=== PATIENT | female | born 1930 | race Caucasian/White ===

== ENCOUNTER → 2016-11-24 | Outpatient (CLI) | payer MEDICARE ==
[~2016-11-24] MED LIST: /ADVA50050; /LANS30GR; /TIOT18INH; /TIOT18INH INH; /WARF25TA; /WARF25TA OR; /WARF5TA; ACET65TA; ACUVAIL OU; ASPI1TAB PO; ASPI81TA3; ASPI81TA45 OR; ATOR1TAB21 PO; BONIVA; CALCCHW12; CALCCHW12 OR; CEFT500T; CIPR250T3 PO; CODCAP PO; COLA100C PO; COLA100C2 OR; COUM1TAB; COUM1TAB OR; COUM2.5T11 PO; DARV100T; DIET; DIGO0.126 OR; DIGO0.127 PO; FERR324T5 OR; FERR325T; FERROUS SULFATE; FURO20TA2 PO; KETOROLAC 0.5% OU; KLOR-CON; KLOR10TA; KLOR10TA OR; KLOR1TAB69 PO; LANO0.1211; LANO0.1211 OR; LANO1TAB23 PO; LASI20TA; LASI20TA OR; LASI40TA; LASIX; LEVO50TA45 PO; LEVO50TA5 PO; METO-346 PO; METO25TA2 OR; METO25TAB PO; METOPROLOL; METOPROLOL TARTRATE; MIRALEX PO; NITR0.3S SL; NORCOTAB PO; NORV5TAB; PERC5TAB8; PLAV75TA2; PLAV75TA2 OR; POTA10CA PO; POTA20TA2; PRED FORTE OU; PRED10TA2; PRED5TAB; PREV30TA OR; PROA1AER INH; RAMI25CA OR; RANI150C OR; RANI15TA PO; SENN8.6C PO; SIMV20TA2 OR; SYNT50TA; SYNT50TA OR; SYNT75TA PO; TIOT18INH INH; TOPR25TA OR; TRAM50TA2 OR; TRIC145T19; TYLENOL ARTHRITIS PO; VIT D 2000 PO; VITA100T17; VITA100T17 OR; VITA100T56 PO; VITA200016 PO; VITAMIN D; VITAMINE D; WARF1TAB OR; ZITH500T; ZOCO20TA; ZOCO40TA OR; [UNRECOGNIZED DRUG - REMARK]; [UNRECOGNIZED DRUG - REMARK]
--- NOTE | 2016-11-24 15:38 | REP ---
Chest x-ray: Two views. History: Cough. Comparison chest x-ray October 14, 2016. Findings: Epicardial pacemaker is seen unchanged. Moderate to marked cardiomegaly is again observed. The lungs are hyperinflated consistent with COPD. There is biapical pleuroparenchymal fibrosis. There is a linear density in the right upper perihilar region compatible with atelectasis or fibrosis. No pleural effusion is seen. No localized infiltrate is seen. There is marked diffuse osteopenia and lateral radiograph demonstrates wedging in most of the thoracic vertebrae. This exaggerates the thoracic kyphosis. Impression: Evidence of COPD with hyperinflation. Moderate to marked cardiomegaly with epicardial pacemaker in place. Biapical pleuroparenchymal fibrosis. Right upper lobe discoid atelectasis or linear fibrosis. Multiple osteoporotic wedge compression deformities in the thoracic spine with exaggerated thoracic kyphosis. Signed by Chandana Vallejo MD 11/24/2016 04:24 P
== END ==
LOC: M WUC 14:36
PROVIDERS: ATTEND Nurse Practitioner Family
DX: R05 Cough (principal)

== ENCOUNTER 2016-11-27 16:51 | Inpatient (IN) | payer MEDICARE ==
[~2016-11-27] VITALS: Ht 147.3 cm; Wt 44.8 kg
[2016-11-27] MEDS ORDERED: WARFARIN SOD 2.5 MG TAB PO SCH (17:00)
[2016-11-27] MEDS ORDERED: methylPREDNISolone INJ 125 MG/2 ML VIAL (J2930) As Ordered ONE (18:03)
[2016-11-27] MEDS ORDERED: IPRATROPIUM 0.5MG/ALBUTEROL 2.5MG INH SOL UD 3ML (DUONEB)(J7620) As Ordered ONE (18:05)
[2016-11-27 18:29] LABS: EOS # 0.1 K/mm3 (0.0-0.50); EOS % 3.1 % (0.0-3.0); LARGE UNSTAINED CELL # 0.2 K/mm3 (0.0-0.4); LARGE UNSTAINED CELL % 5.3 % (0.0-4.0); LYMPH # 1.5 K/mm3 (1.5-4.5); LYMPH % 43.7 % (24.0-44.0); MEAN CORPUSCULAR HEMOGLOBIN 30.6 pg (27.0-33.0); MEAN CORPUSCULAR HGB CONC 32.8 g/dl (32.0-36.5); MEAN CORPUSCULAR VOLUME 93.4 fl (80.0-96.0); MONO # 0.4 K/mm3 (0.0-0.8); MONO % 12.2 % (0.0-5.0); NEUTROPHILS % 34.7 % (36.0-66.0); PLATELET COUNT, AUTOMATED 102 k/mm3 (150-450); RED CELL DISTRIBUTION WIDTH 12.4 % (11.5-14.5)
[2016-11-27 18:35] LABS: INR 1.41
[2016-11-27 18:54] LABS: ANION GAP 9 MEQ/L (8-16); BLOOD UREA NITROGEN 29 MG/DL (7-18); CALCIUM LEVEL 8.3 MG/DL (8.8-10.2); CARBON DIOXIDE LEVEL 30 MEQ/L (21-32); CHLORIDE LEVEL 100 MEQ/L (98-107); CREATININE FOR GFR 1.04 MG/DL (0.55-1.02); GLOMERULAR FILTRATION RATE 53.5 (>32); GLUCOSE, FASTING 99 MG/DL (83-110); POTASSIUM SERUM 4.2 MEQ/L (3.5-5.1); SODIUM LEVEL 139 MEQ/L (136-145)
[2016-11-27 19:04] LABS: DIGOXIN LEVEL 0.7 NG/ML (0.5-2.0)
[2016-11-27] MEDS ORDERED: dexameTHASONE 20 MG/5 ML VIAL (J1100) As Ordered ONE (19:08)
--- NOTE | 2016-11-27 19:24 | REP ---
Chest x-ray: Single view: History: Shortness of breath. Findings: Epicardial pacemaker leads are seen. Moderate cardiomegaly is observed. There is biapical pleuroparenchymal fibrosis again noted fairly extensively. The lungs overall are hyperinflated. No acute infiltrate is seen. Impression: Cardiomegaly with epicardial pacemaker. Biapical pleuroparenchymal fibrosis. No new infiltrate. Signed by Chandana Vallejo MD 11/27/2016 07:31 P
[2016-11-27] MEDS ORDERED: ACETAMINOPHEN TAB 650MG DOSE (2X325MG) As Ordered ONE (20:51)
[2016-11-27] MEDS: ADVAIR DISKUS 250/50 INH PWD INH SCH (21:00)
[2016-11-27] MEDS ORDERED: cefTRIAXone SOD 2 GM in D5W MINI-BAG PLUS 50 ML IV ONE (21:30)
[2016-11-27] MEDS ORDERED: ONDANSETRON 4MG/2ML VIAL (J2405) IV PRN (21:30)
[2016-11-27] MEDS ORDERED: IPRATROPIUM 0.5MG/ALBUTEROL 2.5MG INH SOL UD 3ML (DUONEB)(J7620) NEB PRN (21:30)
[2016-11-27] MEDS ORDERED: AZITHROMYCIN INJ 500 MG, VIAL MATE ADAPTER 1 EACH in D5W 250 ML IV ONE (21:30)
[2016-11-27 21:56] LABS: ABG BASE EXCESS 2.9 (-2.0-2.0); ABG DEVICE NASAL CANN; ABG HCO3 26.4 MEQ/L (22.0-26.0); ABG PARTIAL PRESSURE CO2 36.9 mmHg (35.0-45.0); ABG PARTIAL PRESSURE O2 78.5 mmHg (75.0-100.0); ABG TOTAL CO2 27.6 MEQ/L (23.0-31.0); ABG pH (ARTERIAL) 7.473 UNITS (7.350-7.450)
[2016-11-27] MEDS ORDERED: WARF-18 PO (22:08)
[2016-11-27] MEDS ORDERED: SYNT50TA PO (22:08)
[2016-11-27] MEDS ORDERED: SENN-23 PO (22:10)
[2016-11-27] MEDS ORDERED: AUGM875T27 PO (22:10)
[2016-11-27] MEDS ORDERED: BENZ100C5 PO (22:10)
[2016-11-27] MEDS ORDERED: BENZONATATE 100 MG CAP PO PRN (22:30)
[2016-11-27] MEDS ORDERED: ALBUTEROL 90 MCG/ACT 8GM HFA INHALER INH PRN (22:30)
--- NOTE | 2016-11-27 23:21 | EDDOCDS ---
Physician Documentation [facility], [place] Name: Anitra Falk Age: 85 yrs Sex: Female : 1930 Arrival Date: 11/27/2016 Time: 16:51 Bed 13 Private MD: Isidro Ryan Disposition: 11/27/16 21:07 Hospitalization ordered by Roya Morrow for Inpatient Admission. Preliminary diagnosis is Chronic obstructive pulmonary disease with (acute) exacerbation. - Bed requested for 4 [place]. - Status is Inpatient Admission. mgs - Condition is Stable. - Problem is chronic. - Symptoms have improved. HPI: 11/27 18:08 This 85 yrs old Female presents to ER via Wheelchair with complaints of Cough.pc 18:08 The history is obtained from the patient, the patient's family/friend. The patient pc presents with shortness of breath, with a prior history of COPD. The symptoms began gradually 8 days ago. The symptoms are continuous, and are unchanged since they started. There were circumstances that led to the current symptoms, including; a recent upper respiratory illness. The patient has shortness of breath at rest. At their worst, the symptoms were moderate. In the emergency department, the symptoms are mild. The patient's shortness of breath is aggravated by coughing, is alleviated by nothing. The patient's dyspnea was accompanied with chills, cough, productive, of yellow sputum. The patient's known risk factors for coronary artery disease include:. The patient has experienced similar episodes in the past, chronically. The patient has been recently seen at an urgent care, twice in the past week and was started on Augmentin and then given Tessalon Perles, without any effective change in symptoms or any relief. She did not have any testing or imaging at either visit. She has COPD, no longer uses her Oxygen, does use her MDIs. Historical: - Allergies: unknown eye drop (Dystonic reaction); - Home Meds: 1. aspirin 81 mg Oral tab 1 tab once daily 2. atorvastatin 20 mg oral tab 1 tab once daily 3. cod liver oil oral daily 4. digoxin 125 mcg oral tab 0.5 tab once daily 5. potassium chloride 10 mEq Oral TbER 2 tabs once daily 6. Metoprolol Tartrate Oral 12.5 mg once daily 7. vitamin K 100 mcg daily 8. Vitamin D Oral 2000 unit daily 9. furosemide 20 mg Oral tab 1 tab once daily 10. ranitidine HCl 150 mg Oral cap 1 cap 2 times per day 11. warfarin 2.5 mg Oral tab 1 tab once daily 12. ProAir HFA 90 mcg/actuation inhalation HFAA 2 puffs as needed 13. levothyroxine 75 mcg oral cap once daily 14. Colace 100 mg oral cap 1 cap once daily 15. Senna-S 8.6-50 mg oral tab once daily 16. amoxicillin-pot clavulanate 875-125 mg Oral tab 1 tab every 12 hours 17. benzonatate 100 mg oral cap 1 cap 3 times per day - PMHx: Atrial Fib; COPD; Hypertension; Hypothyroidism; Pancreatitis; - PSHx: Pacemaker Insertion; Appendectomy; wirst surgery, bilateral; Stents, Coronary; left knee replacement; - The history from nurses notes was reviewed: and I agree with what is documented. - Social history: Smoking status: Patient states was never smoker of tobacco. No barriers to communication noted, The patient speaks fluent Tongan. - : The pt / caregiver states he / she is on anticoagulants: coumadin. Home medication list is obtained from the patient. - Hospitalizations: : No recent hospitalization is reported. - Exposure Risk Screening:: None identified. - Immunization history:: All immunizations up-to-date. - Family history: Not pertinent. - Social history:: the patient is a former smoker, the patient does not drink alcohol. ROS: 18:08 All systems are negative except as listed. The gastrointestinal and genitourinary pc components are also addressed in the HPI. Exam: 18:08 General Appearance: alert, the patient is in mild distress. pc 18:08 EENT: normal eye inspection, ears, nose and throat normal, pharynx normal, mucous membranes moist 18:08 Neck: normal inspection. 18:08 Respiratory: no respiratory distress, no pleuritic chest pain, speaks in full sentences, auscultation reveals wheezes, diffusely, decreased air entry noted left posterior lower lobe and right posterior lower lobe. 18:08 Cardiovascular: no jugular venous distension appreciated, no murmurs, no gallop, no friction rub, the heart rate is tachycardic, at 104 bpm, the rhythm is irregularly irregular 18:08 Abdomen: non-tender, non-distended, no organomegaly. 18:08 Skin: normal color, warm, dry. 18:08 Extremities: non-tender, normal range of motion of all joints. 18:08 Neuro: alert, oriented to person, place and time, cranial nerves normal as tested, no motor deficits, no sensory deficits. 18:08 Psych: normal mood. Vital Signs: 16:54 BP 106 / 59 RA Sitting (auto/reg); Pulse 104; Resp 18; Temp 96.4(T); Pulse Ox 98% on rs6 R/A; Weight 42.64 kg / 94.01 lbs (R); Height 4 ft. 11 in. (149.86 cm) (R); 18:14 BP 124 / 72 (auto/); rs3 18:15 Pulse 86 MON; Pulse Ox 100% ; rs3 18:25 Pulse 84 MON; Pulse Ox 100% ; rs3 18:59 BP 134 / 64 (auto/); mgs 18:59 Pulse 114 MON; Pulse Ox 95% ; mgs 19:14 BP 130 / 62 (auto/); mgs 19:14 Pulse 118 MON; Pulse Ox 98% ; mgs 19:44 BP 134 / 69 (auto/); mgs 19:44 Pulse 124 MON; Pulse Ox 94% ; mgs 19:59 BP 114 / 57 (auto/); mgs 19:59 Pulse 116 MON; Pulse Ox 91% ; mgs 20:14 BP 130 / 71 (auto/); mgs 20:14 Pulse 110 MON; Pulse Ox 91% ; mgs 20:29 Pulse 110 MON; mgs 20:29 BP 124 / 71 (auto/); mgs 20:44 BP 117 / 63 (auto/); mgs 20:44 Pulse 102 MON; mgs 20:59 BP 118 / 65 (auto/); mgs 20:59 Pulse 100 MON; mgs 21:14 BP 124 / 71 (auto/); mgs 21:14 Pulse 98 MON; mgs 21:29 BP 122 / 73 (auto/); mgs 21:29 Pulse 102 MON; mgs 21:44 BP 122 / 71 (auto/); mgs 21:44 Pulse 106 MON; mgs 21:59 BP 119 / 70 (auto/); mgs 21:59 Pulse 100 MON; mgs 22:10 Pain 6/10; mgs 22:14 BP 122 / 65 (auto/); mgs 22:14 Pulse 108 MON; mgs 22:29 BP 119 / 62 (auto/); mgs 22:29 Pulse 102 MON; mgs 22:34 BP 114 / 63 (auto/); mgs 22:34 Pulse 100 MON; mgs 22:37 BP 114 / 63 LA Sitting (auto/reg); Pulse 100 MON; Resp 20 S; Temp 98.8(TE); Pulse Ox cln 94% on R/A; Pain 3/10; 22:44 BP 116 / 67 (auto/); mgs 22:44 Pulse 98 MON; Pulse Ox 91% ; mgs 22:59 BP 117 / 65 (auto/); mgs 22:59 Pulse 94 MON; Pulse Ox 90% ; mgs 23:14 BP 115 / 66 (auto/); mgs 23:14 Pulse 94 MON; Pulse Ox 90% ; mgs 16:54 Body Mass Index 18.99 (42.64 kg, 149.86 cm) rs6 MDM: 17:59 Obtain sample by nasopharyngeal swab ordered. pc 17:59 Solu-MEDROL 125 mg IVP once ordered. pc 17:59 -Blood Culture (Adults Only), peripheral from different site, or from device/port/PICC pc etc. if present ordered. 17:59 [employer] Tester/Pulse Ox/q 15 min VS ordered. pc 17:59 IV Saline Lock ordered. pc 17:59 Rhythm Strip to chart ordered. pc 17:59 Albuterol-Ipratropium 1 neb Nebulizer every 20 minutes x3 ordered. pc 18:00 B-Type Natiuretic Peptide Ordered. EDMS 18:00 Basic Metabolic Profile Ordered. EDMS 18:00 CBC with Diff Ordered. EDMS 18:00 Cardiac Injury Profile Ordered. EDMS 18:00 Troponin Ordered. EDMS 18:00 Digoxin Level Ordered. EDMS 18:00 INR Ordered. EDMS 18:00 -Influenza A&B Rapid Antigen - Nose Ordered. EDMS 18:00 -Blood Culture Ordered. EDMS 18:01 Chest, 1 View Ordered. EDMS 18:01 ECG WITH READING ER PHYS+CARDIAG ordered. EDMS 18:06 -Blood Culture (Adults Only), peripheral from different site, or from device/port/PICC lbd etc. if present complete. 18:08 Differential diagnosis: CHF, Chronic Obstructive Pulmonary Disease pneumonia, pc Influenza. Plan: labs, nebs, CXR, EKG. 18:10 BLOOD CULTURES Ordered. EDMS 19:04 Dexamethasone 10 mg IV at bolus once ordered. cs11 19:05 Sputum Culture & Gram Stain Ordered. EDMS 19:47 B-Type Natiuretic Peptide Reviewed. cs11 19:47 Basic Metabolic Profile Reviewed. cs11 19:47 CBC with Diff Reviewed. cs11 19:47 INR Reviewed. cs11 19:47 -Influenza A&B Rapid Antigen - Nose Reviewed. cs11 19:47 Cardiac Injury Profile Reviewed. cs11 19:47 Troponin Reviewed. cs11 19:47 Digoxin Level Reviewed. cs11 19:47 Chest, 1 View Reviewed. cs11 20:13 Acetaminophen Tablet 650 mg PO once ordered. cs11 20:38 [facility] Payment Agreement was scanned into [employer] and attached to record. jp5 20:39 Financial registration complete. jp5 20:55 BED REQUEST+ADM ordered. EDMS 20:59 Chest, 1 View Reviewed. cs11 21:03 Call Respiratory ordered. cs11 21:04 -Arterial Blood Gas Ordered. EDMS 21:12 Call Respiratory complete. mgs 21:28 CARDIAC MARKER PANEL Ordered. EDMS 21:28 PROTHROMBIN TIME PROFILE\E\INR Ordered. EDMS 21:28 C REACTIVE PROTEIN QUANTITATIV Ordered. EDMS 21:29 COMPLETE BLOOD COUNT Ordered. EDMS 21:29 BASIC METABOLIC PROFILE Ordered. EDMS 21:29 MAGNESIUM LEVEL Ordered. EDMS 21:29 RESPIRATORY PANEL Ordered. EDMS 21:31 PHYSICAL THERAPY EVAL & TREAT ordered. EDMS 21:32 Admission / Observation Status ordered. EDMS 21:32 ELECTROCARDIOGRAM ADULT ordered. EDMS 21:32 LOW FAT LOW CHOLESTEROL DIET ordered. EDMS Administered Medications: 18:05 Drug: Albuterol-Ipratropium 1 neb [ipratropium-albuterol 0.5 mg-3 mg(2.5 mg base)/3 mL cs15 nebulization soln (1 neb)] Route: Nebulizer; 18:24 Drug: Solu-MEDROL 125 mg [Solu-Medrol 500 mg intravenous solution (125 mg)] Route: IVP; rs3 Site: right antecubital; 18:27 Drug: Albuterol-Ipratropium 1 neb [ipratropium-albuterol 0.5 mg-3 mg(2.5 mg base)/3 mL cs15 nebulization soln (1 neb)] Route: Nebulizer; 18:31 Drug: Albuterol-Ipratropium 1 neb [ipratropium-albuterol 0.5 mg-3 mg(2.5 mg base)/3 mL cs15 nebulization soln (1 neb)] Route: Nebulizer; 19:15 Drug: Dexamethasone 10 mg [dexamethasone 4 mg/mL injection solution] Route: IV; Rate: mgs bolus; Site: right antecubital; 21:12 Drug: Acetaminophen 650 mg [acetaminophen 325 mg tablet (2 tabs)] Route: PO; mgs 22:10 Follow up: Pain 04/03 Adult; Response: Pain is decreased mgs Signatures: Dispatcher [employer] EDMS Michael Tejada MD MD pc Daly, Linda, [employer] lbd Tasha Govea RN Jareth Hodge, DO cs11 Berto Tavares RN RN mgs Yusuf Dumont jp5 Herbert Abdul RN RN sa Soosairaj, Rosemary RN rs3 Angel Brambila RT cs15 The chart was reviewed and I authenticate all verbal orders and agree with the evaluation and treatment provided.Corrections: (The following items were deleted from the chart) 21:37 21:28 C REACTIVE PROTEIN QUANTITATIV ordered. EDMS EDMS Attachments: 20:38 [facility] Payment Agreement jp5 MTDD
--- NOTE | 2016-11-27 23:21 | EDDOCDS ---
Nurse's Notes [facility] Name: Anitra Falk Age: 85 yrs Sex: Female : 1930 Arrival Date: 11/27/2016 Time: 16:51 Bed 13 Private MD: Isidro Ryan Diagnosis: Chronic obstructive pulmonary disease with (acute) exacerbation Presentation: 11/27 16:59 Presenting complaint: daughter states seen one week ago at urgent care and told URI jjr given antibiotic, seen again this past Wednesday and given cough suppressant pt presents with no improvement in cough now c/o RAVI chest ache and decreased appetite. Adult Sepsis Screening: The patient does not have new or worsening altered mentation. Patient's respiratory rate is less than 22. Systolic blood pressure is greater than 100. Patient has a qSOFA score of 0- Negative Sepsis Screen. Suicide/Homicide risk assessment- the patient denies having any suicidal and/or homicidal ideations and does not present with any other emotional, behavioral or mental health complaints. 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 Transition of care: patient was not received from another setting of care. 16:59 Acuity: TEJAL Level 3 jjr 16:59 Method Of Arrival: Wheelchair jjr Triage Assessment: 17:05 General: Appears in no apparent distress, Behavior is appropriate for age. Pain: jjr Location: chest and head. Respiratory: Airway is patent Respiratory effort is even, unlabored, Respiratory pattern is regular. Derm: No deficits noted. Historical: - Allergies: unknown eye drop (Dystonic reaction); - Home Meds: 1. aspirin 81 mg Oral tab 1 tab once daily 2. atorvastatin 20 mg oral tab 1 tab once daily 3. cod liver oil oral daily 4. digoxin 125 mcg oral tab 0.5 tab once daily 5. potassium chloride 10 mEq Oral TbER 2 tabs once daily 6. Metoprolol Tartrate Oral 12.5 mg once daily 7. vitamin K 100 mcg daily 8. Vitamin D Oral 2000 unit daily 9. furosemide 20 mg Oral tab 1 tab once daily 10. ranitidine HCl 150 mg Oral cap 1 cap 2 times per day 11. warfarin 2.5 mg Oral tab 1 tab once daily 12. ProAir HFA 90 mcg/actuation inhalation HFAA 2 puffs as needed 13. levothyroxine 75 mcg oral cap once daily 14. Colace 100 mg oral cap 1 cap once daily 15. Senna-S 8.6-50 mg oral tab once daily 16. amoxicillin-pot clavulanate 875-125 mg Oral tab 1 tab every 12 hours 17. benzonatate 100 mg oral cap 1 cap 3 times per day - PMHx: Atrial Fib; COPD; Hypertension; Hypothyroidism; Pancreatitis; - PSHx: Pacemaker Insertion; Appendectomy; wirst surgery, bilateral; Stents, Coronary; left knee replacement; - The history from nurses notes was reviewed: and I agree with what is documented. - Social history: Smoking status: Patient states was never smoker of tobacco. No barriers to communication noted, The patient speaks fluent Cypriot. - : The pt / caregiver states he / she is on anticoagulants: coumadin. Home medication list is obtained from the patient. - Hospitalizations: : No recent hospitalization is reported. - Exposure Risk Screening:: None identified. - Immunization history:: All immunizations up-to-date. - Family history: Not pertinent. - Social history:: the patient is a former smoker, the patient does not drink alcohol. Screenin:35 Screening information is obtained from the patient. Fall risk: At risk due to age, gait mgs disturbance. Assistance ADL's: requires no assistance with activities of daily living. Abuse/DV Screen: The patient / caregiver reports he/she is: not in a situation that causes fear, pain or injury. Nutritional screening: No deficits noted. Advance Directives: Currently, there is a health care proxy, ABUNDIO BAUTISTA, DAUGHTER. home support is adequate. Assessment: 17:42 General: Appears in no apparent distress, Behavior is appropriate for age, cooperative. rs3 Pain: Location: headache and chest pressure. Neurological: Level of Consciousness is awake, alert, Oriented to person, place, time, Garageman are equal bilaterally. Cardiovascular: Capillary refill < 3 seconds Heart tones S1 S2 present. Respiratory: Airway is patent Respiratory effort is even, unlabored, Breath sounds are coarse bilaterally. Derm: Skin is pink, warm & dry. 18:25 General: Appears in no apparent distress, Behavior is appropriate for age, cooperative, rs3 getting respiratory treatment. states has helped with relieving chest pressure/headache slightly. instructed to obtain sputum for culture. family at bedside. breathes easy. denies of acute distress. 19:16 Adult Sepsis Screening: The patient does not have new or worsening altered mentation. mgs Patient has a respiratory rate of greater than or equal to 22 (1 point). Systolic blood pressure is greater than 100. Patient has a qSOFA score of 1- Negative Sepsis Screen. General: Appears in no apparent distress, Behavior is appropriate for age, cooperative. Neurological: Level of Consciousness is awake, alert, Oriented to person, place, time. Cardiovascular: Capillary refill < 3 seconds. Respiratory: Airway is patent Respiratory effort is even, unlabored. Derm: Skin is pink, warm & dry. 20:08 General: Appears in no apparent distress, Behavior is appropriate for age, cooperative. mgs Pain: Location: HEAD Pain currently is 9 out of 10 on a pain scale. Quality of pain is described as aching. Neurological: Level of Consciousness is awake, alert, Oriented to person, place, time. Cardiovascular: Capillary refill < 3 seconds. Respiratory: Airway is patent Respiratory effort is even, unlabored, Respiratory pattern is regular, symmetrical. Derm: Skin is pink, warm & dry. 21:13 General: Appears in no apparent distress, Behavior is appropriate for age, cooperative. mgs Neurological: Level of Consciousness is awake, alert, Oriented to person, place, time. Cardiovascular: Capillary refill < 3 seconds. Respiratory: Airway is patent Respiratory effort is even, unlabored, Respiratory pattern is regular, symmetrical. Derm: Skin is pink, warm & dry. 22:11 General: Appears in no apparent distress, Behavior is appropriate for age, cooperative. mgs Neurological: Level of Consciousness is awake, alert, Oriented to person, place, time. Cardiovascular: Capillary refill < 3 seconds. Respiratory: Airway is patent Respiratory effort is even, unlabored, Respiratory pattern is regular, symmetrical. Derm: Skin is pink, warm & dry. 22:39 Adult Sepsis Screening: The patient does not have new or worsening altered mentation. mgs Patient's respiratory rate is less than 22. Systolic blood pressure is greater than 100. Patient has a qSOFA score of 0- Negative Sepsis Screen. General: Appears in no apparent distress, Behavior is appropriate for age, cooperative. Neurological: Level of Consciousness is awake, alert, Oriented to person, place, time. Cardiovascular: Capillary refill < 3 seconds. Respiratory: Airway is patent Respiratory effort is even, unlabored, Respiratory pattern is regular, symmetrical. Derm: Skin is pink, warm & dry. 23:17 General: Appears in no apparent distress, Behavior is appropriate for age, cooperative. mgs Neurological: Level of Consciousness is awake, alert, Oriented to person, place, time. Cardiovascular: Capillary refill < 3 seconds. Respiratory: Airway is patent Respiratory effort is even, unlabored, Respiratory pattern is regular, symmetrical. Derm: Skin is pink, warm & dry. Vital Signs: 16:54 BP 106 / 59 RA Sitting (auto/reg); Pulse 104; Resp 18; Temp 96.4(T); Pulse Ox 98% on rs6 R/A; Weight 42.64 kg (R); Height 4 ft. 11 in. (149.86 cm) (R); 18:14 BP 124 / 72 (auto/); rs3 18:15 Pulse 86 MON; Pulse Ox 100% ; rs3 18:25 Pulse 84 MON; Pulse Ox 100% ; rs3 18:59 BP 134 / 64 (auto/); mgs 18:59 Pulse 114 MON; Pulse Ox 95% ; mgs 19:14 BP 130 / 62 (auto/); mgs 19:14 Pulse 118 MON; Pulse Ox 98% ; mgs 19:44 BP 134 / 69 (auto/); mgs 19:44 Pulse 124 MON; Pulse Ox 94% ; mgs 19:59 BP 114 / 57 (auto/); mgs 19:59 Pulse 116 MON; Pulse Ox 91% ; mgs 20:14 BP 130 / 71 (auto/); mgs 20:14 Pulse 110 MON; Pulse Ox 91% ; mgs 20:29 Pulse 110 MON; mgs 20:29 BP 124 / 71 (auto/); mgs 20:44 BP 117 / 63 (auto/); mgs 20:44 Pulse 102 MON; mgs 20:59 BP 118 / 65 (auto/); mgs 20:59 Pulse 100 MON; mgs 21:14 BP 124 / 71 (auto/); mgs 21:14 Pulse 98 MON; mgs 21:29 BP 122 / 73 (auto/); mgs 21:29 Pulse 102 MON; mgs 21:44 BP 122 / 71 (auto/); mgs 21:44 Pulse 106 MON; mgs 21:59 BP 119 / 70 (auto/); mgs 21:59 Pulse 100 MON; mgs 22:10 Pain 6/10; mgs 22:14 BP 122 / 65 (auto/); mgs 22:14 Pulse 108 MON; mgs 22:29 BP 119 / 62 (auto/); mgs 22:29 Pulse 102 MON; mgs 22:34 BP 114 / 63 (auto/); mgs 22:34 Pulse 100 MON; mgs 22:37 BP 114 / 63 LA Sitting (auto/reg); Pulse 100 MON; Resp 20 S; Temp 98.8(TE); Pulse Ox cln 94% on R/A; Pain 3/10; 22:44 BP 116 / 67 (auto/); mgs 22:44 Pulse 98 MON; Pulse Ox 91% ; mgs 22:59 BP 117 / 65 (auto/); mgs 22:59 Pulse 94 MON; Pulse Ox 90% ; mgs 23:14 BP 115 / 66 (auto/); mgs 23:14 Pulse 94 MON; Pulse Ox 90% ; mgs 16:54 Body Mass Index 18.99 (42.64 kg, 149.86 cm) [facility] Vitals: 16:54 Log In Time: November 27, 2016 at 16:54. 6 ED Course: 16:54 Patient visited by Randi Lacy PCA. rs6 16:54 Isidro Ryan MD is Private Physician. rs6 16:54 Patient moved to Waiting rs6 16:56 Patient visited by Randi Lacy PCA. rs6 16:56 Patient moved to Pre RCE rs6 17:00 Triage Initiated jjr 17:05 Analy Koenig,RN is Primary Nurse. jjr 17:05 Patient moved to 13 jjr 17:35 Michael Tejada MD is Attending Physician. pc 17:42 Patient visited by Analy Koenig,JORGITO. rs3 17:59 Patient visited by Michael Tejada MD. pc 18:24 BLOOD CULTURES Sent. rs3 18:24 -Blood Culture Sent. rs3 18:24 INR Sent. rs3 18:24 Digoxin Level Sent. rs3 18:24 B-Type Natiuretic Peptide Sent. rs3 18:24 Basic Metabolic Profile Sent. rs3 18:24 CBC with Diff Sent. rs3 18:24 Cardiac Injury Profile Sent. rs3 18:24 Troponin Sent. rs3 18:24 -Influenza A&B Rapid Antigen - Nose Sent. rs3 18:47 Patient visited by Radha Mcdonald. sew 18:47 EKG done. (by ED staff). Reviewed by Michael Tejada MD. sew 19:01 Attending Physician role handed off by Michael Tejada MD cs11 19:01 Jareth Zamora DO is Attending Physician. cs11 19:16 Sputum Culture & Gram Stain Sent. mgs 19:22 Patient visited by Berto Tavares RN. mgs 19:41 Chest, 1 View Returned. EDMS 20:08 Patient visited by Berto Tavares RN. mgs 20:33 Chest, 1 View Returned. EDMS 20:38 [facility] Payment Agreement was scanned into shopp and attached to record. jp5 21:07 Roya Morrow is Hospitalizing Provider. cs11 21:15 Patient visited by Berto Tavares RN. mgs 21:51 -Arterial Blood Gas Sent. nk1 22:12 Patient visited by Berto Tavares RN. mgs 22:36 The patient / caregiver is instructed regarding the plan of care and ED course. mgs 22:36 Inserted saline lock: 20 gauge in right antecubital area. mgs 22:36 No procedures done that require assistance. mgs 22:38 Patient visited by Sakina Omer PCA. cln Administered Medications: 18:05 Drug: Albuterol-Ipratropium 1 neb [ipratropium-albuterol 0.5 mg-3 mg(2.5 mg base)/3 mL cs15 nebulization soln (1 neb)] Route: Nebulizer; 18:24 Drug: Solu-MEDROL 125 mg [Solu-Medrol 500 mg intravenous solution (125 mg)] Route: IVP; rs3 Site: right antecubital; 18:27 Drug: Albuterol-Ipratropium 1 neb [ipratropium-albuterol 0.5 mg-3 mg(2.5 mg base)/3 mL cs15 nebulization soln (1 neb)] Route: Nebulizer; 18:31 Drug: Albuterol-Ipratropium 1 neb [ipratropium-albuterol 0.5 mg-3 mg(2.5 mg base)/3 mL cs15 nebulization soln (1 neb)] Route: Nebulizer; 19:15 Drug: Dexamethasone 10 mg [dexamethasone 4 mg/mL injection solution] Route: IV; Rate: mgs bolus; Site: right antecubital; 21:12 Drug: Acetaminophen 650 mg [acetaminophen 325 mg tablet (2 tabs)] Route: PO; mgs 22:10 Follow up: Pain 04/03 Adult; Response: Pain is decreased mgs RT: 18:12 Initial Med Neb Given as ordered. Respiratory: Respiratory effort is unlabored, cs15 Respiratory pattern is Pt has extended expiration time suggesting emphysema. Breath sounds with crackles in left posterior lower lobe and right posterior lower lobe Reports that she does not take anything for breathing at home but wears o2 as needed. 18:31 Respiratory: Breath sounds with crackles bilaterally. in left posterior upper lobe, cs15 right posterior upper lobe, left posterior lower lobe, right posterior middle lobe and right posterior lower lobe. 21:51 ABG's drawn from right radial artery pressure held for 5 minutes no bleeding noted nk1 pressure bandage applied specimen sent pt. tolerated well. Order Results: Lab Order: -Influenza A&B Rapid Antigen - Nose; SPEC'M 11/27/16 18:10 Test: INFLUENZA A RAPID SCR by ICA; Value: INFLUENZA A RESULTS NEGATIVE; Status: F Test: INFLUENZA A RAPID SCR by ICA; Value: Comments:; Status: F Test: INFLUENZA B RAPID SCR by ICA; Value: INFLUENZA B RESULTS NEGATIVE; Status: F Test Note: ; The Influenza test is a direct rapid immunoassay for the qualitative detection of Influenza viral antigen. Cell culture (Viral Culture) testing should be considered to confirm NEGATIVE results and to assist in detecting other viruses that can provide similar clinical symptoms. Please contact the lab within 24 hours ([phone]) if confirmatory testing is desired. Lab Order: B-Type Natiuretic Peptide; SPEC'M 11/27/16 18:10 Test: BRAIN NATRIURETIC PEPTIDE; Value: 222; Range: <100; Abnormal: Above high normal; Units: PG/ML; Status: F Lab Order: Basic Metabolic Profile; SPEC'M 11/27/16 18:10 Test: GLUCOSE, FASTING; Value: 99; Range: 83-110; Units: MG/DL; Status: F Test: BLOOD UREA NITROGEN; Value: 29; Range: 7-18; Abnormal: Above high normal; Units: MG/DL; Status: F Test: CREATININE FOR GFR; Value: 1.04; Range: 0.55-1.02; Abnormal: Above high normal; Units: MG/DL; Status: F Test: GLOMERULAR FILTRATION RATE; Value: 53.5; Range: >32; Status: F Test: SODIUM LEVEL; Value: 139; Range: 136-145; Units: MEQ/L; Status: F Test: POTASSIUM SERUM; Value: 4.2; Range: 3.5-5.1; Units: MEQ/L; Status: F Test: CHLORIDE LEVEL; Value: 100; Range: 98-107; Units: MEQ/L; Status: F Test: CARBON DIOXIDE LEVEL; Value: 30; Range: 21-32; Units: MEQ/L; Status: F Test: ANION GAP; Value: 9; Range: 8-16; Units: MEQ/L; Status: F Test: CALCIUM LEVEL; Value: 8.3; Range: 8.8-10.2; Abnormal: Below low normal; Units: MG/DL; Status: F Test Note: ; Units are mL/min/1.73 m2 Chronic Kidney Disease Staging per NKF: Stage I & II GFR >=60 Normal to Mildly Decreased Stage III GFR 30-59 Moderately Decreased Stage IV GFR 15-29 Severely Decreased Stage V GFR <15 Very Little GFR Left ESRD GFR <15 on LEATH[employer] Lab Order: CBC with Diff; SPEC'M 11/27/16 18:10 Test: WHITE BLOOD COUNT; Value: 3.0; Range: 4.0-10.0; Abnormal: Below low normal; Units: K/mm3; Status: F Test: RED BLOOD COUNT; Value: 3.91; Range: 4.00-5.40; Abnormal: Below low normal; Units: M/mm3; Status: F Test: HEMOGLOBIN; Value: 12.0; Range: 12.0-16.0; Units: g/dl; Status: F Test: HEMATOCRIT; Value: 36.5; Range: 36.0-47.0; Units: %; Status: F Test: MEAN CORPUSCULAR VOLUME; Value: 93.4; Range: 80.0-96.0; Units: fl; Status: F Test: MEAN CORPUSCULAR HEMOGLOBIN; Value: 30.6; Range: 27.0-33.0; Units: pg; Status: F Test: MEAN CORPUSCULAR HGB CONC; Value: 32.8; Range: 32.0-36.5; Units: g/dl; Status: F Test: RED CELL DISTRIBUTION WIDTH; Value: 12.4; Range: 11.5-14.5; Units: %; Status: F Test: PLATELET COUNT, AUTOMATED; Value: 102; Range: 150-450; Abnormal: Below low normal; Units: k/mm3; Status: F Test: NEUTROPHILS %; Value: 34.7; Range: 36.0-66.0; Abnormal: Below low normal; Units: %; Status: F Test: LYMPH %; Value: 43.7; Range: 24.0-44.0; Units: %; Status: F Test: MONO %; Value: 12.2; Range: 0.0-5.0; Abnormal: Above high normal; Units: %; Status: F Test: EOS %; Value: 3.1; Range: 0.0-3.0; Abnormal: Above high normal; Units: %; Status: F Test: BASO %; Value: 1.0; Range: 0.0-1.0; Units: %; Status: F Test: LARGE UNSTAINED CELL %; Value: 5.3; Range: 0.0-4.0; Abnormal: Above high normal; Units: %; Status: F Test: NEUTROPHILS #; Value: 1.0; Range: 1.8-7.7; Abnormal: Below low normal; Units: K/mm3; Status: F Test: LYMPH #; Value: 1.5; Range: 1.5-4.5; Units: K/mm3; Status: F Test: MONO #; Value: 0.4; Range: 0.0-0.8; Units: K/mm3; Status: F Test: EOS #; Value: 0.1; Range: 0.0-0.50; Units: K/mm3; Status: F Test: BASO #; Value: 0.0; Range: 0.0-0.2; Units: K/mm3; Status: F Test: LARGE UNSTAINED CELL #; Value: 0.2; Range: 0.0-0.4; Units: K/mm3; Status: F Lab Order: Cardiac Injury Profile; SPEC'M 11/27/16 18:10 Test: CPK CREATINE PHOSPHOKINASE; Value: 131; Range: 26-192; Units: U/L; Status: F Test: CK-MB VALUE MASS; Value: 1.7; Range: 0.0-3.6; Units: NG/ML; Status: F Test: MB/CK RELATIVE INDEX; Value: 1.29; Range: < OR =4; Status: F Test Note: ; DIAGNOSIS CRITERIA MMB ng/ml Relative Index (RI) NON-AMI < or = 5 N/A CRUZ ZONE > 5 < or = 4 AMI > 5 > 4 Lab Order: Troponin; [facility] 11/27/16 18:10 Test: TROPONIN I; Value: < 0.02; Range: < 0.10; Units: NG/ML; Status: F Test Note: ; Troponin I Reference Interval for [employer] LOCI: 99th Percentile= 0.00-0.045 ng/ml Risk Stratification: <= 0.10 ng/ml Decreased Risk for Adverse Clinical Events. 0.10-1.50 ng/ml Increased Risk for Adverse Clinical Events. Evaluation of additional criterion and/or repeat testing in 2-6 hours is suggested to rule out myocardial damage. >= 1.50 ng/ml Indicative of Myocardial Injury. Lab Order: Digoxin Level; [facility] 11/27/16 18:10 Test: DIGOXIN LEVEL; Value: 0.7; Range: 0.5-2.0; Units: NG/ML; Status: F Lab Order: INR; [facility] 11/27/16 18:10 Test: PROTHROMBIN TIME; Value: 17.4; Range: 12.3-14.5; Abnormal: Above high normal; Units: SECONDS; Status: F Test: INR; Value: 1.41; Status: F Test Note: ; THERAPUTIC HUMAN INR VALUES INDICATIONS NORMAL RANGES PROPHYLAXIS/TREATMENT OF: VENOUS THROMBOSIS 2.0-3.0 PULMONARY EMBOLISM 2.0-3.0 PREVENTION OF SYSTEMIC EMBOLISM FROM: TISSUE HEART VALVES 2.0-3.0 ACUTE MYOCARDIAL INFARCTION 2.0-3.0 VALVULAR HEART DISEASE 2.0-3.0 ATRIAL FIBRILLATION 2.0-3.0 MECHANICAL VALVES(HIGH RISK) 2.5-3.5 RECURRENT MYOCARDIAL INFARCTION 2.5-3.5 Lab Order: -Arterial Blood Gas; SPEC'M 11/27/16 21:33 Test: ABG pH (ARTERIAL); Value: 7.473; Range: 7.350-7.450; Abnormal: Above high normal; Units: UNITS; Status: F Test: ABG PARTIAL PRESSURE CO2; Value: 36.9; Range: 35.0-45.0; Units: mmHg; Status: F Test: ABG PARTIAL PRESSURE O2; Value: 78.5; Range: 75.0-100.0; Units: mmHg; Status: F Test: ABG TOTAL CO2; Value: 27.6; Range: 23.0-31.0; Units: MEQ/L; Status: F Test: ABG HCO3; Value: 26.4; Range: 22.0-26.0; Abnormal: Above high normal; Units: MEQ/L; Status: F Test: ABG BASE EXCESS; Value: 2.9; Range: -2.0-2.0; Abnormal: Above high normal; Status: F Test: ABG STANDARD HCO3; Value: 27.0; Range: 22.0-26.0; Abnormal: Above high normal; Units: MEQ/L; Status: F Test: ABG O2 SATURATION; Value: 96.0; Range: 95.0-99.0; Units: %; Status: F Test: ABG DEVICE; Value: NASAL FORREST; Status: F Lab Order: RESPIRATORY PANEL; SPEC'M 11/27/16 18:06 Test: RESPIRATORY PANEL; Value: RP PANEL RESULT POSITIVE by PCR; Abnormal: Abnormal; Status: F Test: RESPIRATORY PANEL; Value: Comments:; Status: F Test: RESPIRATORY PANEL; Value: ORGANISM 1: RESPIRATORY SYNCYTIAL VIRUS; Status: F Test: RESPIRATORY PANEL; Value: RESPIRATORY SYNCYTIAL VIRUS; Status: F Test: RESPIRATORY PANEL; Value: RSV 1 RSV is the most common cause of severe respiratory; Status: F Test: RESPIRATORY PANEL; Value: RSV 2 disease in infants, with acute bronchiolitis as the; Status: F Test: RESPIRATORY PANEL; Value: RSV 3 major cause of hospitalization. Treatment or; Status: F Test: RESPIRATORY PANEL; Value: RSV 4 prophlaxis with a humanized monoclonal antibody; Status: F Test: RESPIRATORY PANEL; Value: RSV 5 has shown a reduction in disease for high risk infants.; Status: F Test Note: ; This respiratory PCR panel detects Influenza A H1, H3 and 2009 H1 viruses, Influenza B virus, Respiratory syncytial virus, Human metapneumovirus, Parainfluenza virus 1, 2, 3 and 4, Adenovirus, Rhinovirus/Enterovirus, Coronavirus HKU1, NL63, OC43 and 229E, Bordetella pertussis, Mycoplasma pneumoniae and Chlamydia pneumoniae. Lab Order: C REACTIVE PROTEIN QUANTITATIV; SPEC'M 11/27/16 18:10 Test: C REACTIVE PROTEIN QUANTITATIV; Value: 1.09; Range: 0.00-0.30; Abnormal: Above high normal; Units: MG/DL; Status: F Radiology Order: Chest, 1 View Test: Chest, 1 View REASON FOR EXAMINATION: Shortness of Breath; Chest x-ray: Single view:; ; History: Shortness of breath.; ; Findings: Epicardial pacemaker leads are seen. Moderate cardiomegaly is; observed. There is biapical pleuroparenchymal fibrosis again noted fairly; extensively. The lungs overall are hyperinflated. No acute infiltrate is seen.; ; Impression:; ; Cardiomegaly with epicardial pacemaker. Biapical pleuroparenchymal fibrosis. No; new infiltrate.; ; ; Signed by; Chandana Vallejo MD 11/27/2016 07:31 P; Outcome: 21:07 Decision to Hospitalize by Provider. cs11 23:18 Discharge Assessment: Patient awake, alert and oriented x 3. No cognitive and/or mgs functional deficits noted. Patient verbalized understanding of disposition instructions. patient administered narcotics - no. The following High Risk Discharge criteria are identified: None. Admitted to Med/Surg accompanied by nurse, family with patient, via stretcher, with chart. Condition: stable. Property sent home with patient. 23:19 No special radiology studies were completed. mgs 23:20 Patient left the ED. mgs Signatures: Dispatcher [employer] EDMS Michael Tejada MD MD pc Kruger, Nora,RT RT nk1 Tasha Govea RN RN jjr Soosairaj, Rosemary, RN RN rs3 Radha Mcdonald Craig, DO cs11 Berto Tavares RN RN mgs Randi Lacy, ADMINISTRATION ASSISTANT ADMINISTRATION ASSISTANT rs6 Yusuf Dumont jp5 Brambila,Angel,RT RT cs15 Omer, Crystal, ADMINISTRATION ASSISTANT ADMINISTRATION ASSISTANT cln MTDD
--- NOTE | 2016-11-27 23:23 | HPE ---
DATE OF ADMISSION: 11/27/2016 PRIMARY CARE PROVIDER: Dr. Ryan CHIEF COMPLAINT: Coughing. HISTORY OF PRESENT ILLNESS: This is an 85-year-old female patient with underlying medical history of coronary artery disease, chronic obstructive pulmonary disease (COPD) with abdominal wall pacemaker, remote history of pulmonary embolism, atrial fibrillation not on anticoagulation, chronic anemia, hypothyroidism, osteoporosis, hypertensive heart disease with congestive heart failure (CHF) and diastolic and systolic dysfunction, pulmonary hypertension, chronic kidney disease. Baseline at home high functioning. Walks with a cane and lives with family, presented with significant cough since Wednesday last week. Was treated with outpatient regimen of Augmentin with no improvement. Symptoms have been progressively worsening with chills. On intermittent oxygen at home, productive mucus but unknown color, coughing with yellow sputum, sick contact at home with grandson who had upper respiratory infection symptoms but not as severe. Denies any chest pain, pressure or discomfort. Reported chest congestion. Denies any abdominal pain, diarrhea or constipation. Denies any vision change, hearing change. ALLERGIES: CYCLOPENTOLATE, SUN, MOLDS, SMUTS. PAST MEDICAL HISTORY: 1. Atrial fibrillation. 2. Chronic obstructive pulmonary disease (COPD). 3. Coronary artery disease. 4. Abdominal wall pacemaker. 5. Remote history of pulmonary embolism. 6. Atrial fibrillation. 7. Chronic anemia. 8. Hypothyroidism. 9. Osteoporosis. 10. Hypertensive heart disease with CHF, diastolic and systolic dysfunction. 11. Pulmonary hypertension. 12. Chronic kidney disease. PAST SURGICAL HISTORY: 1. Pacemaker. 2. Cardiac stents. 3. Left knee arthroplasty. 4. Bilateral cataracts. 5. Appendectomy. 6. Wrist surgery. SOCIAL HISTORY: Lives at home. Denies smoking or alcohol use or illicit drug use. FAMILY HISTORY: Noncontributory. REVIEW OF SYSTEMS: 11 point review of systems negative except for those mentioned in the history of present illness. HOME MEDICATIONS: - ProAir two puff inhalation four times a day as needed - Augmentin 875 mg by mouth twice a day - aspirin 81 mg by mouth daily - Lipitor 20 mg by mouth at night - Benzonatate 100 mg by mouth every 8 hours as needed - cod liver oil, one capsule by mouth daily - digoxin 0.0625 mg by mouth daily - Senna S one tablet by mouth daily - Lasix 20 mg by mouth daily - Synthroid 40 mcg by mouth in the morning - metoprolol 12.5 mg by mouth daily - vitamin KK 100 mcg by mouth daily - potassium chloride 20 mEq by mouth daily - Zantac 150 mg by mouth twice a day - vitamin D 2000 units by mouth daily - Coumadin 2.5 mg by mouth at night PHYSICAL EXAMINATION: GENERAL: The patient is comfortable, in no acute distress. Mild cough. HEENT: Normocephalic, atraumatic. PULMONARY: Mild rhonchi bilaterally. No wheeze. CARDIAC: Irregular. No tachycardia. S1, S2. ABDOMEN: Soft, nontender. Positive bowel sounds. EXTREMITIES: No edema in bilateral lower extremities. VITAL SIGNS: Temperature 96.4, respirations 18, pulse 86, blood pressure 124/72, pulse oximetry 100% on room air. LABORATORY DATA: WBC 3, hemoglobin and hematocrit 12/36.5, platelets 102. Chemistry: Sodium 139, potassium 4.2, chloride 100, bicarbonate 30, BUN 29, creatinine 1.04, cardiac enzymes times one. C-reactive protein 1.09. BNP 222. ASSESSMENT AND PLAN: This is an 85-year-old female patient with underlying medical history of chronic obstructive pulmonary disease (COPD), coronary artery disease, atrial fibrillation, hypertension, hypothyroidism, pulmonary hypertension, chronic kidney disease, history of congestive heart failure (CHF), admitted for community-acquired bacterial pneumonia. 1. Coughing, likely secondary to community acquired bacterial pneumonia versus bronchitis. Influenza negative. Followup blood cultures, sputum culture, respiratory panel. Empirically started on Rocephin and Zithromax. X-ray appreciated. Followup cultures. Nebulizer treatments. Tessalon Perles, Mucinex, Acapella. 2. Acute COPD exacerbation, likely secondary to respiratory infection. Continue antibiotic as above. Followup cultures and respiratory panel. Possible viral infection given neutrophil is not elevated on complete blood count (CBC), prednisone, nebulizer treatments. Advair added. 3. History of atrial fibrillation. We will obtain an EKG. Cardiac enzymes negative. The patient denies any chest pain. The patient's INR is subtherapeutic. Coumadin dosage has been adjusted. Continue digoxin and beta cristopher. We will monitor. 4. Coronary artery disease. Continue aspirin and statin. Continue beta blockers. Monitor blood pressure. 5. Congestive heart failure (CHF) with systolic and diastolic dysfunction. Continue Lasix, strict input and output. Continue beta blockers and aspirin. The patient is also on Coumadin. 6. Hypertension. Continue home medications. Monitor blood pressure. 7. Hypothyroidism. Continue Synthroid. 8. Deep vein thrombosis (DVT) prophylaxis. Heparin subcutaneously until INR is therapeutic. Physical therapy (PT) ordered. DISPOSITION PLANNING: Pending clinical improvement. The patient is admitted under observation, likely discharge over the next 24 to 48 hours.
[2016-11-27 23:26] VITALS: BP 110/80
[2016-11-28] MEDS: ATORVASTATIN 20 MG TAB PO SCH ×2 (00:38→21:49)
[2016-11-28] MEDS: FAMOTIDINE 20 MG TAB PO SCH ×3 (00:38→21:49)
[2016-11-28] MEDS: guaiFENesin ER 600 MG TAB PO SCH ×3 (00:38→21:49)
[2016-11-28] MEDS: WARFARIN SOD 3 MG TAB PO SCH ×2 (00:38→18:25)
[2016-11-28] MEDS: HEPARIN SOD (PORCINE) 5000 UNITS/ML VIAL SC SCH ×3 (00:38→21:49)
[2016-11-28] MEDS: AZITHROMYCIN INJ 500 MG, VIAL MATE ADAPTER 1 EACH in D5W 250 ML IV SCH ×2 (00:39→23:17)
[2016-11-28] MEDS: SENOKOT S TAB PO SCH ×3 (00:39→21:49)
[2016-11-28] MEDS: cefTRIAXone SOD 2 GM in D5W MINI-BAG PLUS 50 ML IV SCH ×2 (00:40→23:17)
[2016-11-28] MEDS: IPRATROPIUM 0.5MG/ALBUTEROL 2.5MG INH SOL UD 3ML (DUONEB)(J7620) NEB SCH ×4 (01:50→20:00)
[2016-11-28] MEDS: LEVOTHYROXINE 0.05 MG TAB (50 MCG) PO SCH (05:49)
[2016-11-28 06:00] VITALS: BP 105/78
[2016-11-28 06:25] LABS: MEAN CORPUSCULAR HEMOGLOBIN 30.6 pg (27.0-33.0); MEAN CORPUSCULAR HGB CONC 32.3 g/dl (32.0-36.5); MEAN CORPUSCULAR VOLUME 94.7 fl (80.0-96.0); RED CELL DISTRIBUTION WIDTH 12.2 % (11.5-14.5); WHITE BLOOD COUNT 1.6 K/mm3 (4.0-10.0)
[2016-11-28 06:30] LABS: INR 1.56
[2016-11-28 06:39] LABS: CALCIUM LEVEL 8.5 MG/DL (8.8-10.2); CREATININE FOR GFR 1.12 MG/DL (0.55-1.02); GLOMERULAR FILTRATION RATE 49.1 (>32); MAGNESIUM LEVEL 2.1 MG/DL (1.8-2.4); POTASSIUM SERUM 3.8 MEQ/L (3.5-5.1)
[2016-11-28] MEDS: ADVAIR DISKUS 250/50 INH PWD INH SCH ×2 (08:44→20:22)
[2016-11-28] MEDS ORDERED: PANTOPRAZOLE 40MG TAB (PROTONIX) PO SCH (09:00)
--- NOTE | 2016-11-28 09:00 | ECGEPIP ---
Stationary ECG Study [facility] - ED Test Date: 2016-11-27 Pat Name: MAGED LATIF Department: Room: [place] [address] Gender: F Assistant Engineer: johnny : 1930 Requested By: Michael Crouch Order Number: [id number] Reading MD: Radha Torres Measurements Intervals [place] Rate: 109 P: NH: 0 QRS: 64 QRSD: 76 T: -38 QT: 329 QTc: 445 Interpretive Statements ATRIAL FIBRILLATION WITH RAPID VENTRICULAR RESPONSE LOW QRS VOLTAGE IN EXTREMITY LEADS NONSPECIFIC ST & T-WAVE ABNORMALITY INCREASED RATE 01/08/16 Electronically Signed On 11-28-2016 9:00:20 EST by Radha Torres
[2016-11-28] MEDS: ASPIRIN 81 MG ENTERIC TAB PO SCH (10:46)
[2016-11-28] MEDS: VITAMIN D 1,000 INTERNATIONAL UNITS TABLET PO SCH (10:47)
[2016-11-28] MEDS: POTASSIUM CHLORIDE 10 MEQ SR TABLET PO SCH (10:48)
[2016-11-28] MEDS: predniSONE 20 MG TAB PO SCH (10:48)
[2016-11-28] MEDS: METOPROLOL TART 25 MG TABLET PO SCH (10:50)
[2016-11-28] MEDS: DIGOXIN 0.125 MG TAB PO SCH (10:51)
[2016-11-28] MEDS: FUROSEMIDE 20 MG TAB PO SCH (10:52)
--- NOTE | 2016-11-28 13:34 | IPN ---
DATE: 11/28/2016 Ms. Falk is feeling well today. She has been up and walking around. She is still somewhat short of breath and is complaining of cough. Temperature 97.4, pulse 89, respiratory rate 18, blood pressure 105/78 and she is 100% on room air. Ins and outs notable for a positive fluid balance of 240. No bowel movements noted today. Weight is 42.5 kg. She is awake, appropriately interactive, pleasantly conversant. Breathing is symmetrica. I:E ratio is 1:3. Diminished throughout. No wheezes, rales or rhonchi. Heart is Distant sounding normal s1 s2. Abdomen soft, doughy and nontender. White cell count 1.6, hemoglobin 11.3 and platelets of 94. INR 1.56. BUN 24 and creatinine 1.12. CK and troponins negative times two. Sputum is pending. Influenza swab is negative. Respiratory panel shows respiratory syncytial virus (RSV). ASSESSMENT: This is an 85-year-old with COPD and likely COPD exacerbation with early pneumonia or acute bronchitis caused by RSV. PLAN: 1. Infectious disease. The patient is started on antibiotics and showing improvement. Continuing with steroids. Acapella device. 2. Patient has history of atrial fibrillation and is on Coumadin. Dose has been adjusted. This will need to be monitored in the setting of the use of antibiotics. 3. Patient has coronary artery disease and is on aspirin and statin. 4. Patient has congestive heart failure, systolic and diastolic dysfunction. 5. Patient has hypothyroidism. 6. Anticipate discharge most likely tomorrow. She is being seen by physical therapy today at the time of my evaluation. ZORAIDA
[2016-11-28 14:00] VITALS: BP 121/80
[2016-11-28 22:00] VITALS: BP 125/65
[2016-11-29] MEDS: IPRATROPIUM 0.5MG/ALBUTEROL 2.5MG INH SOL UD 3ML (DUONEB)(J7620) NEB SCH ×4 (02:51→19:58)
[2016-11-29 06:00] VITALS: BP 108/59
[2016-11-29] MEDS: LEVOTHYROXINE 0.05 MG TAB (50 MCG) PO SCH (06:02)
[2016-11-29 06:06] LABS: MEAN CORPUSCULAR HEMOGLOBIN 31.1 pg (27.0-33.0); MEAN CORPUSCULAR HGB CONC 32.9 g/dl (32.0-36.5); MEAN CORPUSCULAR VOLUME 94.5 fl (80.0-96.0); RED CELL DISTRIBUTION WIDTH 12.6 % (11.5-14.5); WHITE BLOOD COUNT 6.6 K/mm3 (4.0-10.0)
[2016-11-29 06:14] LABS: INR 2.35
[2016-11-29 06:17] LABS: CALCIUM LEVEL 8.7 MG/DL (8.8-10.2); CREATININE FOR GFR 1.11 MG/DL (0.55-1.02); GLOMERULAR FILTRATION RATE 49.6 (>32); POTASSIUM SERUM 3.6 MEQ/L (3.5-5.1)
[2016-11-29] MEDS: ADVAIR DISKUS 250/50 INH PWD INH SCH ×2 (08:36→19:58)
[2016-11-29] MEDS: SENOKOT S TAB PO SCH ×2 (09:00→21:14)
[2016-11-29] MEDS: POTASSIUM CHLORIDE 10 MEQ SR TABLET PO SCH (09:48)
[2016-11-29] MEDS: guaiFENesin ER 600 MG TAB PO SCH ×2 (09:49→21:14)
[2016-11-29] MEDS: ASPIRIN 81 MG ENTERIC TAB PO SCH (09:49)
[2016-11-29] MEDS: FAMOTIDINE 20 MG TAB PO SCH ×2 (09:49→21:14)
[2016-11-29] MEDS: VITAMIN D 1,000 INTERNATIONAL UNITS TABLET PO SCH (09:49)
[2016-11-29] MEDS: predniSONE 20 MG TAB PO SCH (09:49)
[2016-11-29] MEDS: FUROSEMIDE 20 MG TAB PO SCH (09:49)
[2016-11-29] MEDS: DIGOXIN 0.125 MG TAB PO SCH (09:51)
[2016-11-29] MEDS: METOPROLOL TART 25 MG TABLET PO SCH (09:51)
[2016-11-29] MEDS: HEPARIN SOD (PORCINE) 5000 UNITS/ML VIAL SC SCH ×2 (09:52→21:14)
[2016-11-29] MEDS: ACETAMINOPHEN TAB 650MG DOSE (2X325MG) PO PRN ×2 (10:54→18:01)
[2016-11-29] MEDS ORDERED: BENZONATATE 100 MG CAP PO PRN (11:30)
--- NOTE | 2016-11-29 12:23 | IPN ---
DATE: 11/29/2016 Ms. Falk is feeling well today. She is having intermittent fits of cough, but has been up and moving around. She is tolerating a diet. Temperature is 97.7, pulse 95, respiratory rate 18, blood pressure is 108/59, 93% on room air. Intake and output notable for a positive fluid balance of 180. One bowel movement noted yesterday. She is awake, appropriately interactive, and pleasantly conversant. Breathing is symmetrical, diminished throughout. She does have a fit of coughing while I am in the room and this appears to be nonproductive. Heart is distant sounding. Normal S1 and S2. Abdomen is soft, doughy, nontender. White cell count 6.6, hemoglobin 10.1, hemoglobin 10.1, platelets of 105. INR is 2.35, BUN 27, creatinine 1.1. My assessment is as follows: This is an 85-year-old with chronic obstructive pulmonary disease (COPD) and COPD exacerbation with early pneumonia and/or acute bronchitis caused by respiratory syncytial virus (RSV). Plan is as follows: 1. Infectious disease. The patient is on antibiotics. Continues to show improvement. Continuing with antibiotics for possibly secondary bacterial infection. Will continue to wean steroids, use Acapella device. 2. The patient has a history of atrial fibrillation and is on Coumadin. INR is therapeutic. Will continue to monitor in the setting of antibiotic use. 3. The patient has coronary artery disease. On aspirin and statin. 4. The patient has congestive heart failure (CHF) with systolic and diastolic dysfunction, which appear to be compensated. 5. The patient has hypothyroidism. 6. The patient has been picked up by physical therapy and will be seen tomorrow. I anticipate a 75% chance of discharge tomorrow.
[2016-11-29 14:00] VITALS: BP 132/64
[2016-11-29] MEDS: WARFARIN SOD 3 MG TAB PO SCH (18:00)
[2016-11-29] MEDS: ATORVASTATIN 20 MG TAB PO SCH (21:14)
[2016-11-29 22:00] VITALS: BP 143/69
[2016-11-29] MEDS: AZITHROMYCIN INJ 500 MG, VIAL MATE ADAPTER 1 EACH in D5W 250 ML IV SCH (23:26)
[2016-11-30] MEDS: cefTRIAXone SOD 2 GM in D5W MINI-BAG PLUS 50 ML IV SCH (00:04)
--- NOTE | 2016-11-30 00:21 | EDDOCDS ---
Physician Documentation [facility] Name: Anitra Falk Age: 85 yrs Sex: Female : 1930 Arrival Date: 11/27/2016 Time: 16:51 Bed 13 Private MD: Isidro Ryan Disposition: 11/27/16 21:07 Hospitalization ordered by Roya Morrow for Inpatient Admission. Preliminary diagnosis is Chronic obstructive pulmonary disease with (acute) exacerbation. - Bed requested for 4 [place]. - Status is Inpatient Admission. mgs - Condition is Stable. - Problem is chronic. - Symptoms have improved. HPI: 11/27 18:08 This 85 yrs old Female presents to ER via Wheelchair with complaints of Cough.pc 18:08 The history is obtained from the patient, the patient's family/friend. The patient pc presents with shortness of breath, with a prior history of COPD. The symptoms began gradually 8 days ago. The symptoms are continuous, and are unchanged since they started. There were circumstances that led to the current symptoms, including; a recent upper respiratory illness. The patient has shortness of breath at rest. At their worst, the symptoms were moderate. In the emergency department, the symptoms are mild. The patient's shortness of breath is aggravated by coughing, is alleviated by nothing. The patient's dyspnea was accompanied with chills, cough, productive, of yellow sputum. The patient's known risk factors for coronary artery disease include:. The patient has experienced similar episodes in the past, chronically. The patient has been recently seen at an urgent care, twice in the past week and was started on Augmentin and then given Tessalon Perles, without any effective change in symptoms or any relief. She did not have any testing or imaging at either visit. She has COPD, no longer uses her Oxygen, does use her MDIs. Historical: - Allergies: unknown eye drop (Dystonic reaction); - Home Meds: 1. aspirin 81 mg Oral tab 1 tab once daily 2. atorvastatin 20 mg oral tab 1 tab once daily 3. cod liver oil oral daily 4. digoxin 125 mcg oral tab 0.5 tab once daily 5. potassium chloride 10 mEq Oral TbER 2 tabs once daily 6. Metoprolol Tartrate Oral 12.5 mg once daily 7. vitamin K 100 mcg daily 8. Vitamin D Oral 2000 unit daily 9. furosemide 20 mg Oral tab 1 tab once daily 10. ranitidine HCl 150 mg Oral cap 1 cap 2 times per day 11. warfarin 2.5 mg Oral tab 1 tab once daily 12. ProAir HFA 90 mcg/actuation inhalation HFAA 2 puffs as needed 13. levothyroxine 75 mcg oral cap once daily 14. Colace 100 mg oral cap 1 cap once daily 15. Senna-S 8.6-50 mg oral tab once daily 16. amoxicillin-pot clavulanate 875-125 mg Oral tab 1 tab every 12 hours 17. benzonatate 100 mg oral cap 1 cap 3 times per day - PMHx: Atrial Fib; COPD; Hypertension; Hypothyroidism; Pancreatitis; - PSHx: Pacemaker Insertion; Appendectomy; wirst surgery, bilateral; Stents, Coronary; left knee replacement; - The history from nurses notes was reviewed: and I agree with what is documented. - Social history: Smoking status: Patient states was never smoker of tobacco. No barriers to communication noted, The patient speaks fluent British. - : The pt / caregiver states he / she is on anticoagulants: coumadin. Home medication list is obtained from the patient. - Hospitalizations: : No recent hospitalization is reported. - Exposure Risk Screening:: None identified. - Immunization history:: All immunizations up-to-date. - Family history: Not pertinent. - Social history:: the patient is a former smoker, the patient does not drink alcohol. ROS: 18:08 All systems are negative except as listed. The gastrointestinal and genitourinary pc components are also addressed in the HPI. Exam: 18:08 General Appearance: alert, the patient is in mild distress. pc 18:08 EENT: normal eye inspection, ears, nose and throat normal, pharynx normal, mucous membranes moist 18:08 Neck: normal inspection. 18:08 Respiratory: no respiratory distress, no pleuritic chest pain, speaks in full sentences, auscultation reveals wheezes, diffusely, decreased air entry noted left posterior lower lobe and right posterior lower lobe. 18:08 Cardiovascular: no jugular venous distension appreciated, no murmurs, no gallop, no friction rub, the heart rate is tachycardic, at 104 bpm, the rhythm is irregularly irregular 18:08 Abdomen: non-tender, non-distended, no organomegaly. 18:08 Skin: normal color, warm, dry. 18:08 Extremities: non-tender, normal range of motion of all joints. 18:08 Neuro: alert, oriented to person, place and time, cranial nerves normal as tested, no motor deficits, no sensory deficits. 18:08 Psych: normal mood. Vital Signs: 16:54 BP 106 / 59 RA Sitting (auto/reg); Pulse 104; Resp 18; Temp 96.4(T); Pulse Ox 98% on rs6 R/A; Weight 42.64 kg / 94.01 lbs (R); Height 4 ft. 11 in. (149.86 cm) (R); 18:14 BP 124 / 72 (auto/); rs3 18:15 Pulse 86 MON; Pulse Ox 100% ; rs3 18:25 Pulse 84 MON; Pulse Ox 100% ; rs3 18:59 BP 134 / 64 (auto/); mgs 18:59 Pulse 114 MON; Pulse Ox 95% ; mgs 19:14 BP 130 / 62 (auto/); mgs 19:14 Pulse 118 MON; Pulse Ox 98% ; mgs 19:44 BP 134 / 69 (auto/); mgs 19:44 Pulse 124 MON; Pulse Ox 94% ; mgs 19:59 BP 114 / 57 (auto/); mgs 19:59 Pulse 116 MON; Pulse Ox 91% ; mgs 20:14 BP 130 / 71 (auto/); mgs 20:14 Pulse 110 MON; Pulse Ox 91% ; mgs 20:29 Pulse 110 MON; mgs 20:29 BP 124 / 71 (auto/); mgs 20:44 BP 117 / 63 (auto/); mgs 20:44 Pulse 102 MON; mgs 20:59 BP 118 / 65 (auto/); mgs 20:59 Pulse 100 MON; mgs 21:14 BP 124 / 71 (auto/); mgs 21:14 Pulse 98 MON; mgs 21:29 BP 122 / 73 (auto/); mgs 21:29 Pulse 102 MON; mgs 21:44 BP 122 / 71 (auto/); mgs 21:44 Pulse 106 MON; mgs 21:59 BP 119 / 70 (auto/); mgs 21:59 Pulse 100 MON; mgs 22:10 Pain 6/10; mgs 22:14 BP 122 / 65 (auto/); mgs 22:14 Pulse 108 MON; mgs 22:29 BP 119 / 62 (auto/); mgs 22:29 Pulse 102 MON; mgs 22:34 BP 114 / 63 (auto/); mgs 22:34 Pulse 100 MON; mgs 22:37 BP 114 / 63 LA Sitting (auto/reg); Pulse 100 MON; Resp 20 S; Temp 98.8(TE); Pulse Ox cln 94% on R/A; Pain 3/10; 22:44 BP 116 / 67 (auto/); mgs 22:44 Pulse 98 MON; Pulse Ox 91% ; mgs 22:59 BP 117 / 65 (auto/); mgs 22:59 Pulse 94 MON; Pulse Ox 90% ; mgs 23:14 BP 115 / 66 (auto/); mgs 23:14 Pulse 94 MON; Pulse Ox 90% ; mgs 16:54 Body Mass Index 18.99 (42.64 kg, 149.86 cm) rs6 MDM: 17:59 Obtain sample by nasopharyngeal swab ordered. pc 17:59 Solu-MEDROL 125 mg IVP once ordered. pc 17:59 -Blood Culture (Adults Only), peripheral from different site, or from device/port/PICC pc etc. if present ordered. 17:59 Grade Setter/Pulse Ox/q 15 min VS ordered. pc 17:59 IV Saline Lock ordered. pc 17:59 Rhythm Strip to chart ordered. pc 17:59 Albuterol-Ipratropium 1 neb Nebulizer every 20 minutes x3 ordered. pc 18:00 B-Type Natiuretic Peptide Ordered. EDMS 18:00 Basic Metabolic Profile Ordered. EDMS 18:00 CBC with Diff Ordered. EDMS 18:00 Cardiac Injury Profile Ordered. EDMS 18:00 Troponin Ordered. EDMS 18:00 Digoxin Level Ordered. EDMS 18:00 INR Ordered. EDMS 18:00 -Influenza A&B Rapid Antigen - Nose Ordered. EDMS 18:00 -Blood Culture Ordered. EDMS 18:01 Chest, 1 View Ordered. EDMS 18:01 ECG WITH READING ER PHYS+CARDIAG ordered. EDMS 18:06 -Blood Culture (Adults Only), peripheral from different site, or from device/port/PICC lbd etc. if present complete. 18:08 Differential diagnosis: CHF, Chronic Obstructive Pulmonary Disease pneumonia, pc Influenza. Plan: labs, nebs, CXR, EKG. 18:10 BLOOD CULTURES Ordered. EDMS 19:04 Dexamethasone 10 mg IV at bolus once ordered. cs11 19:05 Sputum Culture & Gram Stain Ordered. EDMS 19:47 B-Type Natiuretic Peptide Reviewed. cs11 19:47 Basic Metabolic Profile Reviewed. cs11 19:47 CBC with Diff Reviewed. cs11 19:47 INR Reviewed. cs11 19:47 -Influenza A&B Rapid Antigen - Nose Reviewed. cs11 19:47 Cardiac Injury Profile Reviewed. cs11 19:47 Troponin Reviewed. cs11 19:47 Digoxin Level Reviewed. cs11 19:47 Chest, 1 View Reviewed. cs11 20:13 Acetaminophen Tablet 650 mg PO once ordered. cs11 20:38 [facility] Payment Agreement was scanned into [employer]. and attached to record. jp5 20:39 Financial registration complete. jp5 20:55 BED REQUEST+ADM ordered. EDMS 20:59 Chest, 1 View Reviewed. cs11 21:03 Call Respiratory ordered. cs11 21:04 -Arterial Blood Gas Ordered. EDMS 21:12 Call Respiratory complete. mgs 21:28 CARDIAC MARKER PANEL Ordered. EDMS 21:28 PROTHROMBIN TIME PROFILE\E\INR Ordered. EDMS 21:28 C REACTIVE PROTEIN QUANTITATIV Ordered. EDMS 21:29 COMPLETE BLOOD COUNT Ordered. EDMS 21:29 BASIC METABOLIC PROFILE Ordered. EDMS 21:29 MAGNESIUM LEVEL Ordered. EDMS 21:29 RESPIRATORY PANEL Ordered. EDMS 21:31 PHYSICAL THERAPY EVAL & TREAT ordered. EDMS 21:32 Admission / Observation Status ordered. EDMS 21:32 ELECTROCARDIOGRAM ADULT ordered. EDMS 21:32 LOW FAT LOW CHOLESTEROL DIET ordered. EDMS 02/04 16:18 ECG/EKG was scanned into [employer]. and attached to record. kf3 Administered Medications: 03 18:05 Drug: Albuterol-Ipratropium 1 neb [ipratropium-albuterol 0.5 mg-3 mg(2.5 mg base)/3 mL cs15 nebulization soln (1 neb)] Route: Nebulizer; 18:24 Drug: Solu-MEDROL 125 mg [Solu-Medrol 500 mg intravenous solution (125 mg)] Route: IVP; rs3 Site: right antecubital; 18:27 Drug: Albuterol-Ipratropium 1 neb [ipratropium-albuterol 0.5 mg-3 mg(2.5 mg base)/3 mL cs15 nebulization soln (1 neb)] Route: Nebulizer; 18:31 Drug: Albuterol-Ipratropium 1 neb [ipratropium-albuterol 0.5 mg-3 mg(2.5 mg base)/3 mL cs15 nebulization soln (1 neb)] Route: Nebulizer; 19:15 Drug: Dexamethasone 10 mg [dexamethasone 4 mg/mL injection solution] Route: IV; Rate: mgs bolus; Site: right antecubital; 21:12 Drug: Acetaminophen 650 mg [acetaminophen 325 mg tablet (2 tabs)] Route: PO; mgs 22:10 Follow up: Pain 04/03 Adult; Response: Pain is decreased mgs Signatures: Dispatcher [employer] EDMS Michael Tejada MD MD pc Daly, Linda, [employer] lbd [place], Reg Reg kf3 Tasha Goeva RN RN Jareth Heck, DO cs11 Berto Tavares,RN RN mgs Yusuf Dumont jp5 Herbert Abdul RN RN sa Soosairaj, Rosemary RN rs3 Angel Brambila RT cs15 The chart was reviewed and I authenticate all verbal orders and agree with the evaluation and treatment provided.Corrections: (The following items were deleted from the chart) 21:37 21:28 C REACTIVE PROTEIN QUANTITATIV ordered. EDMS EDMS Attachments: 20:38 [facility] [place] Agreement jp5 11/28 16:18 ECG/EKG kf3 [facility]
--- NOTE | 2016-11-30 00:22 | EDDOCDS ---
Nurse's Notes [facility] Name: Anitra Falk Age: 85 yrs Sex: Female : 1930 Arrival Date: 11/27/2016 Time: 16:51 Bed 13 Private MD: Isidro Ryan Diagnosis: Chronic obstructive pulmonary disease with (acute) exacerbation Presentation: 11/27 16:59 Presenting complaint: daughter states seen one week ago at urgent care and told URI jjr given antibiotic, seen again this past Wednesday and given cough suppressant pt presents with no improvement in cough now c/o RAVI chest ache and decreased appetite. Adult Sepsis Screening: The patient does not have new or worsening altered mentation. Patient's respiratory rate is less than 22. Systolic blood pressure is greater than 100. Patient has a qSOFA score of 0- Negative Sepsis Screen. Suicide/Homicide risk assessment- the patient denies having any suicidal and/or homicidal ideations and does not present with any other emotional, behavioral or mental health complaints. 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 Transition of care: patient was not received from another setting of care. 16:59 Acuity: TEJAL Level 3 jjr 16:59 Method Of Arrival: Wheelchair jjr Triage Assessment: 17:05 General: Appears in no apparent distress, Behavior is appropriate for age. Pain: jjr Location: chest and head. Respiratory: Airway is patent Respiratory effort is even, unlabored, Respiratory pattern is regular. Derm: No deficits noted. Historical: - Allergies: unknown eye drop (Dystonic reaction); - Home Meds: 1. aspirin 81 mg Oral tab 1 tab once daily 2. atorvastatin 20 mg oral tab 1 tab once daily 3. cod liver oil oral daily 4. digoxin 125 mcg oral tab 0.5 tab once daily 5. potassium chloride 10 mEq Oral TbER 2 tabs once daily 6. Metoprolol Tartrate Oral 12.5 mg once daily 7. vitamin K 100 mcg daily 8. Vitamin D Oral 2000 unit daily 9. furosemide 20 mg Oral tab 1 tab once daily 10. ranitidine HCl 150 mg Oral cap 1 cap 2 times per day 11. warfarin 2.5 mg Oral tab 1 tab once daily 12. ProAir HFA 90 mcg/actuation inhalation HFAA 2 puffs as needed 13. levothyroxine 75 mcg oral cap once daily 14. Colace 100 mg oral cap 1 cap once daily 15. Senna-S 8.6-50 mg oral tab once daily 16. amoxicillin-pot clavulanate 875-125 mg Oral tab 1 tab every 12 hours 17. benzonatate 100 mg oral cap 1 cap 3 times per day - PMHx: Atrial Fib; COPD; Hypertension; Hypothyroidism; Pancreatitis; - PSHx: Pacemaker Insertion; Appendectomy; wirst surgery, bilateral; Stents, Coronary; left knee replacement; - The history from nurses notes was reviewed: and I agree with what is documented. - Social history: Smoking status: Patient states was never smoker of tobacco. No barriers to communication noted, The patient speaks fluent Armenian. - : The pt / caregiver states he / she is on anticoagulants: coumadin. Home medication list is obtained from the patient. - Hospitalizations: : No recent hospitalization is reported. - Exposure Risk Screening:: None identified. - Immunization history:: All immunizations up-to-date. - Family history: Not pertinent. - Social history:: the patient is a former smoker, the patient does not drink alcohol. Screenin:35 Screening information is obtained from the patient. Fall risk: At risk due to age, gait mgs disturbance. Assistance ADL's: requires no assistance with activities of daily living. Abuse/DV Screen: The patient / caregiver reports he/she is: not in a situation that causes fear, pain or injury. Nutritional screening: No deficits noted. Advance Directives: Currently, there is a health care proxy, ABUNDIO BAUTISTA, DAUGHTER. home support is adequate. Assessment: 17:42 General: Appears in no apparent distress, Behavior is appropriate for age, cooperative. rs3 Pain: Location: headache and chest pressure. Neurological: Level of Consciousness is awake, alert, Oriented to person, place, time, Decorating Equipment Setter are equal bilaterally. Cardiovascular: Capillary refill < 3 seconds Heart tones S1 S2 present. Respiratory: Airway is patent Respiratory effort is even, unlabored, Breath sounds are coarse bilaterally. Derm: Skin is pink, warm & dry. 18:25 General: Appears in no apparent distress, Behavior is appropriate for age, cooperative, rs3 getting respiratory treatment. states has helped with relieving chest pressure/headache slightly. instructed to obtain sputum for culture. family at bedside. breathes easy. denies of acute distress. 19:16 Adult Sepsis Screening: The patient does not have new or worsening altered mentation. mgs Patient has a respiratory rate of greater than or equal to 22 (1 point). Systolic blood pressure is greater than 100. Patient has a qSOFA score of 1- Negative Sepsis Screen. General: Appears in no apparent distress, Behavior is appropriate for age, cooperative. Neurological: Level of Consciousness is awake, alert, Oriented to person, place, time. Cardiovascular: Capillary refill < 3 seconds. Respiratory: Airway is patent Respiratory effort is even, unlabored. Derm: Skin is pink, warm & dry. 20:08 General: Appears in no apparent distress, Behavior is appropriate for age, cooperative. mgs Pain: Location: HEAD Pain currently is 9 out of 10 on a pain scale. Quality of pain is described as aching. Neurological: Level of Consciousness is awake, alert, Oriented to person, place, time. Cardiovascular: Capillary refill < 3 seconds. Respiratory: Airway is patent Respiratory effort is even, unlabored, Respiratory pattern is regular, symmetrical. Derm: Skin is pink, warm & dry. 21:13 General: Appears in no apparent distress, Behavior is appropriate for age, cooperative. mgs Neurological: Level of Consciousness is awake, alert, Oriented to person, place, time. Cardiovascular: Capillary refill < 3 seconds. Respiratory: Airway is patent Respiratory effort is even, unlabored, Respiratory pattern is regular, symmetrical. Derm: Skin is pink, warm & dry. 22:11 General: Appears in no apparent distress, Behavior is appropriate for age, cooperative. mgs Neurological: Level of Consciousness is awake, alert, Oriented to person, place, time. Cardiovascular: Capillary refill < 3 seconds. Respiratory: Airway is patent Respiratory effort is even, unlabored, Respiratory pattern is regular, symmetrical. Derm: Skin is pink, warm & dry. 22:39 Adult Sepsis Screening: The patient does not have new or worsening altered mentation. mgs Patient's respiratory rate is less than 22. Systolic blood pressure is greater than 100. Patient has a qSOFA score of 0- Negative Sepsis Screen. General: Appears in no apparent distress, Behavior is appropriate for age, cooperative. Neurological: Level of Consciousness is awake, alert, Oriented to person, place, time. Cardiovascular: Capillary refill < 3 seconds. Respiratory: Airway is patent Respiratory effort is even, unlabored, Respiratory pattern is regular, symmetrical. Derm: Skin is pink, warm & dry. 23:17 General: Appears in no apparent distress, Behavior is appropriate for age, cooperative. mgs Neurological: Level of Consciousness is awake, alert, Oriented to person, place, time. Cardiovascular: Capillary refill < 3 seconds. Respiratory: Airway is patent Respiratory effort is even, unlabored, Respiratory pattern is regular, symmetrical. Derm: Skin is pink, warm & dry. Vital Signs: 16:54 BP 106 / 59 RA Sitting (auto/reg); Pulse 104; Resp 18; Temp 96.4(T); Pulse Ox 98% on rs6 R/A; Weight 42.64 kg (R); Height 4 ft. 11 in. (149.86 cm) (R); 18:14 BP 124 / 72 (auto/); rs3 18:15 Pulse 86 MON; Pulse Ox 100% ; rs3 18:25 Pulse 84 MON; Pulse Ox 100% ; rs3 18:59 BP 134 / 64 (auto/); mgs 18:59 Pulse 114 MON; Pulse Ox 95% ; mgs 19:14 BP 130 / 62 (auto/); mgs 19:14 Pulse 118 MON; Pulse Ox 98% ; mgs 19:44 BP 134 / 69 (auto/); mgs 19:44 Pulse 124 MON; Pulse Ox 94% ; mgs 19:59 BP 114 / 57 (auto/); mgs 19:59 Pulse 116 MON; Pulse Ox 91% ; mgs 20:14 BP 130 / 71 (auto/); mgs 20:14 Pulse 110 MON; Pulse Ox 91% ; mgs 20:29 Pulse 110 MON; mgs 20:29 BP 124 / 71 (auto/); mgs 20:44 BP 117 / 63 (auto/); mgs 20:44 Pulse 102 MON; mgs 20:59 BP 118 / 65 (auto/); mgs 20:59 Pulse 100 MON; mgs 21:14 BP 124 / 71 (auto/); mgs 21:14 Pulse 98 MON; mgs 21:29 BP 122 / 73 (auto/); mgs 21:29 Pulse 102 MON; mgs 21:44 BP 122 / 71 (auto/); mgs 21:44 Pulse 106 MON; mgs 21:59 BP 119 / 70 (auto/); mgs 21:59 Pulse 100 MON; mgs 22:10 Pain 6/10; mgs 22:14 BP 122 / 65 (auto/); mgs 22:14 Pulse 108 MON; mgs 22:29 BP 119 / 62 (auto/); mgs 22:29 Pulse 102 MON; mgs 22:34 BP 114 / 63 (auto/); mgs 22:34 Pulse 100 MON; mgs 22:37 BP 114 / 63 LA Sitting (auto/reg); Pulse 100 MON; Resp 20 S; Temp 98.8(TE); Pulse Ox cln 94% on R/A; Pain 3/10; 22:44 BP 116 / 67 (auto/); mgs 22:44 Pulse 98 MON; Pulse Ox 91% ; mgs 22:59 BP 117 / 65 (auto/); mgs 22:59 Pulse 94 MON; Pulse Ox 90% ; mgs 23:14 BP 115 / 66 (auto/); mgs 23:14 Pulse 94 MON; Pulse Ox 90% ; mgs 16:54 Body Mass Index 18.99 (42.64 kg, 149.86 cm) [facility] Vitals: 16:54 Log In Time: November 27, 2016 at 16:54. 6 ED Course: 16:54 Patient visited by Randi Lacy PCA. rs6 16:54 Isidro Ryan MD is Private Physician. rs6 16:54 Patient moved to Waiting rs6 16:56 Patient visited by Randi Lacy PCA. rs6 16:56 Patient moved to Pre RCE rs6 17:00 Triage Initiated jjr 17:05 Analy Koenig,RN is Primary Nurse. jjr 17:05 Patient moved to 13 jjr 17:35 Michael Tejada MD is Attending Physician. pc 17:42 Patient visited by Analy Koenig,JORGITO. rs3 17:59 Patient visited by Michael Tejada MD. pc 18:24 BLOOD CULTURES Sent. rs3 18:24 -Blood Culture Sent. rs3 18:24 INR Sent. rs3 18:24 Digoxin Level Sent. rs3 18:24 B-Type Natiuretic Peptide Sent. rs3 18:24 Basic Metabolic Profile Sent. rs3 18:24 CBC with Diff Sent. rs3 18:24 Cardiac Injury Profile Sent. rs3 18:24 Troponin Sent. rs3 18:24 -Influenza A&B Rapid Antigen - Nose Sent. rs3 18:47 Patient visited by Radha cMdonald. sew 18:47 EKG done. (by ED staff). Reviewed by Michael Tejada MD. sew 19:01 Attending Physician role handed off by Michael Tejada MD cs11 19:01 Jareth Zamora DO is Attending Physician. cs11 19:16 Sputum Culture & Gram Stain Sent. mgs 19:22 Patient visited by Berto Tavares,JORGITO. mgs 19:41 Chest, 1 View Returned. EDMS 20:08 Patient visited by Berto Tavares RN. mgs 20:33 Chest, 1 View Returned. EDMS 20:38 [facility] Payment Agreement was scanned into [employer] and attached to record. jp5 21:07 Roya Morrow is Hospitalizing Provider. cs11 21:15 Patient visited by Berto Tavares RN. mgs 21:51 -Arterial Blood Gas Sent. nk1 22:12 Patient visited by Berto Tavares RN. mgs 22:36 The patient / caregiver is instructed regarding the plan of care and ED course. mgs 22:36 Inserted saline lock: 20 gauge in right antecubital area. mgs 22:36 No procedures done that require assistance. mgs 22:38 Patient visited by Sakina Omer PCA. cln [id number] 16:18 ECG/EKG was scanned into [employer] and attached to record. kf3 Administered Medications: 11/27 18:05 Drug: Albuterol-Ipratropium 1 neb [ipratropium-albuterol 0.5 mg-3 mg(2.5 mg base)/3 mL cs15 nebulization soln (1 neb)] Route: Nebulizer; 18:24 Drug: Solu-MEDROL 125 mg [Solu-Medrol 500 mg intravenous solution (125 mg)] Route: IVP; rs3 Site: right antecubital; 18:27 Drug: Albuterol-Ipratropium 1 neb [ipratropium-albuterol 0.5 mg-3 mg(2.5 mg base)/3 mL cs15 nebulization soln (1 neb)] Route: Nebulizer; 18:31 Drug: Albuterol-Ipratropium 1 neb [ipratropium-albuterol 0.5 mg-3 mg(2.5 mg base)/3 mL cs15 nebulization soln (1 neb)] Route: Nebulizer; 19:15 Drug: Dexamethasone 10 mg [dexamethasone 4 mg/mL injection solution] Route: IV; Rate: mgs bolus; Site: right antecubital; 21:12 Drug: Acetaminophen 650 mg [acetaminophen 325 mg tablet (2 tabs)] Route: PO; mgs 22:10 Follow up: Pain 04/03 Adult; Response: Pain is decreased mgs RT: 18:12 Initial Med Neb Given as ordered. Respiratory: Respiratory effort is unlabored, cs15 Respiratory pattern is Pt has extended expiration time suggesting emphysema. Breath sounds with crackles in left posterior lower lobe and right posterior lower lobe Reports that she does not take anything for breathing at home but wears o2 as needed. 18:31 Respiratory: Breath sounds with crackles bilaterally. in left posterior upper lobe, cs15 right posterior upper lobe, left posterior lower lobe, right posterior middle lobe and right posterior lower lobe. 21:51 ABG's drawn from right radial artery pressure held for 5 minutes no bleeding noted nk1 pressure bandage applied specimen sent pt. tolerated well. Order Results: Lab Order: -Influenza A&B Rapid Antigen - Nose; SPEC'M 11/27/16 18:10 Test: INFLUENZA A RAPID SCR by ICA; Value: INFLUENZA A RESULTS NEGATIVE; Status: F Test: INFLUENZA A RAPID SCR by ICA; Value: Comments:; Status: F Test: INFLUENZA B RAPID SCR by ICA; Value: INFLUENZA B RESULTS NEGATIVE; Status: F Test Note: ; The Influenza test is a direct rapid immunoassay for the qualitative detection of Influenza viral antigen. Cell culture (Viral Culture) testing should be considered to confirm NEGATIVE results and to assist in detecting other viruses that can provide similar clinical symptoms. Please contact the lab within 24 hours ([phone]) if confirmatory testing is desired. Lab Order: B-Type Natiuretic Peptide; SPEC'M 11/27/16 18:10 Test: BRAIN NATRIURETIC PEPTIDE; Value: 222; Range: <100; Abnormal: Above high normal; Units: PG/ML; Status: F Lab Order: Basic Metabolic Profile; SPEC'M 11/27/16 18:10 Test: GLUCOSE, FASTING; Value: 99; Range: 83-110; Units: MG/DL; Status: F Test: BLOOD UREA NITROGEN; Value: 29; Range: 7-18; Abnormal: Above high normal; Units: MG/DL; Status: F Test: CREATININE FOR GFR; Value: 1.04; Range: 0.55-1.02; Abnormal: Above high normal; Units: MG/DL; Status: F Test: GLOMERULAR FILTRATION RATE; Value: 53.5; Range: >32; Status: F Test: SODIUM LEVEL; Value: 139; Range: 136-145; Units: MEQ/L; Status: F Test: POTASSIUM SERUM; Value: 4.2; Range: 3.5-5.1; Units: MEQ/L; Status: F Test: CHLORIDE LEVEL; Value: 100; Range: 98-107; Units: MEQ/L; Status: F Test: CARBON DIOXIDE LEVEL; Value: 30; Range: 21-32; Units: MEQ/L; Status: F Test: ANION GAP; Value: 9; Range: 8-16; Units: MEQ/L; Status: F Test: CALCIUM LEVEL; Value: 8.3; Range: 8.8-10.2; Abnormal: Below low normal; Units: MG/DL; Status: F Test Note: ; Units are mL/min/1.73 m2 Chronic Kidney Disease Staging per NKF: Stage I & II GFR >=60 Normal to Mildly Decreased Stage III GFR 30-59 Moderately Decreased Stage IV GFR 15-29 Severely Decreased Stage V GFR <15 Very Little GFR Left ESRD GFR <15 on [employer] Lab Order: CBC with Diff; SPEC'M 11/27/16 18:10 Test: WHITE BLOOD COUNT; Value: 3.0; Range: 4.0-10.0; Abnormal: Below low normal; Units: K/mm3; Status: F Test: RED BLOOD COUNT; Value: 3.91; Range: 4.00-5.40; Abnormal: Below low normal; Units: M/mm3; Status: F Test: HEMOGLOBIN; Value: 12.0; Range: 12.0-16.0; Units: g/dl; Status: F Test: HEMATOCRIT; Value: 36.5; Range: 36.0-47.0; Units: %; Status: F Test: MEAN CORPUSCULAR VOLUME; Value: 93.4; Range: 80.0-96.0; Units: fl; Status: F Test: MEAN CORPUSCULAR HEMOGLOBIN; Value: 30.6; Range: 27.0-33.0; Units: pg; Status: F Test: MEAN CORPUSCULAR HGB CONC; Value: 32.8; Range: 32.0-36.5; Units: g/dl; Status: F Test: RED CELL DISTRIBUTION WIDTH; Value: 12.4; Range: 11.5-14.5; Units: %; Status: F Test: PLATELET COUNT, AUTOMATED; Value: 102; Range: 150-450; Abnormal: Below low normal; Units: k/mm3; Status: F Test: NEUTROPHILS %; Value: 34.7; Range: 36.0-66.0; Abnormal: Below low normal; Units: %; Status: F Test: LYMPH %; Value: 43.7; Range: 24.0-44.0; Units: %; Status: F Test: MONO %; Value: 12.2; Range: 0.0-5.0; Abnormal: Above high normal; Units: %; Status: F Test: EOS %; Value: 3.1; Range: 0.0-3.0; Abnormal: Above high normal; Units: %; Status: F Test: BASO %; Value: 1.0; Range: 0.0-1.0; Units: %; Status: F Test: LARGE UNSTAINED CELL %; Value: 5.3; Range: 0.0-4.0; Abnormal: Above high normal; Units: %; Status: F Test: NEUTROPHILS #; Value: 1.0; Range: 1.8-7.7; Abnormal: Below low normal; Units: K/mm3; Status: F Test: LYMPH #; Value: 1.5; Range: 1.5-4.5; Units: K/mm3; Status: F Test: MONO #; Value: 0.4; Range: 0.0-0.8; Units: K/mm3; Status: F Test: EOS #; Value: 0.1; Range: 0.0-0.50; Units: K/mm3; Status: F Test: BASO #; Value: 0.0; Range: 0.0-0.2; Units: K/mm3; Status: F Test: LARGE UNSTAINED CELL #; Value: 0.2; Range: 0.0-0.4; Units: K/mm3; Status: F Lab Order: Cardiac Injury Profile; [facility] 11/27/16 18:10 Test: CPK CREATINE PHOSPHOKINASE; Value: 131; Range: 26-192; Units: U/L; Status: F Test: CK-MB VALUE MASS; Value: 1.7; Range: 0.0-3.6; Units: NG/ML; Status: F Test: MB/CK RELATIVE INDEX; Value: 1.29; Range: < OR =4; Status: F Test Note: ; DIAGNOSIS CRITERIA MMB ng/ml Relative Index (RI) NON-AMI < or = 5 N/A CRUZ ZONE > 5 < or = 4 AMI > 5 > 4 Lab Order: Troponin; [facility] 11/27/16 18:10 Test: TROPONIN I; Value: < 0.02; Range: < 0.10; Units: NG/ML; Status: F Test Note: ; Troponin I Reference Interval for Za[place] LOCI: 99th Percentile= 0.00-0.045 ng/ml Risk Stratification: <= 0.10 ng/ml Decreased Risk for Adverse Clinical Events. 0.10-1.50 ng/ml Increased Risk for Adverse Clinical Events. Evaluation of additional criterion and/or repeat testing in 2-6 hours is suggested to rule out myocardial damage. >= 1.50 ng/ml Indicative of Myocardial Injury. Lab Order: Digoxin Level; [facility] 11/27/16 18:10 Test: DIGOXIN LEVEL; Value: 0.7; Range: 0.5-2.0; Units: NG/ML; Status: F Lab Order: INR; [facility] 11/27/16 18:10 Test: PROTHROMBIN TIME; Value: 17.4; Range: 12.3-14.5; Abnormal: Above high normal; Units: SECONDS; Status: F Test: INR; Value: 1.41; Status: F Test Note: ; THERAPUTIC HUMAN INR VALUES INDICATIONS NORMAL RANGES PROPHYLAXIS/TREATMENT OF: VENOUS THROMBOSIS 2.0-3.0 PULMONARY EMBOLISM 2.0-3.0 PREVENTION OF SYSTEMIC EMBOLISM FROM: TISSUE HEART VALVES 2.0-3.0 ACUTE MYOCARDIAL INFARCTION 2.0-3.0 VALVULAR HEART DISEASE 2.0-3.0 ATRIAL FIBRILLATION 2.0-3.0 MECHANICAL VALVES(HIGH RISK) 2.5-3.5 RECURRENT MYOCARDIAL INFARCTION 2.5-3.5 Lab Order: -Arterial Blood Gas; [facility]' 11/27/16 21:33 Test: ABG pH (ARTERIAL); Value: 7.473; Range: 7.350-7.450; Abnormal: Above high normal; Units: UNITS; Status: F Test: ABG PARTIAL PRESSURE CO2; Value: 36.9; Range: 35.0-45.0; Units: mmHg; Status: F Test: ABG PARTIAL PRESSURE O2; Value: 78.5; Range: 75.0-100.0; Units: mmHg; Status: F Test: ABG TOTAL CO2; Value: 27.6; Range: 23.0-31.0; Units: MEQ/L; Status: F Test: ABG HCO3; Value: 26.4; Range: 22.0-26.0; Abnormal: Above high normal; Units: MEQ/L; Status: F Test: ABG BASE EXCESS; Value: 2.9; Range: -2.0-2.0; Abnormal: Above high normal; Status: F Test: ABG STANDARD HCO3; Value: 27.0; Range: 22.0-26.0; Abnormal: Above high normal; Units: MEQ/L; Status: F Test: ABG O2 SATURATION; Value: 96.0; Range: 95.0-99.0; Units: %; Status: F Test: ABG DEVICE; Value: NASAL FORREST; Status: F Lab Order: RESPIRATORY PANEL; [facility]' 11/27/16 18:06 Test: RESPIRATORY PANEL; Value: RP PANEL RESULT POSITIVE by PCR; Abnormal: Abnormal; Status: F Test: RESPIRATORY PANEL; Value: Comments:; Status: F Test: RESPIRATORY PANEL; Value: ORGANISM 1: RESPIRATORY SYNCYTIAL VIRUS; Status: F Test: RESPIRATORY PANEL; Value: RESPIRATORY SYNCYTIAL VIRUS; Status: F Test: RESPIRATORY PANEL; Value: RSV 1 RSV is the most common cause of severe respiratory; Status: F Test: RESPIRATORY PANEL; Value: RSV 2 disease in infants, with acute bronchiolitis as the; Status: F Test: RESPIRATORY PANEL; Value: RSV 3 major cause of hospitalization. Treatment or; Status: F Test: RESPIRATORY PANEL; Value: RSV 4 prophlaxis with a humanized monoclonal antibody; Status: F Test: RESPIRATORY PANEL; Value: RSV 5 has shown a reduction in disease for high risk infants.; Status: F Test Note: ; This respiratory PCR panel detects Influenza A H1, H3 and 2009 H1 viruses, Influenza B virus, Respiratory syncytial virus, Human metapneumovirus, Parainfluenza virus 1, 2, 3 and 4, Adenovirus, Rhinovirus/Enterovirus, Coronavirus HKU1, NL63, OC43 and 229E, Bordetella pertussis, Mycoplasma pneumoniae and Chlamydia pneumoniae. Lab Order: C REACTIVE PROTEIN QUANTITATIV; SPEC'M 11/27/16 18:10 Test: C REACTIVE PROTEIN QUANTITATIV; Value: 1.09; Range: 0.00-0.30; Abnormal: Above high normal; Units: MG/DL; Status: F Radiology Order: Chest, 1 View Test: Chest, 1 View REASON FOR EXAMINATION: Shortness of Breath; Chest x-ray: Single view:; ; History: Shortness of breath.; ; Findings: Epicardial pacemaker leads are seen. Moderate cardiomegaly is; observed. There is biapical pleuroparenchymal fibrosis again noted fairly; extensively. The lungs overall are hyperinflated. No acute infiltrate is seen.; ; Impression:; ; Cardiomegaly with epicardial pacemaker. Biapical pleuroparenchymal fibrosis. No; new infiltrate.; ; ; Signed by; Chandana Vallejo MD 11/27/2016 07:31 P; Outcome: 21:07 Decision to Hospitalize by Provider. cs11 23:18 Discharge Assessment: Patient awake, alert and oriented x 3. No cognitive and/or mgs functional deficits noted. Patient verbalized understanding of disposition instructions. patient administered narcotics - no. The following High Risk Discharge criteria are identified: None. Admitted to Med/Surg accompanied by nurse, family with patient, via stretcher, with chart. Condition: stable. Property sent home with patient. 23:19 No special radiology studies were completed. mgs 23:20 Patient left the ED. mgs Signatures: Dispatcher [employer] EDMS Michael Tejada MD MD pc Kruger, Nora,RT RT nk1 Costa Barrientos, Reg Reg kf3 Tasha Govea RN RN Analy Bojorquez RN RN rs3 Radha Mcdonald Craig, DO DO cs11 Berto Tavares,RN RN mgs Regino, Randi, NOVELTIES SALES REPRESENTATIVE NOVELTIES SALES REPRESENTATIVE rs6 Yusuf Dumont jp5 Angel Brambila,RT RT cs15 Negra, Sakina, NOVELTIES SALES REPRESENTATIVE NOVELTIES SALES REPRESENTATIVE cln Chart Complete MTDD
[2016-11-30] MEDS: IPRATROPIUM 0.5MG/ALBUTEROL 2.5MG INH SOL UD 3ML (DUONEB)(J7620) NEB SCH ×3 (02:00→14:00)
[2016-11-30] MEDS: LEVOTHYROXINE 0.05 MG TAB (50 MCG) PO SCH (05:42)
[2016-11-30 06:00] VITALS: BP 128/66
[2016-11-30 06:21] LABS: MEAN CORPUSCULAR HEMOGLOBIN 31.2 pg (27.0-33.0); MEAN CORPUSCULAR HGB CONC 33.2 g/dl (32.0-36.5); MEAN CORPUSCULAR VOLUME 93.8 fl (80.0-96.0); RED CELL DISTRIBUTION WIDTH 12.9 % (11.5-14.5); WHITE BLOOD COUNT 5.4 K/mm3 (4.0-10.0)
[2016-11-30 06:28] LABS: INR 4.19
[2016-11-30 06:37] LABS: CALCIUM LEVEL 8.7 MG/DL (8.8-10.2); CREATININE FOR GFR 1.05 MG/DL (0.55-1.02); GLOMERULAR FILTRATION RATE 52.9 (>32); MAGNESIUM LEVEL 2.2 MG/DL (1.8-2.4); POTASSIUM SERUM 4.2 MEQ/L (3.5-5.1)
[2016-11-30] MEDS: ADVAIR DISKUS 250/50 INH PWD INH SCH (08:39)
[2016-11-30] MEDS ORDERED: CEFD1CAP8 PO (09:05)
[2016-11-30] MEDS ORDERED: AZIT500T2 PO (09:05)
[2016-11-30] MEDS ORDERED: PRED10PA PO (09:05)
[2016-11-30] MEDS: HEPARIN SOD (PORCINE) 5000 UNITS/ML VIAL SC SCH (09:57)
[2016-11-30] MEDS: ASPIRIN 81 MG ENTERIC TAB PO SCH (09:58)
[2016-11-30] MEDS: FAMOTIDINE 20 MG TAB PO SCH (09:58)
[2016-11-30] MEDS: guaiFENesin ER 600 MG TAB PO SCH (09:58)
[2016-11-30] MEDS: POTASSIUM CHLORIDE 10 MEQ SR TABLET PO SCH (09:58)
[2016-11-30] MEDS: VITAMIN D 1,000 INTERNATIONAL UNITS TABLET PO SCH (09:58)
[2016-11-30] MEDS: SENOKOT S TAB PO SCH (09:59)
[2016-11-30] MEDS: FUROSEMIDE 20 MG TAB PO SCH (09:59)
[2016-11-30 10:02] VITALS: BP 118/63
[2016-11-30] MEDS: DIGOXIN 0.125 MG TAB PO SCH (10:02)
[2016-11-30] MEDS: METOPROLOL TART 25 MG TABLET PO SCH (10:02)
[2016-11-30 10:54] LABS: DIGOXIN LEVEL 0.6 NG/ML (0.5-2.0)
[2016-11-30] MEDS ORDERED: VITA100T56 PO (13:40)
[2016-11-30 14:00] VITALS: BP 119/75
--- NOTE | 2016-11-30 21:20 | DSES ---
DATE OF ADMISSION: 11/27/2016 DATE OF DISCHARGE: 11/30/2016 No specialists involved in her care. No complications during her stay. No procedure were performed during her stay. DISCHARGE DIAGNOSES: 1. Chronic obstructive pulmonary disorder (COPD). 2. COPD exacerbation. 3. Early community acquired pneumonia. 4. Acute bronchitis. 5. Respiratory syncytial virus (RSV). 6. Atrial fibrillation, on Coumadin. 7. Coronary artery disease. 8. Congestive heart failure, systolic and diastolic dysfunction. 9. Hypothyroidism. The following is a summary of her hospitalization: This is an 85-year-old with the presentation for cough, was found to have RSV, thought to have early pneumonia and was treated empirically with antibiotics and steroids. Improved relatively rapidly during her stay. Was seen by physical therapy. On the day of discharge she is ambulating without difficulty independently. No complaints of pain, chest pain, shortness of breath, tolerating a diet. Temperature 96.7, pulse 81, respiratory rate 19, blood pressure 119/75. Oxygen saturation 96% on room air. Intake and output (I and O) notable for positive fluid balance of 590. She is awake, appropriately interactive, pleasantly conversant. Mucous membranes moist. Breathing symmetrical. Speaking in complete sentences. No accessory muscle use. I:E ratio is 1:4. Heart is in a regular rate and rhythm. White cell count 5.4, hemoglobin 10.5, platelets of 122, BUN 24, creatinine 1.05, digoxin level on the day of discharge is 0.6. Discharge instructions include the following: Followup with Topher Meléndez on 12/07/2016 at 11 a.m. Diet and activity as tolerated. Continue azithromycin 500 mg by mouth daily, #300. Cefdinir 300 mg by mouth twice a day #10. Prednisone 10 mg by mouth daily for 3 days. Albuterol 2 puffs inhaled 4 times daily for shortness of breath. Aspirin 81 mg by mouth daily. Atorvastatin 20 mg by mouth every evening. Tessalon Perles as needed for cough. Cod liver oil as deemed clinically necessary. Digoxin 1/4 tablet or 0.0625 mg by mouth daily. Senokot S 1 tablet by mouth daily. Lasix 20 by mouth daily. Synthroid 50 mcg by mouth every morning. Metoprolol tartrate 12.5 mg by mouth daily. Potassium (KCL) 20 mEq by mouth daily. Zantac 150 mg by mouth twice daily. Vitamin D supplement. She is to take vitamin K as directed. Discontinue Augmentin and discontinue Coumadin for now. Do not take Coumadin until instructed by Dr. Ryan. She was given a script for PT/INR to be done Wednesday, , Wednesday.
== END 2016-11-30 16:30 | disposition home or self-care (01) | DRG 190 ==
LOC: M ED 16:51 → M ED INP 21:22 → M MSPAV 23:23
PROVIDERS: ADMIT Hospitalist; ATTEND Internal Medicine
DX: J44.1 Chronic obstructive pulmonary disease with (acute) exacerbation (principal); J18.9 Pneumonia, unspecified organism; I50.40 Unspecified combined systolic (congestive) and diastolic (congestive) heart failure; J21.0 Acute bronchiolitis due to respiratory syncytial virus; E03.9 Hypothyroidism, unspecified; I25.10 Atherosclerotic heart disease of native coronary artery without angina pectoris; I48.91 Unspecified atrial fibrillation; B97.4 Respiratory syncytial virus as the cause of diseases classified elsewhere; I11.0 Hypertensive heart disease with heart failure; D64.9 Anemia, unspecified; Z95.0 Presence of cardiac pacemaker; Z86.711 Personal history of pulmonary embolism; Z99.81 Dependence on supplemental oxygen; Z88.8 Allergy status to other drugs, medicaments and biological substances; Z91.09 Other allergy status, other than to drugs and biological substances; Z79.82 Long term (current) use of aspirin; Z79.01 Long term (current) use of anticoagulants

== ENCOUNTER → 2016-12-10 | Outpatient (REF) | payer MEDICARE ==
[~2016-12-10] MED LIST changes: +AUGM875T27 PO; +AZIT500T2 PO; +BENZ100C5 PO; +CEFD1CAP8 PO; +PRED10PA PO; +SENN-23 PO; +SYNT50TA PO; +WARF-18 PO
[2016-12-10 19:52] LABS: PERCENT SATURATION 33.7 % (13.2-37.4)
== END ==
LOC: M LAB REF 17:19
PROVIDERS: ATTEND Internal Medicine
DX: N18.3 Chronic kidney disease, stage 3 (moderate) (principal); D61.818 Other pancytopenia

== ENCOUNTER → 2017-04-19 | Outpatient (REF) | payer MEDICARE ==
[~2017-04-19] MED LIST changes: -COLA100C PO; +COLA100C3 PO
== END ==
LOC: M LAB REF 11:59
PROVIDERS: ATTEND Internal Medicine
DX: I48.2 Chronic atrial fibrillation (principal)

== ENCOUNTER → 2017-06-07 | Outpatient (REF) | payer MEDICARE ==
[~2017-06-07] MED LIST changes: -AUGM875T27 PO; +AUGM875T28 PO; +BREO1INH INH; +CEFD300CAP PO; -COLA100C3 PO; +COLA100C5 PO; -COUM2.5T11 PO; +COUM2.5T17 PO; +METO25TA4 PO; -METO25TAB PO; +OXYC1TAB23 PO; +PERC5TAB12 PO; -PROA1AER INH; +PROAAER10 INH; +SENN8.6T17 PO; +TYLE325T5 PO; +VITA-112 PO
[2017-06-07 16:39] LABS: MEAN CORPUSCULAR HEMOGLOBIN 31.7 pg (27.0-33.0); MEAN CORPUSCULAR HGB CONC 32.7 g/dl (32.0-36.5); MEAN CORPUSCULAR VOLUME 96.9 fl (80.0-96.0); RED CELL DISTRIBUTION WIDTH 13.2 % (11.5-14.5); WHITE BLOOD COUNT 4.8 K/mm3 (4.0-10.0)
== END ==
LOC: M LABDRAW1 16:14
PROVIDERS: ATTEND Orthopaedic Surgery
DX: Z96.652 Presence of left artificial knee joint (principal)

== ENCOUNTER 2017-06-14 14:27 | Emergency (ER) | payer MEDICARE ==
[~2017-06-14] VITALS: Ht 147.3 cm; Wt 43.6 kg
[2017-06-14 14:27] VITALS: BP 120/71
[~2017-06-14 14:27] MED LIST changes: -BREO1INH INH; -CEFD300CAP PO; -OXYC1TAB23 PO; -PERC5TAB12 PO; -SENN8.6T17 PO; -TYLE325T5 PO; -VITA-112 PO
[2017-06-14] MEDS ORDERED: TYLE325T5 PO (15:08)
[2017-06-14] MEDS ORDERED: COUM2.5T17 PO (15:08)
--- NOTE | 2017-06-14 16:31 | REP ---
Left knee series: Five views: History: Pain. Comparison study 05/26/2007. Findings: The patient is status post left knee arthroplasty. Arthroplasty components remain normally aligned. No fracture or subsidence is seen. There is diffuse osteopenia. Impression: Status post left knee arthroplasty. Diffuse osteopenia. No acute abnormality. Signed by Chandana Vallejo MD 06/14/2017 05:12 P
--- NOTE | 2017-06-14 16:43 | REP ---
Left hip: Two views: History: Pain. Comparison study: 01/15/2013. Findings: There is diffuse osteopenia. Mild to moderate left hip osteoarthritis is seen with femoral and acetabular spurring and some joint space narrowing. A pacemaker device is visualized over the left iliac crest. A dystrophic calcification is seen adjacent to the superior acetabulum. Impression: Osteoarthritis of the left hip. No acute bony abnormality. Signed by Chandana Vallejo MD 06/14/2017 05:12 P
[2017-06-14] MEDS ORDERED: ACETAMINOPHEN TAB 650MG DOSE (2X325MG) PO ONE (17:00)
== END 2017-06-14 17:18 | disposition home or self-care (01) ==
LOC: M ED 14:27
DX: M17.12 Unilateral primary osteoarthritis, left knee (principal); M16.12 Unilateral primary osteoarthritis, left hip

== ENCOUNTER → 2017-06-15 | Outpatient (CLI) | payer MEDICARE ==
[~2017-06-15] MED LIST changes: +BREO1INH INH; +CEFD300CAP PO; +OXYC1TAB23 PO; +PERC5TAB12 PO; +SENN8.6T17 PO; +TYLE325T5 PO; +VITA-112 PO
--- NOTE | 2017-06-15 14:04 | REP ---
TRIPLE PHASE BONE SCAN OF THE KNEES: Following the administration of 22 mCi technetium 99m MDP, patient's knees are imaged in the flow phase in the anterior and posterior projections showing fairly symmetrical blood flow bilaterally. Immediate blood pool and 4-hour delayed images are performed of the knees in the anterior, posterior, and both lateral projections. Photopenic area in the left knee joint is consistent with a knee prosthesis. There is minimal increased blood pooling in the region of the medial aspect of the right knee joint. Delayed images show periarticular uptake in the right knee joint medially, consistent with arthritic changes. I do not see significant increased uptake along the left knee prosthesis with no scintigraphic evidence for loosening or infection. IMPRESSION: Left knee prosthesis without compelling scintigraphic evidence of loosening or infection. Arthritic changes medial right knee joint. Signed by Viral Marin MD 06/15/2017 04:44 P
== END ==
LOC: M RAD 08:26
PROVIDERS: ATTEND Orthopaedic Surgery
DX: Z96.652 Presence of left artificial knee joint (principal)
CPT/HCPCS: 78315; A9503

== ENCOUNTER 2017-08-13 17:38 | Emergency (ER) | payer MEDICARE ==
[~2017-08-13] VITALS: Ht 157.5 cm; Wt 45.0 kg
[~2017-08-13 17:38] MED LIST changes: -BREO1INH INH; -CEFD300CAP PO; -OXYC1TAB23 PO; -PERC5TAB12 PO; -SENN8.6T17 PO; -VITA-112 PO
[2017-08-13] MEDS ORDERED: MORPHINE 4 MG/ML 1ML SYRINGE IV ONE (19:00)
[2017-08-13] MEDS ORDERED: MORPHINE 2 MG/ML 1ML SYRINGE As Ordered ONE (19:38)
[2017-08-13] MEDS ORDERED: MORPHINE 2 MG/ML 1ML SYRINGE IV ONE (19:45)
[2017-08-13 19:50] LABS: BASO % 0.3 % (0.0-1.0); EOS # 0.1 10^3/uL (0.0-0.50); EOS % 1.6 % (0.0-3.0); IMMATURE GRANULOCYTE % 0.6 % (0-0); LYMPH # 1.3 10^3/uL (1.5-4.5); LYMPH % 20.2 % (24.0-44.0); MEAN CORPUSCULAR HEMOGLOBIN 31.9 pg (27.0-33.0); MEAN CORPUSCULAR VOLUME 96.7 fl (80.0-96.0); MONO # 0.7 10^3/uL (0.0-0.8); MONO % 11.3 % (0.0-5.0); NEUTROPHILS # 4.2 10^3/uL (1.8-7.7); PLATELET COUNT, AUTOMATED 125 10^3/uL (150-450); RED CELL DISTRIBUTION WIDTH 12.6 % (11.5-14.5); WHITE BLOOD COUNT 6.3 10^3/uL (4.0-10.0)
[2017-08-13 20:03] LABS: INR 1.54
--- NOTE | 2017-08-13 20:10 | REPUSA ---
HISTORY: BENT OVER NOW SEVERE LOW BACK PAIN. TECHNIQUE: Axial CT imaging of lumbar spine with coronal and sagittal reformatted imaging, without co ntrast. DLP= 278.3 mGy-cm. FINDINGS: There is an estimated 67% compression fracture of the L1 lumbar vertebral body and an estim ated 33% compression fracture of the L3 lumbar vertebral body. There is multilevel degenerative disc disease with posterior disc bulging/spurring greatest at T12/L1 , L2/L3, and L5/S1. There is a prominent 6 mm spur at the L5/S1 impinging upon the right anterolater al thecal sac, best seen on the axial sequence, image 46. There is 0.8 cm canal stenosis at L4/L5. There is 0.5 cm canal stenosis at L2/L3. IMPRESSION: 1. Compression fractures at L1 and L3 lumbar vertebral bodies, as discussed above. 2. Multilevel degenerative disc disease and facet joint osteoarthritis, greatest at L5/S1 with canal stenosis identified at L5/S1, L2/L3, and L4/L5. Clinical correlation is suggested in order to localize and determine neurological significance of pos sible nerve root impingement in the multiple areas of foraminal stenoses. Consider follow-up imaging with MRI examination.
[2017-08-13 20:29] LABS: ANION GAP 5 MEQ/L (8-16); BLOOD UREA NITROGEN 20 MG/DL (7-18); CARBON DIOXIDE LEVEL 31 MEQ/L (21-32); CHLORIDE LEVEL 104 MEQ/L (98-107); CREATININE FOR GFR 0.88 MG/DL (0.55-1.02); DIGOXIN LEVEL 0.7 NG/ML (0.5-2.0); GLOMERULAR FILTRATION RATE > 60.0 (>32); GLUCOSE, FASTING 100 MG/DL (83-110); POTASSIUM SERUM 4.6 MEQ/L (3.5-5.1); SODIUM LEVEL 140 MEQ/L (136-145)
[2017-08-13] MEDS ORDERED: OXYCODONE/APAP 5MG/325MG(BULK FOR ED) 1 TABLET PO ONE (20:45)
[2017-08-13] MEDS ORDERED: PERC5TAB12 PO (20:46)
[2017-08-13 22:00] VITALS: BP 135/74
--- NOTE | 2017-08-15 07:09 | ED PDOC ---
Post-Departure Follow-Up radiology report faxed to Radha Bledsoe MD Aug 15, 2017 07:09
== END 2017-08-13 22:09 | disposition home or self-care (01) ==
LOC: EDBD 17:38 → M ED 17:38
DX: M54.5 Low back pain (principal)

== ENCOUNTER 2017-08-15 11:27 | Inpatient (IN) | payer MEDICARE ==
[~2017-08-15] VITALS: Ht 147.3 cm; Wt 44.6 kg
[~2017-08-15 11:27] MED LIST changes: +PERC5TAB12 PO
[2017-08-15] MEDS ORDERED: ACETAMINOPHEN TAB 650MG DOSE (2X325MG) PO ONE (13:00)
[2017-08-15 13:03] LABS: VENOUS BASE EXCESS 1.8 (-2.0-2.0); VENOUS O2 SATURATION 96.7 % (60.0-80.0); VENOUS PARTIAL PRESSURE CO2 39.2 mmHg (38.0-50.0); VENOUS PARTIAL PRESSURE O2 85.7 mmHg (30.0-50.0); VENOUS TOTAL CO2 27.2 MEQ/L (24.0-28.0)
[2017-08-15 13:04] LABS: BASO % 0.3 % (0.0-1.0); EOS # 0.1 10^3/uL (0.0-0.50); IMMATURE GRANULOCYTE % 0.3 % (0-0); LYMPH # 0.8 10^3/uL (1.5-4.5); LYMPH % 11.9 % (24.0-44.0); MEAN CORPUSCULAR HEMOGLOBIN 30.9 pg (27.0-33.0); MEAN CORPUSCULAR HGB CONC 32.2 g/dl (32.0-36.5); MEAN CORPUSCULAR VOLUME 96.1 fl (80.0-96.0); MONO % 15.1 % (0.0-5.0); NEUTROPHILS # 4.9 10^3/uL (1.8-7.7); NEUTROPHILS % 71.4 % (36.0-66.0); PLATELET COUNT, AUTOMATED 102 10^3/uL (150-450); RED CELL DISTRIBUTION WIDTH 12.5 % (11.5-14.5); WHITE BLOOD COUNT 6.8 10^3/uL (4.0-10.0)
[2017-08-15 13:32] LABS: OSMOLALITY SERUM 290 MOSM/KG (280-301)
[2017-08-15 13:36] LABS: CALCIUM OXALATE CRYSTALS SMALL
[2017-08-15 13:52] LABS: ALBUMIN 3.4 GM/DL (3.2-5.2); ALBUMIN/GLOBULIN RATIO 1.03 (1.00-1.93); ALKALINE PHOSPHATASE 68 U/L (45-117); ALT/SGPT 18 U/L (12-78); ANION GAP 6 MEQ/L (8-16); AST/SGOT 22 U/L (15-37); BILIRUBIN,DIRECT 0.3 MG/DL (0.0-0.2); BILIRUBIN,TOTAL 0.8 MG/DL (0.2-1.0); BLOOD UREA NITROGEN 22 MG/DL (7-18); CALCIUM LEVEL 8.2 MG/DL (8.8-10.2); CARBON DIOXIDE LEVEL 27 MEQ/L (21-32); CHLORIDE LEVEL 105 MEQ/L (98-107); CREATININE FOR GFR 1.01 MG/DL (0.55-1.02); GLOMERULAR FILTRATION RATE 55.2 (>32); GLUCOSE, FASTING 91 MG/DL (83-110); POTASSIUM SERUM 4.3 MEQ/L (3.5-5.1); SODIUM LEVEL 138 MEQ/L (136-145); TOTAL PROTEIN 6.7 GM/DL (6.4-8.2)
--- NOTE | 2017-08-15 14:47 | REP ---
CT of the brain without IV contrast: Comparison is 09/14/2015. There is no hemorrhage. There is no edema, mass effect or midline shift. The cortical stripe is unremarkable. There is mild dilatation of the ventricles and sulci compatible with diffuse volume loss. This is unchanged. Visualized paranasal sinuses and mastoid air cells are clear. Impression: There is no hemorrhage, acute infarct or mass. There is mild diffuse volume loss, unchanged. Signed by Viral Villavicencio MD 08/15/2017 12:44 P
--- NOTE | 2017-08-15 14:47 | REP ---
Portable chest, 11:49 a.m., single AP view, patient sitting: There is a left pleural effusion as a change from the comparison study of 11/27/2016. Cardiomegaly is again noted, unchanged. Bilateral upper lobe fibrosis is again noted, unchanged. There is bilateral shoulder osteoarthritis, unchanged. Epicardial pacer leads are again noted, unchanged. Impression: New left pleural effusion. Other chronic stable changes as identified. Epicardial pacer leads are again identified on the right, unchanged. Signed by Viral Villavicencio MD 08/15/2017 12:08 P
--- NOTE | 2017-08-15 14:48 | REP ---
AP pelvis and right hip: AP pelvis single view: There is bilateral hip osteoarthritis. There is diffuse demineralization. There is no pelvic fracture. No right or left hip fracture. There is a electronic pack superimposed over the left sacral ala. There are coiled spurring or tears adjacent to the electronic pack. Impression: No pelvic fracture. Bilateral hip osteoarthritis. Right hip two views: There is osteoarthritis and demineralization. There is no fracture or dislocation. There are no calcifications or foreign bodies. Signed by Viral Villavicencio MD 08/15/2017 12:50 P
--- NOTE | 2017-08-15 14:48 | REP ---
Right femur two views : There is no fracture or dislocation. Mineralization and joint spaces are normal. There are no calcifications or foreign bodies. Impression: Negative right femur . Signed by Viral Villavicencio MD 08/15/2017 12:48 P
--- NOTE | 2017-08-15 14:48 | REP ---
Right tibia-fibula four views: There is diffuse demineralization. There is tricompartment osteoarthritis at the knee. There is no fracture or dislocation. No calcifications or foreign bodies. Signed by Viral Villavicencio MD 08/15/2017 12:51 P
[2017-08-15] MEDS ORDERED: BREO1INH INH (14:52)
[2017-08-15] MEDS ORDERED: VITA-112 PO (14:52)
[2017-08-15] MEDS ORDERED: VITA100T56 PO (14:52)
[2017-08-15] MEDS ORDERED: SENN8.6T17 PO (14:52)
[2017-08-15] MEDS ORDERED: OXYC1TAB23 PO (14:52)
[2017-08-15 15:00] LABS: INR 1.47
[2017-08-15] MEDS ORDERED: cefTRIAXone SOD 1 GM in D5W 50 ML IV ONE (15:00)
--- NOTE | 2017-08-15 16:59 | REP ---
CT of the cervical spine without IV contrast: Comparison is 01/14/2013. Axial images are acquired without IV contrast and reformatted sagittal and coronal projections. The skull base, C1-C2 are unremarkable except for osteoarthritis. There is advanced osteoarthritis throughout the facet articulations. Vertebral body heights are normal. There is diffuse demineralization. There are filling millimeters anterior listhesis of the vertebral body of C4-5 and see C7 on T1. This is unchanged. There is advanced degenerative disc disease at C 05/06 and C6-7. This is unchanged. The prevertebral soft tissues are normal. The facets are normally aligned. There is no anterior posterior element fracture. There is irregular pleural thickening and calcified pleural plaque in the lung apices posteriorly. This is unchanged from a chest CT of 08/13/2009. Impression: Multilevel degenerative disc disease and facet osteoarthritis. If there is concern for radiculopathy I would recommend follow-up MRI. Signed by Viral Villavicencio MD 08/15/2017 04:50 P
--- NOTE | 2017-08-15 17:44 | HPEPDOC ---
[facility] Medical History & Physical Date of Admission Aug 15, 2017 History and Physical PRIMARY CARE PROVIDER: Dr. Ryan ATTENDING: Dr. Brennon Pool CHIEF COMPLAINT: Right upper extremity weakness HISTORY OF PRESENT ILLNESS: This is a 86-year-old female past medical history of atrial fibrillation on Coumadin, COPD, CAD status post PCI, PPM, history of PE, hyper , osteoporosis, hypertension, systolic/diastolic heart failure, CK D stage III presents complaining of right upper extremity weakness. Patient states her right upper extremity weakness had started last nights on to the point where she is having difficulty eating her dinner. Patient states this had progressed up until she arrived to the ED when this completely resolved. She does note that she has her INRs checked at home however does not remember her last INR result. Patient was recently seen in the emergency departments for acute back pain on Wednesday and was noted to have L1/L3 compression fracture, and discharged home with pain medications. Patient was taking oxycodone and her daughter notes that every time she takes it, she developed altered mental status. Patient denies any chest pain/shortness breath/palpitations. No nausea/vomiting/ abdominal pain. She states that her right upper extremity weakness has completely resolved. She does have lumbar pain with radiculopathy down her right lower extremity however her pain is controlled at this point. PAST MEDICAL HISTORY: As per HPI PAST SURGICAL HISTORY: PPM, CAD status post PCI, left knee arthroplasty, bilateral cataracts, appendectomy, wrist surgery SOCIAL HISTORY: Denies tobacco, alcohol, illicit drug use. FAMILY HISTORY: Noncontributory ALLERGIES: Please see below. REVIEW OF SYSTEMS: HEENT: Denies sore throat/headache CARDIOVASCULAR: Denies chest pain/palpitations RESPIRATORY: Denies shortness of breath/cough GASTROINTESTINAL: denies nausea/vomiting GENITOURINARY: Denies dysuria/urinary urgency. MUSCULOSKELETAL: Denies myalgias/arthralgias NEUROLOGICAL: Right upper extremity weakness that has resolved HOME MEDICATIONS: Please see below. PHYSICAL EXAMINATION: Vitals: (see below) General: No acute distress, laying comfortably in bed. HEENT: Moist mucous membranes. Neck: No JVD or lymphadenopathy Cardiac: Irregularly irregular, No murmurs Pulm: Diminished breath sounds at the bases b/l. No wheezing, rhonchi Abd: NT/ND + BS Ext: No edema or cyanosis Neuro: Strength 5/5 BUE and BLE. CN 2-12 intact. 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 Negative pronator drift. Negative Babinki. NIH 0 LABORATORY DATA: See below. IMAGING: CT lumbar spine 08/13/17 IMPRESSION: 1. Compression fractures at L1 and L3 lumbar vertebral bodies, as discussed above. 2. Multilevel degenerative disc disease and facet joint osteoarthritis, greatest at L5/S1 with canal stenosis identified at L5/S1, L2/L3, and L4/L5. Clinical correlation is suggested in order to localize and determine neurological significance of possible nerve root impingement in the multiple areas of foraminal stenoses. Consider follow-up imaging with MRI examination. CT head on 08/15/17 Impression: There is no hemorrhage, acute infarct or mass. There is mild diffuse volume loss, unchanged. MICROBIOLOGY: Please see below. ASSESSMENT/PLAN: 1. TIA- patient did have right upper extremity weakness that has resolved. She does have a history of atrial fibrillation and her INR was subtherapeutic. We' ll increase dose the Coumadin. Unable to obtain MRI of the brain given PPM. We will repeat CT the head tomorrow morning. Continue statin. Also on aspirin. 2. L1/L3 compression fracture- patient does have a history of osteoporosis and has not been on treatment recently. Will need outpatient follow-up for her osteoporosis. In the meantime, patient will be placed in an abdominal binder. Consider TLSO brace physical therapy has been ordered. Avoid strong opiates. Tylenol as needed. Tramadol as needed.. 3. Atrial fibrillation- rate controlled and on Coumadin. We will increase dose of Coumadin, as it is subtherapeutic. 4. History of CAD status post PCI- continue home meds 5. History of COPD- continue home inhalers 6. History of PE 7. History of hypothyroidism on Synthroid 8. History of systolic and diastolic heart failure 10. Hypertension controlled- continue home meds DVT prophylaxis- Coumadin Patient will follow Dr. Brennon Pool starting 08/16/17 7 AM. Vital Signs Vital Signs Date Time Temp Pulse Resp B/P (MAP) Pulse Ox O2 Delivery O2 Flow Rate FiO2 08/15/17 17:10 98.1 69 18 98/54 (69) 93 Room Air Laboratory Data Labs 24H Laboratory Tests 2 08/15/17 12:17: Prothrombin Time 18.2H, Prothromb Time International Ratio 1.47 08/15/17 12:53: Immature Granulocyte % (Auto) 0.3H, White Blood Count 6.8, Red Blood Count 3.56L , Hemoglobin 11.0L, Hematocrit 34.2L, Mean Corpuscular Volume 96.1H, Mean Corpuscular Hemoglobin 30.9, Mean Corpuscular Hemoglobin Concent 32.2, Red Cell Distribution Width 12.5, Platelet Count 102L, Neutrophils (%) (Auto) 71.4H, Lymphocytes (%) (Auto) 11.9L, Monocytes (%) (Auto) 15.1H, Eosinophils (%) (Auto ) 1.0, Basophils (%) (Auto) 0.3, Neutrophils # (Auto) 4.9, Lymphocytes # (Auto) 0.8L, Monocytes # (Auto) 1.0H, Eosinophils # (Auto) 0.1, Basophils # (Auto) 0.0 , Immature Granulocyte # (Auto) 0.0, Nucleated Red Blood Cells % (auto) 0.0, Blood Gas Bicarbonate Standard 26.0, Venous Blood pH 7.439H, Venous Blood Partial Pressure CO2 39.2, Venous Blood Partial Pressure O2 85.7H, Venous Blood Total Carbon Dioxide 27.2, Venous Blood HCO3 26.0, Venous Blood Oxygen Saturation 96.7H, Venous Blood Base Excess 1.8, Anion Gap 6L, Glomerular Filtration Rate 55.2, Osmolality 290, Lactic Acid Level 0.8, Calcium Level 8.2L , Aspartate Amino Transf (AST/SGOT) 22, Alanine Aminotransferase (ALT/SGPT) 18, Alkaline Phosphatase 68, Total Bilirubin 0.8, Direct Bilirubin 0.3H, Ammonia 19 , Total Protein 6.7, Albumin 3.4, Albumin/Globulin Ratio 1.03, Thyroid Stimulating Hormone (TSH) 1.190, Digoxin Level 0.7 08/15/17 13:17: Urine Appearance TURBIDH, Urine Color MARILY, Urine pH 5.0, Urine Specific [place] 1.021, Urine Protein 1+H, Urine Glucose (UA) NEGATIVE, Urine Ketones NEGATIVE, Urine Urobilinogen 0.2, Urine Bilirubin NEGATIVE, Urine Leukocyte Esterase 3+H, Urine Blood 3+H, Urine Nitrite POSITIVE, Urine WBC (Auto) TNTCH, Urine RBC (Auto) 106H, Urine Hyaline Casts (Auto) 0, Urine Bacteria (Auto) 3+H, Urine Squamous Epithelial Cells 4, Urine Calcium Oxalate Cryst (Auto) SMALL, Urine Sperm (Auto) CBC/BMP Laboratory Tests 08/15/17 12:53 Red Blood Count 3.56 L, Mean Corpuscular Volume 96.1 H, Mean Corpuscular Hemoglobin 30.9, Mean Corpuscular Hemoglobin Concent 32.2, Red Cell Distribution Width 12.5, Neutrophils (%) (Auto) 71.4 H, Lymphocytes (%) (Auto) 11.9 L, Monocytes (%) (Auto) 15.1 H, Eosinophils (%) (Auto) 1.0, Basophils (%) ( Auto) 0.3, Neutrophils # (Auto) 4.9, Lymphocytes # (Auto) 0.8 L, Monocytes # ( Auto) 1.0 H, Eosinophils # (Auto) 0.1, Basophils # (Auto) 0.0 Microbiology Microbiology 08/15/17 Blood Culture, Received Pending 08/15/17 Blood Culture, Received Pending 08/15/17 Urine Culture, Received Pending Home Medications Scheduled Aspirin (Aspirin 81) 81 Mg Tab, 81 MG PO DAILY Atorvastatin Calcium (Atorvastatin Calcium) 20 Mg Tab, 20 MG PO QPM Cholecalciferol (Vitamin D-1000) 1,000 Unit Tab, 1,000 UNIT PO DAILY Cod Liver Oil (Cod Liver Oil) 1 Cap Cap, 1 CAP PO DAILY Digoxin (Digox) 0.125 Mg Tab, 0.125 MG PO DAILY Fluticasone/Vilanterol (Breo Ellipta 100-25 Mcg/INH) 1 Inh Inh, 1 PUFF INH DAILY Furosemide (Furosemide) 20 Mg Tab, 20 MG PO DAILY Levothyroxine Sodium (Synthroid) 50 Mcg Tab, 50 MCG PO QAM Metoprolol Tartrate (Metoprolol Tartrate) 25 Mg Tab, 12.5 MG PO DAILY Phytonadione (Vitamin K) 100 Mcg Tab, 100 MCG PO DAILY Potassium Chloride (Klor-Con M10) 10 Meq Tabcr, 20 MEQ PO DAILY Ranitidine Hcl (Zantac) 150 Mg Tab, 150 MG PO BID Senna (Senna Laxative) 8.6 Mg Tab, 1 TAB PO DAILY Warfarin Sod (Coumadin) 2.5 Mg Tab, 2.5 MG PO QPM Scheduled PRN Acetaminophen (Tylenol) 325 Mg Tab, 500 MG PO PRN PRN for pain Albuterol Sulfate (Proair Hfa) 108 Mcg/Act Aer, 2 PUFFS INH QID PRN for SHORTNESS OF BREATH Oxycodone/Acetaminophen (Oxycodone/Acetaminophen 5-325 mg) 1 Tab Tab, 1 TAB PO Q6H PRN for PAIN Allergies Coded Allergies: METALS (Verified Allergy, Intermediate, ITCHY,BREAKS OUT, 06/14/17) Molds & Smuts (Verified Allergy, Unknown, 06/14/17) Cyclopentolate (Verified Adverse Reaction, Intermediate, PASSED OUT, ) BLAIR TALAVERA MD Aug 15, 2017 17:44
[2017-08-15] MEDS ORDERED: ACETAMINOPHEN 325 MG TAB PO PRN (17:45)
[2017-08-15 17:50] VITALS: BP 127/70
[2017-08-15] MEDS: DIGOXIN 0.125 MG TAB PO SCH (18:30)
[2017-08-15] MEDS: POTASSIUM CHLORIDE 10 MEQ SR TABLET PO SCH (18:30)
[2017-08-15] MEDS: SENNA 8.6 MG TAB (SENOKOT) PO SCH (18:30)
[2017-08-15] MEDS: VITAMIN D 1,000 INTERNATIONAL UNITS TABLET PO SCH (18:31)
[2017-08-15] MEDS: FUROSEMIDE 20 MG TAB PO SCH (18:31)
[2017-08-15] MEDS: ASPIRIN 81 MG ENTERIC TAB PO SCH (18:31)
[2017-08-15] MEDS: WARFARIN SOD 5 MG TAB PO SCH (18:31)
[2017-08-15] MEDS: METOPROLOL TART 12.5 MG PER 1/2 TAB PO SCH (18:33)
[2017-08-15 19:56] VITALS: BP 102/58
[2017-08-15] MEDS: FAMOTIDINE 20 MG TAB PO SCH (20:02)
[2017-08-15] MEDS: ATORVASTATIN 20 MG TAB PO SCH (20:02)
[2017-08-15] MEDS: traMADol 50 MG TAB PO PRN (20:02)
[2017-08-15] MEDS ORDERED: SLF 3 ML SYR IV PRN (21:00)
[2017-08-15] MEDS: SLF 3 ML SYR IV SCH (21:06)
[2017-08-15 23:33] VITALS: BP 149/71
[2017-08-16 04:14] VITALS: BP 120/60
[2017-08-16] MEDS: ACETAMINOPHEN TAB 650MG DOSE (2X325MG) PO PRN ×2 (04:42→16:42)
[2017-08-16] MEDS: SLF 3 ML SYR IV SCH ×3 (05:05→19:55)
[2017-08-16] MEDS: LEVOTHYROXINE 50MCG TABLET (0.05MG) PO SCH (05:05)
--- NOTE | 2017-08-16 06:40 | REPUSA ---
CLINICAL HISTORY: Transient ischemic attack. TECHNIQUE: Multiple axial CT images were obtained through the brain without IV contrast material. COMMENTS: There is normal configuration of sella turcica. There are no intra or extra-axial collections. There is no mass effect or midline shift. There is no evidence of hematoma formation. No hydrocephalus is p resent. The ventricles are symmetrical. No abnormal calcifications are present. There is diffuse age-appropriate cerebellar and cerebral atrophy with proportionally dilated ventricl es and cortical sulci. There are bilateral periventricular and subcortical white matter hypolucencies compatible with mild c hronic microvascular disease. Otherwise, no significant focal abnormalities are seen either in the posterior fossa or supratentoria l compartment. IMPRESSION: 1. Age-appropriate cerebellar and cerebral atrophy. 2. Mild chronic microvascular disease. 3. No evidence of acute intracranial pathology. Unchanged exam since 08/15/2017. Thank you for your kind referral of this patient.
[2017-08-16 07:52] LABS: CREATININE FOR GFR 1.03 MG/DL (0.55-1.02); POTASSIUM SERUM 4.1 MEQ/L (3.5-5.1)
[2017-08-16 08:00] VITALS: BP 116/59
[2017-08-16 08:03] LABS: BASO % 0.4 % (0.0-1.0); EOS # 0.1 10^3/uL (0.0-0.50); IMMATURE GRANULOCYTE % 0.4 % (0-0); LYMPH # 1.4 10^3/uL (1.5-4.5); LYMPH % 24.5 % (24.0-44.0); MEAN CORPUSCULAR HEMOGLOBIN 31.1 pg (27.0-33.0); MEAN CORPUSCULAR HGB CONC 32.2 g/dl (32.0-36.5); MEAN CORPUSCULAR VOLUME 96.5 fl (80.0-96.0); MONO # 0.8 10^3/uL (0.0-0.8); MONO % 15.3 % (0.0-5.0); NEUTROPHILS # 3.2 10^3/uL (1.8-7.7); NEUTROPHILS % 57.4 % (36.0-66.0); PLATELET COUNT, AUTOMATED 100 10^3/uL (150-450); RED CELL DISTRIBUTION WIDTH 12.6 % (11.5-14.5); WHITE BLOOD COUNT 5.5 10^3/uL (4.0-10.0)
--- NOTE | 2017-08-16 08:23 | IPNPDOC ---
Text Note Date of Service The patient was seen on 08/16/17. NOTE Subjective: Patient seen and examined at bedside. No new medical complaints. States she is feeling better, her back pain has improved. She does admit to episodes of dysuria. Objective: General: No acute distress, laying comfortably in bed, elderly, frail HEENT: Moist mucous membranes. Neck: No JVD or lymphadenopathy Cardiac: Irregularly irregular, +S1S2, No murmurs Pulm: Diminished breath sounds at the bases b/l. No wheezing, rhonchi Abd: NT/ND + BS, PPM LLQ, + suprapubic tenderness Ext: No edema or cyanosis Neuro: legally blind at baseline, AAOx3 A/P: 86 yo female for likely TIA found to have UTI 1. TIA - patient did have right upper extremity weakness that has resolved - She does have a history of atrial fibrillation and her INR was subtherapeutic - continue coumadin - Unable to obtain MRI of the brain given PPM - repeat CT head no acute pathology - Continue statin. Also on aspirin. 2. UTI - UCx pending, continue ceftriaxone 2. L1/L3 compression fracture - patient does have a history of osteoporosis and has not been on treatment recently - Will need outpatient follow-up for her osteoporosis - continue abdominal binder - Consider TLSO brace? - PT pending - Tylendol, tramadol PRN 3. Atrial fibrillation - rate controlled - coumadin for anticoagulation 4. History of CAD status post PCI - continue home meds 5. History of COPD- continue home inhalers 6. History of PE 7. History of hypothyroidism on Synthroid 8. History of systolic and diastolic heart failure 10. Hypertension controlled- continue home meds DVT prophylaxis- Coumadin VS,Fishbone, I+O VS, Fishbone, I+O Laboratory Tests 08/15/17 12:53 Red Blood Count 3.56 L, Mean Corpuscular Volume 96.1 H, Mean Corpuscular Hemoglobin 30.9, Mean Corpuscular Hemoglobin Concent 32.2, Red Cell Distribution Width 12.5, Neutrophils (%) (Auto) 71.4 H, Lymphocytes (%) (Auto) 11.9 L, Monocytes (%) (Auto) 15.1 H, Eosinophils (%) (Auto) 1.0, Basophils (%) ( Auto) 0.3, Neutrophils # (Auto) 4.9, Lymphocytes # (Auto) 0.8 L, Monocytes # ( Auto) 1.0 H, Eosinophils # (Auto) 0.1, Basophils # (Auto) 0.0 08/16/17 07:13 Red Blood Count 3.44 L, Mean Corpuscular Volume 96.5 H, Mean Corpuscular Hemoglobin 31.1, Mean Corpuscular Hemoglobin Concent 32.2, Red Cell Distribution Width 12.6, Neutrophils (%) (Auto) 57.4, Lymphocytes (%) (Auto) 24.5, Monocytes (%) (Auto) 15.3 H, Eosinophils (%) (Auto) 2.0, Basophils (%) ( Auto) 0.4, Neutrophils # (Auto) 3.2, Lymphocytes # (Auto) 1.4 L, Monocytes # ( Auto) 0.8, Eosinophils # (Auto) 0.1, Basophils # (Auto) 0.0, Calcium Level 8.0 L Vital Signs Date Time Temp Pulse Resp B/P (MAP) Pulse Ox O2 Delivery O2 Flow Rate FiO2 08/16/17 06:31 99.3 08/16/17 04:14 87 18 120/60 (80) 91 Room Air OSVALDO HORN MD Aug 16, 2017 08:22
[2017-08-16] MEDS: cefTRIAXone SOD 1 GM in D5W 50 ML IV SCH (09:06)
[2017-08-16] MEDS: ASPIRIN 81 MG ENTERIC TAB PO SCH (09:07)
[2017-08-16] MEDS: METOPROLOL TART 12.5 MG PER 1/2 TAB PO SCH (09:07)
[2017-08-16] MEDS: FAMOTIDINE 20 MG TAB PO SCH ×2 (09:07→19:54)
[2017-08-16] MEDS: POTASSIUM CHLORIDE 10 MEQ SR TABLET PO SCH (09:07)
[2017-08-16] MEDS: DIGOXIN 0.125 MG TAB PO SCH (09:07)
[2017-08-16] MEDS: VITAMIN D 1,000 INTERNATIONAL UNITS TABLET PO SCH (09:07)
[2017-08-16] MEDS: FUROSEMIDE 20 MG TAB PO SCH (09:08)
[2017-08-16] MEDS: SENNA 8.6 MG TAB (SENOKOT) PO SCH (09:08)
[2017-08-16 12:00] VITALS: BP 101/55
[2017-08-16 16:00] VITALS: BP 109/51
[2017-08-16] MEDS: WARFARIN SOD 5 MG TAB PO SCH (16:42)
[2017-08-16] MEDS: ATORVASTATIN 20 MG TAB PO SCH (19:54)
[2017-08-16 21:02] VITALS: BP 103/58
[2017-08-17] VITALS (7 sets, daily range): BP systolic 107–130; BP diastolic 51–71
[2017-08-17] MEDS: ACETAMINOPHEN TAB 650MG DOSE (2X325MG) PO PRN (01:25)
[2017-08-17] MEDS: traMADol 50 MG TAB PO PRN (01:26)
[2017-08-17 05:26] LABS: BASO % 0.5 % (0.0-1.0); EOS # 0.1 10^3/uL (0.0-0.50); EOS % 2.4 % (0.0-3.0); IMMATURE GRANULOCYTE % 0.3 % (0-0); LYMPH # 1.5 10^3/uL (1.5-4.5); LYMPH % 25.4 % (24.0-44.0); MEAN CORPUSCULAR HEMOGLOBIN 31.4 pg (27.0-33.0); MEAN CORPUSCULAR HGB CONC 32.8 g/dl (32.0-36.5); MEAN CORPUSCULAR VOLUME 95.6 fl (80.0-96.0); MONO # 0.9 10^3/uL (0.0-0.8); MONO % 15.3 % (0.0-5.0); NEUTROPHILS # 3.3 10^3/uL (1.8-7.7); NEUTROPHILS % 56.1 % (36.0-66.0); PLATELET COUNT, AUTOMATED 101 10^3/uL (150-450); RED CELL DISTRIBUTION WIDTH 12.3 % (11.5-14.5); WHITE BLOOD COUNT 5.8 10^3/uL (4.0-10.0)
[2017-08-17] MEDS: LEVOTHYROXINE 50MCG TABLET (0.05MG) PO SCH (05:31)
[2017-08-17] MEDS: SLF 3 ML SYR IV SCH ×3 (05:32→22:15)
[2017-08-17 05:47] LABS: CALCIUM LEVEL 8.2 MG/DL (8.8-10.2); CREATININE FOR GFR 1.16 MG/DL (0.55-1.02); POTASSIUM SERUM 4.2 MEQ/L (3.5-5.1)
[2017-08-17] MEDS: cefTRIAXone SOD 1 GM in D5W 50 ML IV SCH (08:29)
[2017-08-17] MEDS: ASPIRIN 81 MG ENTERIC TAB PO SCH (08:30)
[2017-08-17] MEDS: METOPROLOL TART 12.5 MG PER 1/2 TAB PO SCH (08:30)
[2017-08-17] MEDS: DIGOXIN 0.125 MG TAB PO SCH (08:31)
[2017-08-17] MEDS: SENNA 8.6 MG TAB (SENOKOT) PO SCH (08:31)
[2017-08-17] MEDS: POTASSIUM CHLORIDE 10 MEQ SR TABLET PO SCH (08:31)
[2017-08-17] MEDS: FAMOTIDINE 20 MG TAB PO SCH ×2 (08:31→22:15)
[2017-08-17] MEDS: VITAMIN D 1,000 INTERNATIONAL UNITS TABLET PO SCH (08:31)
[2017-08-17] MEDS: FUROSEMIDE 20 MG TAB PO SCH (08:31)
--- NOTE | 2017-08-17 09:30 | ECGEPIP ---
Stationary ECG Study [facility] - ED Test Date: 2017-08-15 Pat Name: MAGED LATIF Department: Room: - Gender: F Production Expediter: AF : [id number] Requested By: Radha Torres Order Number: [id number] Reading MD: Michael Tejada Measurements Intervals [place] Rate: 97 P: [place]: 0 QRS: 44 QRSD: 78 T: -42 QT: 333 QTc: 424 Interpretive Statements ATRIAL FIBRILLATION LOW QRS VOLTAGE IN EXTREMITY LEADS NSTTW ABNORMALITIES SIMILAR TO 11/27/16 Electronically Signed On 08-17-2017 9:30:33 EDT by Michael Tejada
--- NOTE | 2017-08-17 14:31 | IPN ---
DATE: 08/17/2017 Ms. Falk is feeling well this morning. She is standing at bedside upon my arrival with physical therapy. 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 No complaints of pain, chest pain or shortness of breath. Temperature 99.2. Pulse 85. Respiratory rate 17. Blood pressure 116/71. 90% on room air. Ins and outs notable for a negative fluid balance of -30. Body mass index 20.7. She is awake, appropriately interactive and pleasantly conversant. Short in stature. Breathing is symmetrical. I:E ratio is 1:3. Heart is distant sounding. Rate is at times tachycardic on the monitor. Abdomen soft, doughy, nontender. There is no significant lower extremity edema. White count 5.8, hemoglobin 10.6 and platelets 101. BUN 28, creatinine 1.16. ASSESSMENT: 86-year-old thought to have a transient ischemic attack (TIA) and possible urinary tract infection (UTI). PLAN: 1. TIA. Patient did have right upper extremity weakness upon presentation which has resolved. Patient has history of atrial fibrillation. INR was subtherapeutic at the time of presentation. It would be reasonable to recheck that today. 2. Patient is being treated empirically for a urinary tract infection based on the remarkable urinalysis (UA). Urine culture appeared to be contaminated, but my suspicion is that it is actually a urinary tract infection. Will continue with ceftriaxone. The patient is improving. 3. Patient has history of coronary artery disease, status post percutaneous coronary intervention (PCI). 4. Patient has history of chronic obstructive pulmonary disease (COPD). 5. Patient has history of pulmonary embolism (PE). 6. Patient has history of hypothyroidism, on Synthroid. 7. Patient has history of systolic and diastolic heart failure. 8. Patient has hypertension, reasonably well controlled for the current setting. 9. Deep vein thrombosis (DVT) prophylaxis is Coumadin. Will recheck INR.
[2017-08-17] MEDS: WARFARIN SOD 5 MG TAB PO SCH (16:31)
[2017-08-17] MEDS: ATORVASTATIN 20 MG TAB PO SCH (22:15)
[2017-08-18 04:00] VITALS: BP 131/62
[2017-08-18 05:32] LABS: BASO % 0.9 % (0.0-1.0); EOS # 0.2 10^3/uL (0.0-0.50); EOS % 4.6 % (0.0-3.0); IMMATURE GRANULOCYTE % 0.2 % (0-0); LYMPH # 1.6 10^3/uL (1.5-4.5); MEAN CORPUSCULAR HEMOGLOBIN 30.9 pg (27.0-33.0); MEAN CORPUSCULAR VOLUME 96.4 fl (80.0-96.0); MONO # 0.6 10^3/uL (0.0-0.8); NEUTROPHILS % 45.3 % (36.0-66.0); PLATELET COUNT, AUTOMATED 109 10^3/uL (150-450); RED CELL DISTRIBUTION WIDTH 12.4 % (11.5-14.5); WHITE BLOOD COUNT 4.4 10^3/uL (4.0-10.0)
[2017-08-18 05:45] LABS: INR 3.26
[2017-08-18 05:51] LABS: ANION GAP 7 MEQ/L (8-16); BLOOD UREA NITROGEN 24 MG/DL (7-18); CALCIUM LEVEL 8.2 MG/DL (8.8-10.2); CARBON DIOXIDE LEVEL 27 MEQ/L (21-32); CHLORIDE LEVEL 104 MEQ/L (98-107); CREATININE FOR GFR 0.92 MG/DL (0.55-1.02); GLOMERULAR FILTRATION RATE > 60.0 (>32); GLUCOSE, FASTING 98 MG/DL (83-110); POTASSIUM SERUM 4.4 MEQ/L (3.5-5.1); SODIUM LEVEL 138 MEQ/L (136-145)
[2017-08-18] MEDS: SLF 3 ML SYR IV SCH ×3 (05:53→20:35)
[2017-08-18] MEDS: ACETAMINOPHEN TAB 650MG DOSE (2X325MG) PO PRN (05:53)
[2017-08-18] MEDS: LEVOTHYROXINE 50MCG TABLET (0.05MG) PO SCH (05:53)
[2017-08-18 08:00] VITALS: BP 131/64
[2017-08-18] MEDS: cefTRIAXone SOD 1 GM in D5W 50 ML IV SCH (09:19)
[2017-08-18] MEDS: DIGOXIN 0.125 MG TAB PO SCH (09:20)
[2017-08-18] MEDS: POTASSIUM CHLORIDE 10 MEQ SR TABLET PO SCH (09:20)
[2017-08-18] MEDS: METOPROLOL TART 12.5 MG PER 1/2 TAB PO SCH (09:20)
[2017-08-18] MEDS: FAMOTIDINE 20 MG TAB PO SCH ×2 (09:20→20:35)
[2017-08-18] MEDS: VITAMIN D 1,000 INTERNATIONAL UNITS TABLET PO SCH (09:20)
[2017-08-18] MEDS: SENNA 8.6 MG TAB (SENOKOT) PO SCH (09:20)
[2017-08-18] MEDS: FUROSEMIDE 20 MG TAB PO SCH (09:21)
[2017-08-18] MEDS: ASPIRIN 81 MG ENTERIC TAB PO SCH (09:21)
[2017-08-18 12:00] VITALS: BP 114/65
[2017-08-18 16:35] VITALS: BP 97/52
--- NOTE | 2017-08-18 19:23 | IPN ---
DATE: 08/18/2017 Ms. Falk is feeling well this morning. She is more awake and interactive. Yesterday afternoon she was somewhat confused. Told me who the president was today. She knows quite clearly who the president is. Temperature 97.7 Pulse 69. Respiratory rate 18. Blood pressure 131/64. 95% on room air. Ins and outs notable for a positive fluid balance of 280. She is awake, appropriately interactive, pleasantly conversant, following commands. Neck supple. Breathing is symmetrical. Heart is distant sounding. Normal S1, S2. Abdomen soft, doughy, nontender. No significant lower extremity edema. She is of short stature. White count 4.4, hemoglobin 10.4 and platelets 109. BUN 24, creatinine 0.92. Blood cultures are negative at 72 hours. ASSESSMENT IS FOLLOWS: 86-year-old thought to have a transient ischemic attack (TIA) and possible urinary tract infection (UTI). PLAN: 1. Transient ischemic attack (TIA). Patient has right upper extremity weakness upon presentation which has resolved. Patient has history of atrial fibrillation. INR is 3.26 and quite elevated. We will hold Coumadin today. 2. Patient is being treated empirically for a urinary tract infection based on a remarkable urinalysis (UA). Urine culture appears to be contaminated, continuing with antibiotics which can be switched to oral today. 3. Patient has history of pulmonary embolism (PE). 4. Patient has hypothyroidism. 5. Patient has systolic and diastolic heart failure. 6. Patient has hypertension which is reasonably controlled for the current setting. Deep vein thrombosis prophylaxis is the supra therapeutic INR.
[2017-08-18 20:30] VITALS: BP 128/66
[2017-08-18] MEDS: CEFDINIR 300 MG CAP (OMNICEF) PO SCH (20:35)
[2017-08-18] MEDS: ATORVASTATIN 20 MG TAB PO SCH (20:35)
[2017-08-19 06:00] VITALS: BP 125/69
[2017-08-19] MEDS: SLF 3 ML SYR IV SCH ×3 (06:06→22:00)
[2017-08-19] MEDS: LEVOTHYROXINE 50MCG TABLET (0.05MG) PO SCH (06:08)
[2017-08-19 06:50] LABS: BASO % 0.7 % (0.0-1.0); EOS # 0.2 10^3/uL (0.0-0.50); EOS % 3.7 % (0.0-3.0); IMMATURE GRANULOCYTE % 0.5 % (0-0); LYMPH # 1.5 10^3/uL (1.5-4.5); LYMPH % 37.2 % (24.0-44.0); MEAN CORPUSCULAR HEMOGLOBIN 30.9 pg (27.0-33.0); MEAN CORPUSCULAR HGB CONC 31.8 g/dl (32.0-36.5); MEAN CORPUSCULAR VOLUME 97.2 fl (80.0-96.0); MONO # 0.5 10^3/uL (0.0-0.8); MONO % 13.1 % (0.0-5.0); NEUTROPHILS # 1.8 10^3/uL (1.8-7.7); NEUTROPHILS % 44.8 % (36.0-66.0); PLATELET COUNT, AUTOMATED 118 10^3/uL (150-450); RED CELL DISTRIBUTION WIDTH 12.4 % (11.5-14.5); WHITE BLOOD COUNT 4.1 10^3/uL (4.0-10.0)
[2017-08-19 07:08] LABS: ANION GAP 5 MEQ/L (8-16); BLOOD UREA NITROGEN 19 MG/DL (7-18); CALCIUM LEVEL 8.5 MG/DL (8.8-10.2); CARBON DIOXIDE LEVEL 33 MEQ/L (21-32); CHLORIDE LEVEL 103 MEQ/L (98-107); CREATININE FOR GFR 0.93 MG/DL (0.55-1.02); GLOMERULAR FILTRATION RATE > 60.0 (>32); GLUCOSE, FASTING 93 MG/DL (83-110); POTASSIUM SERUM 4.2 MEQ/L (3.5-5.1); SODIUM LEVEL 141 MEQ/L (136-145)
[2017-08-19 07:14] LABS: INR 4.17
[2017-08-19 08:20] VITALS: BP 124/58
[2017-08-19] MEDS: SENNA 8.6 MG TAB (SENOKOT) PO SCH (08:20)
[2017-08-19] MEDS: FAMOTIDINE 20 MG TAB PO SCH ×2 (08:20→20:41)
[2017-08-19] MEDS: POTASSIUM CHLORIDE 10 MEQ SR TABLET PO SCH (08:20)
[2017-08-19] MEDS: METOPROLOL TART 12.5 MG PER 1/2 TAB PO SCH (08:21)
[2017-08-19] MEDS: FUROSEMIDE 20 MG TAB PO SCH (08:21)
[2017-08-19] MEDS: ASPIRIN 81 MG ENTERIC TAB PO SCH (08:21)
[2017-08-19] MEDS: DIGOXIN 0.125 MG TAB PO SCH (08:21)
[2017-08-19] MEDS: CEFDINIR 300 MG CAP (OMNICEF) PO SCH ×2 (08:21→20:41)
[2017-08-19] MEDS: VITAMIN D 1,000 INTERNATIONAL UNITS TABLET PO SCH (08:22)
[2017-08-19 14:00] VITALS: BP 104/62
[2017-08-19 20:00] VITALS: BP 124/60
[2017-08-19] MEDS: ATORVASTATIN 20 MG TAB PO SCH (20:41)
--- NOTE | 2017-08-19 22:50 | IPN ---
DATE: 08/19/2017 Ms. Falk is feeling well today. There are no complaints of pain, chest pain, shortness of breath. Her daughter has been in to see her already upon my arrival at around 8 a.m. this morning. Has complaints of difficulty with sleep, although she was apparently quite confused last night. Temperature is 98.6, pulse 71, respirations 18, blood pressure 125/69, 98% on room air. Intake and output notable for a positive fluid balance of 535. No bowel movements noted. Body mass index 20.5. She is awake, appropriately interactive, pleasantly conversant. She knows who the president is. She knows she is in the hospital. Mucous membranes moist. Neck supple. Breathing symmetrical. Coarse upper airway sounds. No wheezes, rales, or rhonchi. No accessory muscle use. Speaking in complete sentences. Heart is distant sounding. Normal S1, S2. Radial pulses 2+. Abdomen soft, doughy, nontender, somewhat tympanic. White cell count 4.1, hemoglobin 10.9, and platelets of 118. BUN 19, creatinine 0.93. ASSESSMENT: This is an 86-year-old thought to have transient ischemic attacks (TIA) and possible urinary tract infection (UTI). PLAN: 1. TIA. Patient is totally recovered from this. INR continues to be quite elevated. Continue to hold Coumadin. No evidence of bleeding. 2. Patient has been treated for UTI empirically. Is improving on oral antibiotics. 3. Patient has history of pulmonary embolism. 4. Patient has hypothyroidism. 5. Patient has history of systolic and diastolic heart failure. 6. Patient has had metabolic encephalopathy and will be monitored in the hospital for another day. Plan will be to discharge her tomorrow. Family has excellent home care plan starting tomorrow, for which they can provide 24-hour care at least over the weekend.
[2017-08-20 06:00] VITALS: BP 112/54
[2017-08-20] MEDS: SLF 3 ML SYR IV SCH ×2 (06:00→09:48)
[2017-08-20] MEDS: LEVOTHYROXINE 50MCG TABLET (0.05MG) PO SCH (06:30)
[2017-08-20 07:05] LABS: BASO % 0.9 % (0.0-1.0); EOS # 0.2 10^3/uL (0.0-0.50); EOS % 3.9 % (0.0-3.0); IMMATURE GRANULOCYTE % 0.5 % (0-0); LYMPH # 1.6 10^3/uL (1.5-4.5); LYMPH % 35.5 % (24.0-44.0); MEAN CORPUSCULAR HEMOGLOBIN 31.3 pg (27.0-33.0); MEAN CORPUSCULAR HGB CONC 33.1 g/dl (32.0-36.5); MEAN CORPUSCULAR VOLUME 94.5 fl (80.0-96.0); MONO # 0.6 10^3/uL (0.0-0.8); MONO % 14.4 % (0.0-5.0); NEUTROPHILS % 44.8 % (36.0-66.0); PLATELET COUNT, AUTOMATED 140 10^3/uL (150-450); RED CELL DISTRIBUTION WIDTH 12.1 % (11.5-14.5); WHITE BLOOD COUNT 4.4 10^3/uL (4.0-10.0)
[2017-08-20 07:14] LABS: INR 3.89
[2017-08-20 07:20] LABS: CALCIUM LEVEL 8.6 MG/DL (8.8-10.2); CREATININE FOR GFR 0.96 MG/DL (0.55-1.02); GLOMERULAR FILTRATION RATE 58.5 (>32); POTASSIUM SERUM 4.2 MEQ/L (3.5-5.1)
[2017-08-20 08:28] VITALS: BP 93/52
[2017-08-20] MEDS: METOPROLOL TART 12.5 MG PER 1/2 TAB PO SCH (08:28)
[2017-08-20] MEDS: FUROSEMIDE 20 MG TAB PO SCH (08:28)
[2017-08-20] MEDS: POTASSIUM CHLORIDE 10 MEQ SR TABLET PO SCH (08:32)
[2017-08-20] MEDS: ASPIRIN 81 MG ENTERIC TAB PO SCH (08:32)
[2017-08-20] MEDS: SENNA 8.6 MG TAB (SENOKOT) PO SCH (08:32)
[2017-08-20] MEDS: FAMOTIDINE 20 MG TAB PO SCH (08:32)
[2017-08-20] MEDS: VITAMIN D 1,000 INTERNATIONAL UNITS TABLET PO SCH (08:32)
[2017-08-20] MEDS: DIGOXIN 0.125 MG TAB PO SCH (08:33)
[2017-08-20] MEDS: CEFDINIR 300 MG CAP (OMNICEF) PO SCH (08:33)
[2017-08-20] MEDS ORDERED: CEFD300CAP PO (10:02)
--- NOTE | 2017-08-23 17:41 | DSES ---
DATE OF ADMISSION: 08/15/2017 DATE OF DISCHARGE: 08/20/2017 PROCEDURE PERFORMED DURING STAY: None. COMPLICATIONS DURING STAY: None. SPECIALIST INVOLVED DURING STAY: None. DISCHARGE DIAGNOSES: Transient ischemic attack (TIA). Urinary tract infection with culture negative. L1-L3 compression fracture with abdominal binder. Atrial fibrillation, rate controlled on Coumadin. Coronary artery disease status post percutaneous coronary intervention (PCI). Chronic obstructive pulmonary disease. History of pulmonary embolism (PE). Hypothyroidism. Chronic systolic and diastolic heart failure. Hypertension. Metabolic encephalopathy. SUMMARY OF HOSPITALIZATION: This is an 86-year-old who presented with right upper extremity weakness. It had resolved early in her stay. INR was subtherapeutic at the time of presentation and she was thought to have a urinary tract infection. She was admitted to the hospitalist service and was monitored clinically. Seen by physical therapy and improved. INR became supratherapeutic. On the day of discharge, she is feeling well. She has no complaints of pain, chest pain, shortness of breath, has been tolerating a diet. Temperature is 97.9, pulse 70, respiratory rate 18, blood pressure 112/54, 98% on room air. She is awake, alert, appropriately interactive, pleasantly conversant. Breathing symmetrical and rested. Heart is in regular rhythm. Abdomen is soft, doughy, non-tender. She is noted to have a white cell count of 4.4, hemoglobin 10.9, INR is 3.89 and creatinine is 0.9. DISCHARGE INSTRUCTIONS INCLUDE THE FOLLOWING: Follow up with Dr. yRan within one week. Diet and activity as tolerated. Cefdinir 300 mg by mouth twice daily for four more doses. Tylenol 500 mg by mouth as needed for pain. Albuterol two puffs inhaled four times a day. Aspirin 81 mg by mouth daily. Atorvastatin 20 mg by mouth every evening. Vitamin D supplement. Condition on discharge liver oil as deemed clinically necessary. Digoxin 0.125 mg by mouth daily. Breo Ellipta one puff inhaled daily. Lasix 20 mg by mouth daily. Synthroid 50 mcg by mouth every morning. Metoprolol tartrate 12.5 mg by mouth daily. Percocet one tablet by mouth every 6 hours as needed for pain. Vitamin K daily as needed. KCL 20 mEq by mouth daily. Zantac 150 mg by mouth twice daily. Laxative as needed. Coumadin to restart in two days. She will need to follow up with Dr. Ryan for her home INR to be done tomorrow. She does home INRs, which can be started two days from now.
== END 2017-08-20 12:50 | disposition home or self-care (01) | DRG 689 ==
LOC: EDBD 11:27 → M ED 11:27 → M ED INP 15:54 → M PCU 17:46 → M MS4PR 08-18 16:21
PROVIDERS: ADMIT Internal Medicine; ATTEND Internal Medicine
DX: N39.0 Urinary tract infection, site not specified (principal); G93.41 Metabolic encephalopathy; G45.9 Transient cerebral ischemic attack, unspecified; I50.40 Unspecified combined systolic (congestive) and diastolic (congestive) heart failure; I13.0 Hypertensive heart and chronic kidney disease with heart failure and stage 1 through stage 4 chronic kidney disease, or unspecified chronic kidney disease; N18.3 Chronic kidney disease, stage 3 (moderate); E03.9 Hypothyroidism, unspecified; M80.08XD Age-related osteoporosis with current pathological fracture, vertebra(e), subsequent encounter for fracture with routine healing; I48.91 Unspecified atrial fibrillation; J44.9 Chronic obstructive pulmonary disease, unspecified; I25.10 Atherosclerotic heart disease of native coronary artery without angina pectoris; Z86.711 Personal history of pulmonary embolism; Z98.41 Cataract extraction status, right eye; Z98.42 Cataract extraction status, left eye; Z95.9 Presence of cardiac and vascular implant and graft, unspecified; Z79.82 Long term (current) use of aspirin; Z79.52 Long term (current) use of systemic steroids; Z79.899 Other long term (current) drug therapy; Z88.8 Allergy status to other drugs, medicaments and biological substances; Z91.09 Other allergy status, other than to drugs and biological substances

== ENCOUNTER 2017-11-24 12:06 | Emergency (ER) | payer MEDICARE ==
[2017-11-24] MEDS: ACETAMINOPHEN 325 MG TAB PO (14:00)
[2017-11-24] MEDS: ONDANSETRON 4MG/2ML VIAL (J2405) IV (14:00)
[2017-11-24 14:06] LABS: AMORPHOUS SEDIMENT RFX SMALL (NEGATIVE); KETONE, URINE AUTO RFX NEGATIVE (NEGATIVE); LEUKOCYTE ESTERASE UR AUTO RFX TRACE (NEGATIVE); NITRITE, URINE AUTO RFX NEGATIVE (NEGATIVE); RBC, URINE AUTO RFX 61 /HPF (0-3); SPECIFIC GRAVITY UR AUTO RFX 1.019 (1.002-1.035); SQUAM EPITHELIAL CELL UR AURFX 0 /HPF (0-6); WBC, URINE AUTO RFX 26 /HPF (0-3)
[2017-11-24 14:29] LABS: BASO % 0.6 % (0.0-1.0); EOS % 0.4 % (0.0-3.0); HEMATOCRIT 38.4 % (36.0-47.0); HEMOGLOBIN 12.5 g/dl (12.0-16.0); IMMATURE GRANULOCYTE % 0.6 % (0-0); LYMPH # 0.5 10^3/uL (1.5-4.5); LYMPH % 9.5 % (24.0-44.0); MEAN CORPUSCULAR HEMOGLOBIN 30.3 pg (27.0-33.0); MEAN CORPUSCULAR HGB CONC 32.6 g/dl (32.0-36.5); MEAN CORPUSCULAR VOLUME 93.2 fl (80.0-96.0); MONO # 0.6 10^3/uL (0.0-0.8); MONO % 12.2 % (0.0-5.0); NEUTROPHILS # 3.6 10^3/uL (1.8-7.7); NEUTROPHILS % 76.7 % (36.0-66.0); PLATELET COUNT, AUTOMATED 121 10^3/uL (150-450); RED BLOOD COUNT 4.12 10^6/uL (4.00-5.40); RED CELL DISTRIBUTION WIDTH 12.9 % (11.5-14.5); WHITE BLOOD COUNT 4.8 10^3/uL (4.0-10.0)
[2017-11-24 14:34] LABS: INR 1.59; PROTHROMBIN TIME 19.4 SECONDS (12.4-14.5)
[2017-11-24] MEDS: NS 500 ML IV (15:00)
[2017-11-24 15:01] LABS: ALBUMIN/GLOBULIN RATIO 0.91 (1.00-1.93); ALKALINE PHOSPHATASE 101 U/L (45-117); ALT/SGPT 32 U/L (12-78); ANION GAP 6 MEQ/L (8-16); AST/SGOT 43 U/L (7-37); BILIRUBIN,DIRECT 0.1 MG/DL (0.0-0.2); BILIRUBIN,TOTAL 0.5 MG/DL (0.2-1.0); BLOOD UREA NITROGEN 21 MG/DL (7-18); CALCIUM LEVEL 8.9 MG/DL (8.8-10.2); CARBON DIOXIDE LEVEL 29 MEQ/L (21-32); CHLORIDE LEVEL 104 MEQ/L (98-107); CREATININE FOR GFR 1.23 MG/DL (0.55-1.30); DIGOXIN LEVEL 0.9 NG/ML (0.5-2.0); GLUCOSE, FASTING 106 MG/DL (70-100); LIPASE 148 U/L (73-393); POTASSIUM SERUM 4.2 MEQ/L (3.5-5.1); SODIUM LEVEL 139 MEQ/L (136-145); TOTAL PROTEIN 8.4 GM/DL (6.4-8.2)
[2017-11-24 15:09] LABS: INFLUENZA A AMPLIFICATION NEGATIVE (NEGATIVE); INFLUENZA B AMPLIFICATION POSITIVE (NEGATIVE)
== END 2017-11-24 16:46 | disposition home or self-care (01) ==
LOC: M ED 12:06
DX: J10.1 Influenza due to other identified influenza virus with other respiratory manifestations (principal); N39.0 Urinary tract infection, site not specified; I50.9 Heart failure, unspecified; I25.2 Old myocardial infarction; E78.4 Other hyperlipidemia; E03.9 Hypothyroidism, unspecified; J44.9 Chronic obstructive pulmonary disease, unspecified; Z95.0 Presence of cardiac pacemaker; Z98.61 Coronary angioplasty status; Z79.01 Long term (current) use of anticoagulants
CPT/HCPCS: J2405

== ENCOUNTER 2017-11-29 22:10 | Emergency (ER) | payer MEDICARE ==
[2017-11-29] MEDS: NS 500 ML IV (23:15)
[2017-11-29 23:28] LABS: HEMATOCRIT 34.8 % (36.0-47.0); HEMOGLOBIN 11.3 g/dl (12.0-16.0); MEAN CORPUSCULAR HEMOGLOBIN 30.4 pg (27.0-33.0); MEAN CORPUSCULAR HGB CONC 32.5 g/dl (32.0-36.5); MEAN CORPUSCULAR VOLUME 93.5 fl (80.0-96.0); RED BLOOD COUNT 3.72 10^6/uL (4.00-5.40); WHITE BLOOD COUNT 2.6 10^3/uL (4.0-10.0)
[2017-11-29 23:35] LABS: ADD MANUAL DIFFER YES; DIFF SLIDE NUMBER 371; PLATELET COUNT, AUTOMATED 89 10^3/uL (150-450); POSITIVE DIFF POS FLAG; POSITIVE MORPH POS FLAG
[2017-11-29 23:36] LABS: IMMATURE PLATELET FRACTION % 2.5 % (0.0-9.6)
[2017-11-29 23:44] LABS: PARTIAL THROMBOPLASTIN TIME 38.3 SECONDS (26.8-37.9)
[2017-11-29 23:52] LABS: ANION GAP 4 MEQ/L (8-16); BLOOD UREA NITROGEN 23 MG/DL (7-18); CALCIUM LEVEL 7.6 MG/DL (8.8-10.2); CARBON DIOXIDE LEVEL 31 MEQ/L (21-32); CHLORIDE LEVEL 105 MEQ/L (98-107); CPK CREATINE PHOSPHOKINASE 76 U/L (26-192); GLUCOSE, FASTING 102 MG/DL (70-100); POTASSIUM SERUM 4.5 MEQ/L (3.5-5.1); SODIUM LEVEL 140 MEQ/L (136-145); TROPONIN I < 0.02 NG/ML (< 0.10)
[2017-11-30 00:02] LABS: DIGOXIN LEVEL 0.8 NG/ML (0.5-2.0); MB/CK RELATIVE INDEX 1.31 (< OR =4)
[2017-11-30 00:15] LABS: EOSINOPHILS 4 % (0-5); LYMPHOCYTES 56 % (16-52); MONOCYTES 10 % (0-8); NEUTROPHILS 30 % (35-75); PLATELET CLUMPS SMALL AMT; PLATELET ESTIMATE DECREASED (NORMAL)
[2017-11-30 00:28] LABS: INR 2.03; PROTHROMBIN TIME 23.6 SECONDS (12.4-14.5)
[2017-11-30] MEDS: CALCIUM/VITAMIN D 500 MG TAB PO (03:30)
== END 2017-11-30 03:59 | disposition home or self-care (01) ==
LOC: M ED 11-30 03:59
DX: R00.2 Palpitations (principal); R42 Dizziness and giddiness; E83.51 Hypocalcemia; I25.10 Atherosclerotic heart disease of native coronary artery without angina pectoris; I48.91 Unspecified atrial fibrillation; Z95.0 Presence of cardiac pacemaker; Z79.899 Other long term (current) drug therapy; Z79.82 Long term (current) use of aspirin; Z79.51 Long term (current) use of inhaled steroids; Z79.01 Long term (current) use of anticoagulants; Z79.890 Hormone replacement therapy; Z88.5 Allergy status to narcotic agent; Z88.8 Allergy status to other drugs, medicaments and biological substances; Z91.048 Other nonmedicinal substance allergy status; J30.89 Other allergic rhinitis
CPT/HCPCS: 93005

== ENCOUNTER 2018-03-17 15:18 | Emergency (ER) | payer MEDICARE ==
[2018-03-17] MEDS: ACETAMINOPHEN TAB 650MG DOSE (2X325MG) PO (16:09)
[2018-03-17] MEDS: LIDOCAINE 5% (LIDODERM) PATCH TD (17:35)
== END 2018-03-17 17:37 | disposition home or self-care (01) ==
LOC: M ED 15:18
DX: M54.5 Low back pain (principal); G89.29 Other chronic pain; I48.91 Unspecified atrial fibrillation; I50.9 Heart failure, unspecified; N18.3 Chronic kidney disease, stage 3 (moderate); J44.9 Chronic obstructive pulmonary disease, unspecified; Z86.73 Personal history of transient ischemic attack (TIA), and cerebral infarction without residual deficits; Z86.711 Personal history of pulmonary embolism; Z95.0 Presence of cardiac pacemaker; Z91.048 Other nonmedicinal substance allergy status; Z88.8 Allergy status to other drugs, medicaments and biological substances; Z79.899 Other long term (current) drug therapy; Z79.82 Long term (current) use of aspirin; Z79.01 Long term (current) use of anticoagulants; Z87.81 Personal history of (healed) traumatic fracture
CPT/HCPCS: 72110

== ENCOUNTER → 2018-03-24 | Outpatient (REF) | payer MEDICARE ==
[2018-03-25 15:23] LABS: DIGOXIN LEVEL 0.6 NG/ML (0.5-2.0)
== END ==
LOC: M LAB REF 14:26
DX: I48.2 Chronic atrial fibrillation (principal)
CPT/HCPCS: 80162

== ENCOUNTER 2018-03-25 21:19 | Emergency (ER) | payer MEDICARE ==
[2018-03-25 23:41] LABS: BASO % 0.6 % (0.0-1.0); EOS # 0.1 10^3/uL (0.0-0.50); EOS % 1.7 % (0.0-3.0); HEMATOCRIT 39.6 % (36.0-47.0); HEMOGLOBIN 13.1 g/dl (12.0-15.5); IMMATURE GRANULOCYTE % 0.5 % (0-3.0); LYMPH # 1.6 10^3/uL (1.5-4.5); LYMPH % 24.6 % (24.0-44.0); MEAN CORPUSCULAR HGB CONC 33.1 g/dl (32.0-36.5); MEAN CORPUSCULAR VOLUME 93.8 fl (80.0-96.0); MONO # 0.8 10^3/uL (0.0-0.8); MONO % 11.9 % (0.0-5.0); NEUTROPHILS # 3.9 10^3/uL (1.8-7.7); NEUTROPHILS % 60.7 % (36.0-66.0); PLATELET COUNT, AUTOMATED 178 10^3/uL (150-450); RED BLOOD COUNT 4.22 10^6/uL (4.00-5.40); RED CELL DISTRIBUTION WIDTH 12.6 % (11.5-14.5); WHITE BLOOD COUNT 6.5 10^3/uL (4.0-10.0)
[2018-03-25] MEDS: LORazepam 2 MG/ML VIAL (J2060) IV (23:42)
[2018-03-25] MEDS: LIDOCAINE 5% (LIDODERM) PATCH TD (23:43)
[2018-03-25 23:49] LABS: KETONE, URINE AUTO RFX NEGATIVE (NEGATIVE); LEUKOCYTE ESTERASE UR AUTO RFX NEGATIVE (NEGATIVE); NITRITE, URINE AUTO RFX NEGATIVE (NEGATIVE); RBC, URINE AUTO RFX 5 /HPF (0-3); SPECIFIC GRAVITY UR AUTO RFX 1.008 (1.002-1.035); SQUAM EPITHELIAL CELL UR AURFX 0 /HPF (0-6); WBC, URINE AUTO RFX 0 /HPF (0-3)
[2018-03-26 00:12] LABS: PROTHROMBIN TIME 24.3 SECONDS (12.4-14.5)
[2018-03-26 00:26] LABS: ALBUMIN 3.9 GM/DL (3.2-5.2); ALBUMIN/GLOBULIN RATIO 0.91 (1.00-1.93); ALKALINE PHOSPHATASE 98 U/L (45-117); ALT/SGPT 26 U/L (12-78); ANION GAP 5 MEQ/L (8-16); AST/SGOT 36 U/L (7-37); BILIRUBIN,DIRECT 0.2 MG/DL (0.0-0.2); BILIRUBIN,TOTAL 0.5 MG/DL (0.2-1.0); BLOOD UREA NITROGEN 25 MG/DL (7-18); CALCIUM LEVEL 8.8 MG/DL (8.8-10.2); CARBON DIOXIDE LEVEL 31 MEQ/L (21-32); CHLORIDE LEVEL 103 MEQ/L (98-107); CREATININE FOR GFR 1.04 MG/DL (0.55-1.30); GLOMERULAR FILTRATION RATE 53.2 (>32); GLUCOSE, FASTING 107 MG/DL (70-100); LIPASE 178 U/L (73-393); POTASSIUM SERUM 4.6 MEQ/L (3.5-5.1); SODIUM LEVEL 139 MEQ/L (136-145); TOTAL PROTEIN 8.2 GM/DL (6.4-8.2)
[2018-03-26] MEDS ORDERED: **NOTE PATIENT COMMENT** MISC XX (21:00)
== END 2018-03-26 02:15 | disposition home or self-care (01) ==
LOC: M ED 03-26 02:15
DX: G89.29 Other chronic pain (principal); M54.5 Low back pain; J30.89 Other allergic rhinitis; Z79.01 Long term (current) use of anticoagulants; Z79.82 Long term (current) use of aspirin; Z79.899 Other long term (current) drug therapy; Z88.5 Allergy status to narcotic agent; Z88.8 Allergy status to other drugs, medicaments and biological substances; Z91.89 Other specified personal risk factors, not elsewhere classified
CPT/HCPCS: J2060

== ENCOUNTER → 2018-05-11 | Outpatient (REF) | payer MEDICARE ==
[2018-05-11 19:59] LABS: DIGOXIN LEVEL 0.7 NG/ML (0.5-2.0)
== END ==
LOC: M LAB REF 17:43
DX: Z51.81 Encounter for therapeutic drug level monitoring (principal); I48.91 Unspecified atrial fibrillation; Z79.01 Long term (current) use of anticoagulants
CPT/HCPCS: 80162

== ENCOUNTER → 2018-07-20 | Outpatient (CLI) | payer MEDICARE | LOC: M LAB 12:17 | DX: R91.8 Other nonspecific abnormal finding of lung field (principal); J47.9 Bronchiectasis, uncomplicated ==

== ENCOUNTER → 2018-08-10 | Outpatient (REF) | payer MEDICARE ==
[2018-08-10 13:44] LABS: DIGOXIN LEVEL 0.9 NG/ML (0.5-2.0)
== END ==
LOC: M LAB REF 12:07
DX: I48.91 Unspecified atrial fibrillation (principal); Z51.81 Encounter for therapeutic drug level monitoring; Z79.899 Other long term (current) drug therapy
CPT/HCPCS: 80162

== ENCOUNTER → 2018-11-10 | Outpatient (CLI) | payer MEDICARE ==
[~2018-11-10] MED LIST changes: +ATIV1TAB10 PO; +BENZ-18 PO; -BENZ100C5 PO; +BREO1INH INH; +CEFD300CAP PO; -CODCAP PO; +CODCAP4 PO; +DULO1CAP2; +KEFL500C17 PO; +KLOR10TA76 PO; -LANO1TAB23 PO; +LANO62.5 PO; +LIDO5DIS41 TD; +MIRA3350 PO; +OSEL75CA PO; +OXYC1TAB23 PO; -POTA10CA PO; +QUET1TAB7; +SENN8.6T17 PO; +VITA-112 PO; +VITA2000 PO
--- NOTE | 2018-11-10 10:30 | REP ---
CT Head without contrast HISTORY: Altered mental status COMPARISON: 08/16/2017 Areas of decreased attenuation are present in the periventricular white matter. This represents small-vessel ischemic disease. There is no intraparenchymal hemorrhage, acute infarct, mass or midline shift. The ventricular system the ventricular system and cortical sulci as well as subarachnoid space in the posterior fossa are dilated consistent with moderate volume loss. There is no extra cerebral collection. There is no fracture. The visualized sinuses are clear. The 2 mm metallic density is present in the medial aspect of the left lobe. IMPRESSION: 1. Small vessel ischemic disease. 2. Moderate volume loss. 3. There is a 2 mm metallic density in the medial aspect of the left lobe. This may represent a possible foreign body. Electronically Signed by Brennon Muñoz MD 11/10/2018 10:22 A
== END ==
LOC: M RAD 09:47
PROVIDERS: ATTEND Psychiatry & Neurology Neurology
DX: R41.82 Altered mental status, unspecified (principal); G31.83 Neurocognitive disorder with Lewy bodies; R90.89 Other abnormal findings on diagnostic imaging of central nervous system

== ENCOUNTER 2019-01-11 18:06 | Emergency (ER) | payer MEDICARE ==
[~2019-01-11] VITALS: Ht 147.3 cm; Wt 45.5 kg
[2019-01-11 18:58] LABS: BASO % 0.4 % (0.0-1.0); EOS # 0.1 10^3/uL (0.0-0.50); HEMATOCRIT 35.6 % (36.0-47.0); HEMOGLOBIN 11.6 g/dl (12.0-15.5); LYMPH # 1.1 10^3/uL (1.5-4.5); LYMPH % 18.7 % (24.0-44.0); MEAN CORPUSCULAR HGB CONC 32.6 g/dl (32.0-36.5); MEAN CORPUSCULAR VOLUME 95.2 fl (80.0-96.0); MONO # 0.6 10^3/uL (0.0-0.8); NEUTROPHILS # 3.8 10^3/uL (1.8-7.7); NEUTROPHILS % 67.5 % (36.0-66.0); PLATELET COUNT, AUTOMATED 173 10^3/uL (150-450); RED BLOOD COUNT 3.74 10^6/uL (4.00-5.40); WHITE BLOOD COUNT 5.6 10^3/uL (4.0-10.0)
[2019-01-11 19:08] LABS: INR 1.93; PROTHROMBIN TIME 22.4 SECONDS (12.1-14.4)
[2019-01-11 19:19] LABS: ALBUMIN 3.4 GM/DL (3.2-5.2); BILIRUBIN,DIRECT 0.1 MG/DL (0.0-0.2); BILIRUBIN,TOTAL 0.4 MG/DL (0.2-1.0); CALCIUM LEVEL 8.5 MG/DL (8.8-10.2); CREATININE FOR GFR 1.25 MG/DL (0.55-1.30); POTASSIUM SERUM 4.3 MEQ/L (3.5-5.1); TOTAL PROTEIN 7.6 GM/DL (6.4-8.2)
[2019-01-11] MEDS: GASTROGRAFIN SOLUTION 30ML PO SCH ×2 (20:32→21:08)
[2019-01-11] MEDS ORDERED: ISOVUE-370 76% 125ML VIAL (Q9967 PER ML) As Ordered ONE (21:49)
--- NOTE | 2019-01-11 22:55 | REPVR ---
EXAM: CT Abdomen and Pelvis With Contrast EXAM DATE/TIME: 01/11/2019 10:06 PM CLINICAL HISTORY: 88 years old, female; Pain; Abdominal pain; Generalized; Prior surgery TECHNIQUE: Imaging protocol: Axial computed tomography images of the abdomen and pelvis with intravenous contrast. Coronal and sagittal reformatted images were created and reviewed. Radiation optimization: All CT scans at this facility use at least one of these dose optimization techniques: automated exposure control; mA and/or kV adjustment per patient size (includes targeted exams where dose is matched to clinical indication); or iterative reconstruction. Contrast material: isovue 370 Contrast volume: 100 ml Contrast route: iv COMPARISON: CT ABD PELVIS WITH CONTRAST 09/13/2015 7:15 PM FINDINGS: Lower thorax: Small bilateral pleural effusions, left larger than right. Bilateral lower lobe atelectasis and/or scar. Cardiomegaly, unchanged. Cardiac pacing device with battery pack in the left anterior abdominal wall. ABDOMEN: Liver: Unremarkable. No mass. Gallbladder and bile ducts: Unremarkable. No calcified stones. No ductal dilation. Pancreas: Unremarkable. No ductal dilation. Spleen: Calcified granulomas within the spleen. Adrenals: Normal. No mass. Kidneys and ureters: Left renal cyst measuring 2.3 cm. unremarkable right kidney. No hydronephrosis. Stomach and bowel: Unremarkable. No obstruction. No mucosal thickening. Appendix: No evidence of appendicitis. PELVIS: Bladder: Unremarkable as visualized. Reproductive: Unremarkable as visualized. ABDOMEN and PELVIS: Intraperitoneal space: Unremarkable. No free air. No significant fluid collection. Bones/joints: Diffuse osteopenia. Old compression fracture deformities of T11, L1, L3, and L4. 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 Vertebral infection is not completely excluded. No paraspinal mass is identified. Degenerative arthrosis of both hips. Soft tissues: Unremarkable. Vasculature: Unremarkable. No abdominal aortic aneurysm. Lymph nodes: Unremarkable. No enlarged lymph nodes. IMPRESSION: 1. Small bilateral pleural effusions and bilateral lower lobe atelectasis and/or scar. 2. No acute abdominal or pelvic abnormality. 3. Old compression fracture deformities of T11, L1, L3, and L4. 4. Compression fracture deformity of T12 with generalized increased density in the compressed vertebral body and collapse of the superior endplate with gas in the superior endplate and disc space. 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 Underlying vertebral infection is not excluded. Electronically signed by: Alirio Beatty On 01/11/2019 22:54:42 PM
[2019-01-11] MEDS ORDERED: MIRA3350 PO (23:05)
[2019-01-11 23:35] VITALS: BP 136/83
--- NOTE | 2019-01-13 10:38 | ED PDOC ---
Post-Departure Follow-Up dr browning faxed formal report of ct abd/p for fu Ramu Hare MD Jan 13, 2019 10:38
== END 2019-01-11 23:35 | disposition home or self-care (01) ==
LOC: M ED 18:06
DX: K64.8 Other hemorrhoids (principal); K59.00 Constipation, unspecified; I12.9 Hypertensive chronic kidney disease with stage 1 through stage 4 chronic kidney disease, or unspecified chronic kidney disease; N18.3 Chronic kidney disease, stage 3 (moderate); I50.9 Heart failure, unspecified; I48.91 Unspecified atrial fibrillation; I25.10 Atherosclerotic heart disease of native coronary artery without angina pectoris; Z95.5 Presence of coronary angioplasty implant and graft; Z79.899 Other long term (current) drug therapy; Z79.82 Long term (current) use of aspirin; Z79.01 Long term (current) use of anticoagulants; Z88.5 Allergy status to narcotic agent; Z88.8 Allergy status to other drugs, medicaments and biological substances; Z91.048 Other nonmedicinal substance allergy status; J30.89 Other allergic rhinitis
CPT/HCPCS: 36415; 74177; 80048; 80076; 83690; 85025; 85610; 86850; 86870; 86900; 86901; 93041; 99285; Q9963; Q9967

== ENCOUNTER 2019-02-24 17:41 | Emergency (ER) | payer MEDICARE ==
[~2019-02-24] VITALS: Ht 147.3 cm; Wt 42.7 kg
[~2019-02-24 17:41] MED LIST changes: -/ADVA50050; -/TIOT18INH; -/TIOT18INH INH; -/WARF25TA; -/WARF25TA OR; -/WARF5TA; +ADVA1AER2; -ASPI1TAB PO; +ASPI81TA26 PO; +COUM1TAB17; +COUM1TAB18; +COUM1TAB18 OR; +HYDR-3715 PO; +METO-1 OR; -NORCOTAB PO; +SPIR1CAP; +SPIR1CAP INH; -TOPR25TA OR
[2019-02-24] MEDS ORDERED: MECLIZINE 12.5 MG TAB PO ONE (19:00)
--- NOTE | 2019-02-24 20:01 | REPVR ---
EXAM: CT Head Without Contrast EXAM DATE/TIME: 02/24/2019 7:09 PM CLINICAL HISTORY: 88 years old, female; Injury or trauma; Fall; Initial encounter; Blunt trauma (contusions or hematomas); Additional info: Altered mental status TECHNIQUE: Imaging protocol: Axial computed tomography images of the head/brain without contrast. Radiation optimization: All CT scans at this facility use at least one of these dose optimization techniques: automated exposure control; mA and/or kV adjustment per patient size (includes targeted exams where dose is matched to clinical indication); or iterative reconstruction. COMPARISON: CT Head without contrast 11/10/2018 10:09 AM FINDINGS: Brain: No intracranial mass, focal mass effect or midline shift. No acute intracranial hemorrhage. Mild decreased attenuation in periventricular/centrum semiovale white matter. No focal effacement of cortical sulci to indicate acute cortical infarct. Ventricles: Prominent ventricles and CSF spaces suggest parenchymal volume loss. Bones/joints: No calvarial fracture or destructive process. Sinuses: Visualized paranasal sinuses are unremarkable. Mastoid air cells: Mastoid air cells are normally aerated. Orbits: Visualized globes and orbits are unremarkable. Soft tissues: No focal extracranial soft tissue swelling. IMPRESSION: 1. No acute intracranial abnormality. 2. Atrophy and chronic microangiopathic change in supratentorial white matter. Electronically signed by: Piter Meraz On 02/24/2019 20:00:51 PM
[2019-02-24 20:03] LABS: BASO % 0.3 % (0.0-1.0); EOS % 0.3 % (0.0-3.0); HEMATOCRIT 36.3 % (36.0-47.0); HEMOGLOBIN 11.7 g/dl (12.0-15.5); LYMPH # 0.8 10^3/uL (1.5-4.5); LYMPH % 13.2 % (24.0-44.0); MEAN CORPUSCULAR HEMOGLOBIN 30.6 pg (27.0-33.0); MEAN CORPUSCULAR HGB CONC 32.2 g/dl (32.0-36.5); MONO # 0.6 10^3/uL (0.0-0.8); NEUTROPHILS # 4.9 10^3/uL (1.8-7.7); NEUTROPHILS % 76.9 % (36.0-66.0); PLATELET COUNT, AUTOMATED 209 10^3/uL (150-450); RED BLOOD COUNT 3.82 10^6/uL (4.00-5.40); WHITE BLOOD COUNT 6.3 10^3/uL (4.0-10.0)
[2019-02-24 20:20] LABS: ALBUMIN 3.5 GM/DL (3.2-5.2); ALT/SGPT 20 U/L (12-78); BILIRUBIN,DIRECT 0.1 MG/DL (0.0-0.2); BILIRUBIN,TOTAL 0.4 MG/DL (0.2-1.0); BLOOD UREA NITROGEN 22 MG/DL (7-18); CALCIUM LEVEL 8.7 MG/DL (8.8-10.2); CARBON DIOXIDE LEVEL 31 MEQ/L (21-32); CHLORIDE LEVEL 105 MEQ/L (98-107); CPK CREATINE PHOSPHOKINASE 67 U/L (26-192); CREATININE FOR GFR 1.03 MG/DL (0.55-1.30); GLOMERULAR FILTRATION RATE 53.7 (>32); GLUCOSE, FASTING 129 MG/DL (70-100); MB/CK RELATIVE INDEX 2.09 (< OR =4); POTASSIUM SERUM 4.5 MEQ/L (3.5-5.1); SODIUM LEVEL 138 MEQ/L (136-145); TOTAL PROTEIN 7.6 GM/DL (6.4-8.2); TROPONIN I < 0.02 NG/ML (< 0.10)
[2019-02-24] MEDS ORDERED: MECL12.575 PO (20:25)
[2019-02-24 20:31] VITALS: BP 150/74
--- NOTE | 2019-02-24 20:45 | REP ---
CHEST, SINGLE VIEW: Single view of the chest is performed. Comparison 07/20/2018. There is cardiomegaly again noted. There is calcification of the thoracic aorta. The mediastinal silhouette is unchanged. There is mild biapical pleural thickening again noted as well as scattered interstitial fibrosis. No acute infiltrate is seen. IMPRESSION: Cardiomegaly and chronic interstitial fibrotic change. No acute infiltrate. Electronically Signed by Viral Marin MD 02/25/2019 03:09 P
--- NOTE | 2019-02-26 20:51 | ECGEPIP ---
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
== END 2019-02-24 20:55 | disposition home or self-care (01) ==
LOC: M ED 17:41 → EDBD 17:41 → M ED 20:55
DX: H81.10 Benign paroxysmal vertigo, unspecified ear (principal)

== ENCOUNTER 2019-02-27 21:21 | Observation (INO) | payer MEDICARE ==
[~2019-02-27] VITALS: Ht 147.3 cm; Wt 40.9 kg
[~2019-02-27 21:21] MED LIST changes: +MECL12.575 PO
[2019-02-27] MEDS ORDERED: ACETAMINOPHEN TAB 650MG DOSE (2X325MG) PO ONE (21:45)
[2019-02-27] MEDS ORDERED: ACETAMINOPHEN 325 MG TAB As Ordered ONE (21:50)
[2019-02-27 22:07] LABS: BASO % 0.2 % (0.0-1.0); EOS % 0.3 % (0.0-3.0); HEMATOCRIT 37.3 % (36.0-47.0); HEMOGLOBIN 12.1 g/dl (12.0-15.5); LYMPH # 0.9 10^3/uL (1.5-4.5); LYMPH % 9.6 % (24.0-44.0); MEAN CORPUSCULAR HEMOGLOBIN 30.9 pg (27.0-33.0); MEAN CORPUSCULAR HGB CONC 32.4 g/dl (32.0-36.5); MEAN CORPUSCULAR VOLUME 95.2 fl (80.0-96.0); MONO # 0.8 10^3/uL (0.0-0.8); MONO % 9.3 % (0.0-5.0); NEUTROPHILS # 7.3 10^3/uL (1.8-7.7); NEUTROPHILS % 80.3 % (36.0-66.0); PLATELET COUNT, AUTOMATED 189 10^3/uL (150-450); RED BLOOD COUNT 3.92 10^6/uL (4.00-5.40); WHITE BLOOD COUNT 9.1 10^3/uL (4.0-10.0)
[2019-02-27] MEDS ORDERED: ACETAMINOPHEN 325 MG TAB PO ONE (22:15)
[2019-02-27 22:17] LABS: APPEARANCE, URINE HAZY (CLEAR); BACTERIA, URINE AUTO 1+ (NEGATIVE); BILIRUBIN, URINE AUTO NEGATIVE (NEGATIVE); BLOOD, URINE BLOOD 2+ (NEGATIVE); COLOR, URINE YELLOW (YELLOW); GLUCOSE, URINE (UA) AUTO NEGATIVE (NEGATIVE); KETONE, URINE AUTO NEGATIVE (NEGATIVE); LEUKOCYTE ESTERASE, URINE AUTO TRACE (NEGATIVE); MUCUS, URINE SMALL (NEGATIVE); NITRITE, URINE AUTO POSITIVE (NEGATIVE); PROTEIN, URINE AUTO NEGATIVE (NEGATIVE); RBC, URINE AUTO 5 /HPF (0-3); SPECIFIC GRAVITY URINE AUTO 1.009 (1.002-1.035); SQUAMOUS EPITHELIAL CELL UR AU 0 /HPF (0-6); UROBILINOGEN, URINE AUTO 0.2 mg/dL (0.0-2.0); WBC, URINE AUTO 3 /HPF (0-3)
[2019-02-27 22:40] LABS: ALBUMIN 3.7 GM/DL (3.2-5.2); BILIRUBIN,DIRECT 0.1 MG/DL (0.0-0.2); BILIRUBIN,TOTAL 0.4 MG/DL (0.2-1.0); CALCIUM LEVEL 8.7 MG/DL (8.8-10.2); CREATININE FOR GFR 1.21 MG/DL (0.55-1.30); GLOMERULAR FILTRATION RATE 44.6 (>32); POTASSIUM SERUM 4.6 MEQ/L (3.5-5.1); TOTAL PROTEIN 7.7 GM/DL (6.4-8.2)
[2019-02-27] MEDS ORDERED: NS 500 ML IV ONE (22:45)
[2019-02-27 23:23] LABS: FREE THYROXINE INDEX 2.3 % (1.3-4.8); THYROID STIMULATING HORMONE 1.96 uIU/ML (0.358-3.740); THYROXINE (T4) 6.9 UG/DL (4.5-12.0)
[2019-02-27 23:42] LABS: INR 2.28; PARTIAL THROMBOPLASTIN TIME 34.3 SECONDS (25.4-37.6); PROTHROMBIN TIME 25.6 SECONDS (12.1-14.4)
[2019-02-27 23:49] LABS: INFLUENZA A AMPLIFICATION NEGATIVE (NEGATIVE); INFLUENZA B AMPLIFICATION NEGATIVE (NEGATIVE)
[2019-02-28] MEDS ORDERED: IBUPROFEN 600 MG TAB PO ONE (00:45)
[2019-02-28] MEDS ORDERED: AZITHROMYCIN INJ 500 MG, VIAL MATE ADAPTER 1 EACH in D5W 250 ML IV ONE (00:45)
[2019-02-28] MEDS ORDERED: cefTRIAXone SOD 1 GM in D5W MINI-BAG PLUS 50 ML IV ONE (00:45)
[2019-02-28] MEDS ORDERED: BISA5TAB5 PO (01:35)
[2019-02-28] MEDS ORDERED: QUET5TAB PO (01:35)
[2019-02-28] MEDS ORDERED: DIGO0.12 PO (01:35)
[2019-02-28] MEDS ORDERED: DOCU100C16 PO (01:35)
[2019-02-28] MEDS ORDERED: RANI150T PO (01:35)
[2019-02-28] MEDS ORDERED: MECL12.575 PO (01:36)
[2019-02-28] MEDS ORDERED: MAALOX 30 ML SUSP *UDC PO PRN (04:45)
[2019-02-28] MEDS ORDERED: MOM 30ML SUSPENSION UDC PO PRN (04:45)
[2019-02-28] MEDS ORDERED: ACETAMINOPHEN TAB 650MG DOSE (2X325MG) PO PRN (04:45)
--- NOTE | 2019-02-28 04:45 | HPEPDOC ---
General Date of Admission Chief Complaint The patient is a 88-year-old female admitted with a reason for visit of [facility]. History of Present Illness Ms. Falk is an 88 years old woman who was brought to ER by family members due to fever, confusion, generalized weakness, lethargy and dysuria for one day. In the ER, pt had a fever of 103.8F, with normal hemodynamic. CXR: chronic fibrotic changes. UA: +nitrate, 1+ bacteria. When I first saw the patient in the ER, she complained of abdominal pain which was tender on palpation, but it resolved one hour later when I revisited her. She was given IV Rocephin and Zithromax, and IV fluid empirically in the ER due to concern for pneumonia based on CXR finding. She improved quickly. She improved quickly. She is alert, oriented x 3. She is reluctant to give any hx because she says she is fine and wants to go home. Spoke with the daughter on the phone- agreed on overnight observation. I initially wanted to do CT scan due to abdominal pain and abnormal CXR, which pt refused, and I think this can be avoided and pt observed only for now since she is already improving. This was also discussed with and agreed by the daughter. Lab shows no leucocytosis. O2 sat 96% in RA. Home Medications Scheduled Aspirin (Aspirin EC) 81 Mg Tab, 81 MG PO DAILY, (Reported) Atorvastatin Calcium (Atorvastatin Calcium) 20 Mg Tab, 20 MG PO QHS, (Reported) Cholecalciferol (Vitamin D3) (Vitamin D3) 2,000 Unit Cap, 2,000 UNIT PO DAILY, (Reported) Cod Liver Oil (Cod Liver Oil) 1 Cap Cap, 1 CAP PO DAILY, (Reported) Digoxin (Digoxin) 125 Mcg Tablet, 125 MCG PO DAILY, (Reported) Docusate Sodium (Docusate Sodium) 100 Mg Capsule, 100 MG PO DAILY, (Reported) Fluticasone/Vilanterol (Breo Ellipta 100-25 Mcg INH) 1 Inh Inh, 1 PUFF INH DAILY, (Reported) Furosemide (Furosemide) 20 Mg Tab, 20 MG PO DAILY, (Reported) Levothyroxine Sodium (Synthroid) 50 Mcg Tab, 50 MCG PO DAILY, (Reported) Metoprolol Tartrate (Metoprolol Tartrate) 25 Mg Tab, 12.5 MG PO DAILY, (Reported) Phytonadione (Vit K1) (Vitamin K) 100 Mcg Tab, 100 MCG PO DAILY, (Reported) Potassium Chloride (Klor-Con M10) 10 Meq Tabcr, 20 MEQ PO DAILY, (Reported) Quetiapine Fumarate (Quetiapine Fumarate) 50 Mg Tablet, 50 MG PO BID, (Reported) Ranitidine HCl (Ranitidine HCl) 150 Mg Tablet, 1 TAB PO BID, (Reported) Warfarin Sodium (Coumadin) 2.5 Mg Tab, 2.5 MG PO QHS, (Reported) Scheduled PRN Albuterol Sulfate (Proair Hfa) 108 Mcg/Act Aer, 2 PUFFS INH QID PRN for SHORTNESS OF BREATH, (Reported) Bisacodyl (Bisacodyl) 5 Mg Tablet.dr, 5 MG PO DAILY PRN for CONSTIPATION, (Reported) Meclizine HCl (Meclizine HCl) 12.5 Mg Tablet, 12.5 MG PO TID PRN for DIZZINESS, (Reported) Allergies Coded Allergies: METALS (Verified Allergy, Mild, ITCHY,BREAKS OUT, 02/24/19) mold (Verified Allergy, Unknown, unknown, 02/24/19) cyclopentolate (Verified Adverse Reaction, Severe, stroke like symptoms, 02/24/19) tramadol (Verified Adverse Reaction, Intermediate, hallucinations; confusi on, 02/24/19) Past Medical History Medical History Atrial fibrillation on Coumadin, COPD, Chronic Pulmonary Fibrosis, CAD status post PCI, PPM, history of PE, hyper , osteoporosis, hypertension, CK D stage III Surgical History PPM, CAD status post PCI, left knee arthroplasty, bilateral cataracts, appendectomy, wrist surgery Family History Significant Family History: No pertinent family hx Social History * Smoker: Denies Alcohol: Denies Drugs: denies A-FIB/CHADSVASC A-FIB History Current/History of A-Fib/PAF?: Yes Current Oral Anticoagulant The: Yes Review of Systems Other systems Unable to obtain due to patient's poor cooperation. Info obtained from family mentioned in HPI Physical Examination General Exam: Positive: Alert, No Acute Distress ENT Exam: Positive: Atraumatic Neck Exam: Positive: Supple; Negative: JVD Chest Exam: Positive: Clear to auscultation, Normal air movement Heart Exam: Positive: Rate Normal, Regular Rhythm Abdomen Exam: Positive: Normal bowel sounds, Soft, Tenderness (initially tender on palpation, but resolved in one hour on repeat exam) Extremity Exam: Negative: Edema Neuro Exam: Positive: Normal Speech Psych Exam: Positive: Mental status NL Vital Signs Vital Signs Date Time Temp Pulse Resp B/P (MAP) Pulse Ox O2 Delivery O2 Flow Rate FiO2 02/28/19 04:06 84 24 136/82 (100) 95 Room Air 02/28/19 02:38 99.5 2.0 Laboratory Data Labs 24H Laboratory Tests 2 02/27/19 21:56: Immature Granulocyte % (Auto) 0.3, White Blood Count 9.1, Red Blood Count 3.92L, Hemoglobin 12.1, Hematocrit 37.3, Mean Corpuscular Volume 95.2, Mean Corpuscular Hemoglobin 30.9, Mean Corpuscular Hemoglobin Concent 32.4, Red Cell Distribution Width 12.8, Platelet Count 189, Neutrophils (%) (Auto) 80.3H, Lymphocytes (%) (Auto) 9.6L, Monocytes (%) (Auto) 9.3H, Eosinophils (%) (Auto) 0.3, Basophils (%) (Auto) 0.2, Neutrophils # (Auto) 7.3, Lymphocytes # (Auto) 0.9L, Monocytes # (Auto) 0.8, Eosinophils # (Auto) 0.0, Basophils # (Auto) 0.0, Nucleated Red Blood Cells % (auto) 0.0, Anion Gap 6L, Glomerular Filtration Rate 44.6, Calcium Level 8.7L, Aspartate Amino Transf (AST/SGOT) 30, Alanine Aminotransferase (ALT/SGPT) 24, Alkaline Phosphatase 146H, Total Bilirubin 0.4, Direct Bilirubin 0.1, Total Protein 7.7, Albumin 3.7, Albumin/Globulin Ratio 0.93L, Thyroid Stimulating Hormone (TSH) 1.960, Free Thyroxine Index 2.3, Thyroxine (T4) 6.9, Triiodothyronine (T3) Uptake 34 02/27/19 21:57: Urine Appearance HAZY, Urine Color YELLOW, Urine pH 5.0, Urine Specific [place] 1.009, Urine Protein NEGATIVE, Urine Glucose (UA) NEGATIVE, Urine Ketones NEGATIVE, Urine Urobilinogen 0.2, Urine Bilirubin NEGATIVE, Urine Leukocyte Esterase TRACEH, Urine Blood 2+H, Urine Nitrite POSITIVE, Urine WBC (Auto) 3, Urine RBC (Auto) 5H, Urine Hyaline Casts (Auto) 0, Urine Bacteria (Auto) 1+H, Urine Squamous Epithelial Cells 0, Urine Mucus (Auto) SMALL, Urine Sperm (Auto) , Lactic Acid Level 2.1*H 02/27/19 22:52: Influenza Type A (RT-PCR) NEGATIVE, Influenza Type B (RT-PCR) NEGATIVE 02/27/19 23:12: Prothrombin Time 25.6H, Prothromb Time International Ratio 2.28, Activated Partial Thromboplast Time 34.3 CBC/BMP Laboratory Tests 02/27/19 21:56 Red Blood Count 3.92 L, Mean Corpuscular Volume 95.2, Mean Corpuscular Hemoglobin 30.9, Mean Corpuscular Hemoglobin Concent 32.4, Red Cell Distribution Width 12.8, Neutrophils (%) (Auto) 80.3 H, Lymphocytes (%) (Auto) 9.6 L, Monocytes (%) (Auto) 9.3 H, Eosinophils (%) (Auto) 0.3, Basophils (%) (Auto) 0.2, Neutrophils # (Auto) 7.3, Lymphocytes # (Auto) 0.9 L, Monocytes # (Auto) 0.8, Eosinophils # (Auto) 0.0, Basophils # (Auto) 0.0 Microbiology Microbiology 02/27/19 Blood Culture, Received Pending 02/27/19 Blood Culture, Received Pending 02/27/19 Urine Culture, Received Pending Assessment/Plan Uncomplicated UTI, with resolving Acute Metabolic Encephalopathy - Keep on observation due to risk of decompensation/ poor cooperation from patient - Pt has received a dose of IV Rocephin the ER; start on Oral Cipro. May escalate to IV antibiotic if clinical condition worsening - May discharge home in the afternoon if stable Continue home meds for chronic conditions as mentioned in HPI. Plan / VTE VTE Prophylaxis Ordered?: No VTE Exclusion Mechanical Proph: Low Risk for VTE VTE Exclusion Pharmacological: At Low Risk for VTE Plan Anticipated Discharge: Home JIMMIE VANG MD February 28, 2019 04:45
[2019-02-28] MEDS ORDERED: MECLIZINE 12.5 MG TAB PO PRN (05:00)
[2019-02-28] MEDS ORDERED: ALBUTEROL 90 MCG/ACT 8GM HFA INHALER INH PRN (05:00)
[2019-02-28] MEDS ORDERED: LEVOTHYROXINE 50MCG TABLET (0.05MG) PO SCH (06:00)
[2019-02-28] MEDS ORDERED: CIPROFLOXACIN 250 MG TAB PO SCH (06:00)
--- NOTE | 2019-02-28 08:38 | REP ---
Portable chest x-ray: Two views presented. History: Systemic inflammatory response syndrome. Comparison study: February 24, 2019. Findings: Cardiomegaly is observed. There is linear plate-like atelectasis in the left base unchanged. There is biapical pleuroparenchymal fibrosis. This is more prominent on the right than the left and is unchanged from November 24, 2017. Epicardial pacemaker leads are observed. Tracheobronchial calcification is noted. There is diffuse osteopenia. Interstitial fibrosis pattern is seen diffusely. No pleural effusion or focal infiltrate is seen. Impression: Cardiomegaly. Discoid atelectasis left base. Chronic changes. No acute infiltrate seen. Electronically Signed by Chandana Vallejo MD 02/28/2019 10:43 A
[2019-02-28] MEDS ORDERED: raNITIdine SYRUP 150 MG/10 ML UDC PO SCH (09:00)
[2019-02-28] MEDS ORDERED: METOPROLOL TART 12.5 MG PER 1/2 TAB PO SCH (09:00)
[2019-02-28] MEDS ORDERED: ASPIRIN 81 MG ENTERIC TAB PO SCH (09:00)
[2019-02-28] MEDS ORDERED: QUEtiapine FUMARATE 50 MG TAB PO SCH (09:00)
[2019-02-28] MEDS ORDERED: NITROFURANTOIN (MACROBID) 100 MG CAP PO SCH (09:00)
[2019-02-28] MEDS ORDERED: FUROSEMIDE 20 MG TAB PO SCH (09:00)
[2019-02-28] MEDS ORDERED: VITAMIN D 1,000 INTERNATIONAL UNITS TABLET PO SCH (09:00)
[2019-02-28] MEDS ORDERED: DOCUSATE SODIUM 100 MG CAP PO SCH (09:00)
[2019-02-28] MEDS ORDERED: DIGOXIN 0.125 MG TAB PO SCH (09:00)
[2019-02-28 11:06] VITALS: BP 108/53
[2019-02-28 12:00] VITALS: BP 114/54
[2019-02-28] MEDS ORDERED: CEFD1CAP8 PO (13:00)
--- NOTE | 2019-02-28 13:18 | DS.PDOC ---
Discharge Summary General Date of Admission February 27, 2019 at 21:22 Date of Discharge 02/28/19 Discharge Summary PROCEDURES PERFORMED DURING STAY: [None]. ADMITTING DIAGNOSES: Acute Metabolic Encephalopathy, resolved Abdominal pain, resolved UTI DISCHARGE DIAGNOSES: Acute Metabolic Encephalopathy, resolved Abdominal pain, resolved UTI hx Atrial fibrillation on Coumadin hx COPD hx Chronic Pulmonary Fibrosis hx CAD status post PCI, PPM history of PE hx osteoporosis hx hypertension hx CK D stage III COMPLICATIONS/CHIEF COMPLAINT: UTI. HISTORY OF PRESENT ILLNESS: [Ms. aFlk is an 88 years old woman who was brought to ER by family members due to fever, confusion, generalized weakness, lethargy and dysuria for one day. In the ER, pt had a fever of 103.8F, with normal hemodynamic. CXR: chronic fibrotic changes. UA: +nitrate, 1+ bacteria. When I first saw the patient in the ER, she complained of abdominal pain which was tender on palpation, but it resolved one hour later when I revisited her. She was given IV Rocephin and Zithromax, and IV fluid empirically in the ER due to concern for pneumonia based on CXR finding. She improved quickly. She improved quickly. She is alert, oriented x 3. She is reluctant to give any hx because she says she is fine and wants to go home. Spoke with the daughter on the phone- agreed on overnight observation. I initially wanted to do CT scan due to abdominal pain and abnormal CXR, which pt refused, and I think this can be avoided and pt observed only for now since she is already improving. This was also discussed with and agreed by the daughter. Lab shows no leucocytosis. O2 sat 96% in RA.]. HOSPITAL COURSE: [88 yr old F with Atrial fibrillation on Coumadin, COPD, Chronic Pulmonary Fibrosis, CAD status post PCI, PPM, history of PE, osteoporosis, hypertension, CK D stage III brought in by family due to complaints mentioned above. Patient was treated with IV Rocephin with complete resolution of her confusion. Patient found to have UTI. Her chest x-ray did not show acute infiltrate. Patient was started on ciprofloxacin by mouth and continued to have clear mentation without any arrhythmias. Patient refused CT studies and family agreed. Patient had resolution of her acute metabolic encephalopathy and abdominal pain most likely from UTI. As patient's currently on Coumadin and with poor renal function patient will be discharged home on Cefdinir renally dose. I spoke to pharmacy and with their assistance adjusted discharge antibiotic medication. Patient and family was encouraged to follow up with PCP within 3 days for urine culture and blood culture official report. ]. DISCHARGE MEDICATIONS: Please see below. ALLERGIES: Please see below. PHYSICAL EXAMINATION ON DISCHARGE: VITAL SIGNS: Please see below. GENERAL APPEARANCE: Resting comfortably and very pleasant. Patient refused CT studies and had logical reason including resolution of her symptoms. HEENT: Normocephalic, PERRLA, Mucous moist, CARDIOVASCULAR: S1,S2, pulse present , irregularly irregular LUNGS: Equal air entry b/l, no wheezes or crackle ABDOMEN: Soft, BS present, no tenderness, no guarding, ate breakfast without difficulty or abdominal discomfort. GENITOURINARY: No Amaya EXTREMITIES: B/L no edema, capillary refill present SKIN: Warm, No fever NEUROLOGICAL: Cranial nerves grossly intact PSYCHIATRIC: Normal mood and affect for current situation LABORATORY DATA: Please see below. IMAGING: [CXR: Cardiomegaly. Discoid atelectasis left base. Chronic changes. No acute infiltrate seen.] ACTIVITY: [As tolerated]. DIET: [Cardiac diet, low salt] DISPOSITION: Home with family . DISCHARGE INSTRUCTIONS: Please follow up with PCP within 3 days. ITEMS TO FOLLOWUP ON ON OUTPATIENT: Please follow up with PCP within 3 days for urine culture and blood culture official report. DISCHARGE CONDITION: [Stable]. TIME SPENT ON DISCHARGE: Greater than [40] minutes. Vital Signs/I&Os Vital Signs Date Time Temp Pulse Resp B/P (MAP) Pulse Ox O2 Delivery O2 Flow Rate FiO2 02/28/19 12:45 77 92 Room Air 02/28/19 12:00 114/54 (74) 02/28/19 11:00 24 02/28/19 10:32 98.2 02/28/19 02:38 2.0 I&O- Last 24 Hours up to 6 AM 02/28/19 06:00 Intake Total 550 ml Balance 550 ml Laboratory Data Labs 24H Laboratory Tests 2 02/27/19 21:56: Immature Granulocyte % (Auto) 0.3, White Blood Count 9.1, Red Blood Count 3.92L, Hemoglobin 12.1, Hematocrit 37.3, Mean Corpuscular Volume 95.2, Mean Corpuscular Hemoglobin 30.9, Mean Corpuscular Hemoglobin Concent 32.4, Red Cell Distribution Width 12.8, Platelet Count 189, Neutrophils (%) (Auto) 80.3H, Lymphocytes (%) (Auto) 9.6L, Monocytes (%) (Auto) 9.3H, Eosinophils (%) (Auto) 0.3, Basophils (%) (Auto) 0.2, Neutrophils # (Auto) 7.3, Lymphocytes # (Auto) 0.9L, Monocytes # (Auto) 0.8, Eosinophils # (Auto) 0.0, Basophils # (Auto) 0.0, Nucleated Red Blood Cells % (auto) 0.0, Anion Gap 6L, Glomerular Filtration Rate 44.6, Calcium Level 8.7L, Aspartate Amino Transf (AST/SGOT) 30, Alanine Aminotransferase (ALT/SGPT) 24, Alkaline Phosphatase 146H, Total Bilirubin 0.4, Direct Bilirubin 0.1, Total Protein 7.7, Albumin 3.7, Albumin/Globulin Ratio 0.93L, Thyroid Stimulating Hormone (TSH) 1.960, Free Thyroxine Index 2.3, Thyroxine (T4) 6.9, Triiodothyronine (T3) Uptake 34 02/27/19 21:57: Urine Appearance HAZY, Urine Color YELLOW, Urine pH 5.0, Urine Specific [place] 1.009, Urine Protein NEGATIVE, Urine Glucose (UA) NEGATIVE, Urine Ketones NEGATIVE, Urine Urobilinogen 0.2, Urine Bilirubin NEGATIVE, Urine Leukocyte Esterase TRACEH, Urine Blood 2+H, Urine Nitrite POSITIVE, Urine WBC (Auto) 3, Urine RBC (Auto) 5H, Urine Hyaline Casts (Auto) 0, Urine Bacteria (Auto) 1+H, Urine Squamous Epithelial Cells 0, Urine Mucus (Auto) SMALL, Urine Sperm (Auto) , Lactic Acid Level 2.1*H 02/27/19 22:52: Influenza Type A (RT-PCR) NEGATIVE, Influenza Type B (RT-PCR) NEGATIVE 02/27/19 23:12: Prothrombin Time 25.6H, Prothromb Time International Ratio 2.28, Activated Partial Thromboplast Time 34.3 02/28/19 08:12: Lactic Acid Level 1.8 CBC/BMP Laboratory Tests 02/27/19 21:56 Red Blood Count 3.92 L, Mean Corpuscular Volume 95.2, Mean Corpuscular Hemoglobin 30.9, Mean Corpuscular Hemoglobin Concent 32.4, Red Cell Distribution Width 12.8, Neutrophils (%) (Auto) 80.3 H, Lymphocytes (%) (Auto) 9.6 L, Monocytes (%) (Auto) 9.3 H, Eosinophils (%) (Auto) 0.3, Basophils (%) (Auto) 0.2, Neutrophils # (Auto) 7.3, Lymphocytes # (Auto) 0.9 L, Monocytes # (Auto) 0.8, Eosinophils # (Auto) 0.0, Basophils # (Auto) 0.0 Microbiology Microbiology 02/27/19 Blood Culture, Received Pending 02/27/19 Blood Culture, Received Pending 02/27/19 Urine Culture, Received Pending Discharge Medications Scheduled Aspirin (Aspirin EC) 81 Mg Tab, 81 MG PO DAILY, (Reported) Atorvastatin Calcium (Atorvastatin Calcium) 20 Mg Tab, 20 MG PO QHS, (Reported) Cefdinir (Cefdinir) 300 Mg Capsule, 1 CAP PO DAILY Cholecalciferol (Vitamin D3) (Vitamin D3) 2,000 Unit Cap, 2,000 UNIT PO DAILY, (Reported) Cod Liver Oil (Cod Liver Oil) 1 Cap Cap, 1 CAP PO DAILY, (Reported) Digoxin (Digoxin) 125 Mcg Tablet, 125 MCG PO DAILY, (Reported) Docusate Sodium (Docusate Sodium) 100 Mg Capsule, 100 MG PO DAILY, (Reported) Fluticasone/Vilanterol (Breo Ellipta 100-25 Mcg INH) 1 Inh Inh, 1 PUFF INH DAILY, (Reported) Furosemide (Furosemide) 20 Mg Tab, 20 MG PO DAILY, (Reported) Levothyroxine Sodium (Synthroid) 50 Mcg Tab, 50 MCG PO DAILY, (Reported) Metoprolol Tartrate (Metoprolol Tartrate) 25 Mg Tab, 12.5 MG PO DAILY, (Reported) Phytonadione (Vit K1) (Vitamin K) 100 Mcg Tab, 100 MCG PO DAILY, (Reported) Potassium Chloride (Klor-Con M10) 10 Meq Tabcr, 20 MEQ PO DAILY, (Reported) Quetiapine Fumarate (Quetiapine Fumarate) 50 Mg Tablet, 50 MG PO BID, (Reported) Ranitidine HCl (Ranitidine HCl) 150 Mg Tablet, 1 TAB PO BID, (Reported) Warfarin Sodium (Coumadin) 2.5 Mg Tab, 2.5 MG PO QHS, (Reported) Scheduled PRN Albuterol Sulfate (Proair Hfa) 108 Mcg/Act Aer, 2 PUFFS INH QID PRN for SHORTNESS OF BREATH, (Reported) Bisacodyl (Bisacodyl) 5 Mg Tablet.dr, 5 MG PO DAILY PRN for CONSTIPATION, (Reported) Meclizine HCl (Meclizine HCl) 12.5 Mg Tablet, 12.5 MG PO TID PRN for DIZZINESS, (Reported) Allergies Coded Allergies: METALS (Verified Allergy, Mild, ITCHY,BREAKS OUT, 02/24/19) mold (Verified Allergy, Unknown, unknown, 02/24/19) cyclopentolate (Verified Adverse Reaction, Severe, stroke like symptoms, 02/24/19) tramadol (Verified Adverse Reaction, Intermediate, hallucinations; confusion, 02/24/19) NETTIE BURROWS MD February 28, 2019 13:18
[2019-02-28] MEDS ORDERED: WARFARIN SOD 2.5 MG TAB PO SCH (21:00)
[2019-02-28] MEDS ORDERED: ATORVASTATIN 20 MG TAB PO SCH (21:00)
== END 2019-02-28 08:00 | disposition home or self-care (01) ==
LOC: M ED 21:21 → M ED INP 21:22
PROVIDERS: ADMIT Internal Medicine; ATTEND Internal Medicine
DX: G93.41 Metabolic encephalopathy (principal); N39.0 Urinary tract infection, site not specified; I48.91 Unspecified atrial fibrillation; Z79.01 Long term (current) use of anticoagulants; J44.9 Chronic obstructive pulmonary disease, unspecified; J84.10 Pulmonary fibrosis, unspecified; I12.9 Hypertensive chronic kidney disease with stage 1 through stage 4 chronic kidney disease, or unspecified chronic kidney disease; I25.10 Atherosclerotic heart disease of native coronary artery without angina pectoris; Z86.711 Personal history of pulmonary embolism; N18.3 Chronic kidney disease, stage 3 (moderate); Z79.82 Long term (current) use of aspirin; Z79.899 Other long term (current) drug therapy
CPT/HCPCS: 36415; 71045; 80048; 80076; 81001; 83605; 84436; 84443; 84479; 85025; 85610; 85730; 87040; 87088; 87186; 87502; 93041; 94760; 96361; 96374; 96375; 99285; G0378; J0456; J0696

== ENCOUNTER → 2019-03-10 | Outpatient (REF) | payer MEDICARE ==
[~2019-03-10] MED LIST changes: +BISA5TAB5 PO; +DIGO0.12 PO; +DOCU100C16 PO; +QUET5TAB PO; +RANI150T PO
== END ==
LOC: M LAB REF 13:13
PROVIDERS: ATTEND Internal Medicine
DX: R30.0 Dysuria (principal)

== ENCOUNTER → 2019-07-05 | Outpatient (REF) | payer MEDICARE ==
[~2019-07-05] MED LIST changes: -DULO1CAP2; +DULO1CAP5
== END ==
LOC: M LAB REF 17:36
PROVIDERS: ATTEND Internal Medicine
DX: I48.2 Chronic atrial fibrillation (principal)

== ENCOUNTER → 2019-11-03 | Outpatient (CLI) | payer MEDICARE ==
[~2019-11-03] MED LIST changes: -AZIT500T2 PO; +AZIT500T5 PO; +BISA5TAB13 PO; -BISA5TAB5 PO; -CODCAP4 PO; +CODCAP5 PO; -DIGO0.12 PO; +DIGO0.123 PO; -MECL12.575 PO; +MECL12.589 PO
--- NOTE | 2019-11-03 14:10 | REP ---
CHEST TWO VIEWS: Two views of the chest is performed and compared with multiple prior exams, most recently 08/09/2019 at [facility]. There is again moderate cardiomegaly. There is calcification and tortuosity of the thoracic aorta. Mediastinal silhouette is unchanged. Scattered fibrotic changes are stable. There is mild apical pleural thickening. There is osteopenia with accentuation of thoracic kyphosis and multiple stable compression deformities of thoracic vertebral bodies. IMPRESSION: Stable chronic findings as discussed above. Moderate cardiomegaly. No evidence of acute infiltrate. Electronically Signed by Viral Marin MD 11/04/2019 03:19 P
== END ==
LOC: M WUC 12:36
PROVIDERS: ATTEND Physician Assistant
DX: I51.7 Cardiomegaly (principal); J44.1 Chronic obstructive pulmonary disease with (acute) exacerbation

== ENCOUNTER → 2019-11-15 | Outpatient (REF) | payer MEDICARE | LOC: M LAB REF 16:33 | PROVIDERS: ATTEND Internal Medicine | DX: I13.0 Hypertensive heart and chronic kidney disease with heart failure and stage 1 through stage 4 chronic kidney disease, or unspecified chronic kidney disease (principal); I50.32 Chronic diastolic (congestive) heart failure ==

== ENCOUNTER → 2019-11-20 | Outpatient (CLI) | payer MEDICARE ==
--- NOTE | 2019-11-20 13:44 | REPVR ---
PROCEDURE INFORMATION: Exam: CT Head Without Contrast Exam date and time: 11/20/2019 10:58 AM Age: 88 years old Clinical indication: Altered mental status/memory loss; Additional info: Dementia TECHNIQUE: Imaging protocol: Computed tomography of the head without contrast. Radiation optimization: All CT scans at this facility use at least one of these dose optimization techniques: automated exposure control; mA and/or kV adjustment per patient size (includes targeted exams where dose is matched to clinical indication); or iterative reconstruction. COMPARISON: CT Head without contrast 02/24/2019 7:02 PM FINDINGS: Brain: There is no acute intracranial hemorrhage, cerebral edema, or midline shift. Chronic microvascular ischemic changes are seen in the periventricular white matter. Age-related cerebral and cerebellar volume loss is present. Ventricles: Mild ex vacuo dilation of the lateral ventricles is noted. Bones/joints: No acute fracture. Sinuses: There is no acute sinusitis. Mastoid air cells: The mastoid air cells are clear. Orbits: The included orbital structures are unremarkable. Soft tissues: Unremarkable. Vasculature: Atherosclerotic calcifications are seen involving the cavernous carotid arteries. IMPRESSION: 1. No acute intracranial abnormality. 2. Atrophy and chronic deep white matter ischemic change. Electronically signed by: Matt Pina On 11/20/2019 13:44:35 PM
== END ==
LOC: M RAD 10:45
PROVIDERS: ATTEND Physician Assistant Medical
DX: R90.82 White matter disease, unspecified (principal); R44.1 Visual hallucinations; H93.12 Tinnitus, left ear; F02.81 Dementia in other diseases classified elsewhere, unspecified severity, with behavioral disturbance